=== PATIENT | male | born 1945 | race Caucasian/White ===

== ENCOUNTER 2021-07-05 09:01 | Inpatient (IN) ==
--- NOTE | 2021-07-05 09:17 | Emergency Department Note ---
Impression & Plan Small bowel obstruction, partial, Hypokalemia, Dehydration, Nausea, vomiting and diarrhea ED Provider Note NAME: BRENT SANCHEZ AGE: 76 SEX: M : 1945 ARRIVES VIA: Ambulance INFORMANT: Patient, ED PROVIDER(S): Alvaro Escobedo MD Chief Complaint: Weakness, fatigue HPI: Patient presents with the above complaints and states that they have been ongoing since Monday. Patient is complain of a mild productive cough but is unsure as whether or not he has discolored sputum. Patient is a former smoker last smoking 13 years prior. Patient has had dry heaves and associated nausea but no active vomiting. The patient does have mild diffuse abdominal discomfort and complains of some restless legs and associated achiness. Patient denies any falls or trauma. The patient did try to take some [id number] generic cough medication. This did not seem to improve his symptoms. Patient states he has had decreased appetite but is it been trying to hydrate and thinks that he has been sweating most of his water out to where he feels dehydrated. Patient did not take his morning medications today. The patient's symptoms of gotten progressively worse with no exacerbating remitting factors. Patient denies any rashes and has no pain to the spine, penis or testicles. Patient has not noticed any scrotal swelling or pain. Patient denies any hematuria dysuria hematochezia or difficulty with bowel movement. ROS: See HPI for pertinent positives and negatives. A total of 10 systems were reviewed and otherwise negative. Past medical history: See below Surgical history: See below Social history: See below Physical Exam: GENERAL: Fatigued in appearance, NAD, wearing glasses, wearing a mask, non-toxic. EYE EXAM: Normal conjunctiva. PERRL, no anisocoria and EOM's grossly intact w/o pain. NECK: Supple, no nuchal rigidity, no adenopathy, non-tender. No signs of meningismus. LUNGS: Clear to auscultation. Normal chest wall mechanics. HEART: NSR, no MRG. ABDOMEN: Abdomen soft, non-tender, normo-active bowel sounds, no masses, no rebound or guarding. BACK: No CVA TTP. SKIN: No rashes and no bruising. UPPER EXTREMITIES: Upper extremities are grossly normal. LOWER EXTREMITIES: Grossly normal, no edema. No notable findings, no asymmetry, no calf pain, negative Homans' sign, compartments are soft bilaterally. NEURO EXAM: A&O x3, cranial nerves II-XII grossly intact, normal speech, moves all 4 extremities on command w/o issue. Differential diagnoses: Infection, dehydration, metabolic abnormality, hypo/hyperglycemia, electrolyte disturbance, anemia, hypoxia, cardiac sources, intracerebral event, toxicologic, neurologic, as well as other pathologies. Course: Patient was seen and evaluated the bedside. Full history physical exam was performed. EKG interpreted by me Normal sinus rhythm, rate of 72, normal intervals, normal axis, no obvious ST elevations or TWI. Imaging Studies: See Below Cardiac monitoring: An order was placed for continuous cardiac monitoring. The monitor shows a rate of 78 with sinus rhythm. MDM: Patient was seen due to concern for weakness abdominal discomfort dry heaves. The patient was ordered IV fluids antiemetics chest x-ray and CT abdomen pelvis blood work. Patient blood with a normal white counts and grossly normal hemoglobin at 13.9. Patient's kidney function is unremarkable with very mild hypokalemia. Urinalysis does not show evidence of obvious infection. CT does show enlarged appendix but may be secondary to mass. I did speak with the on-call radiologist Dr. Mcdaniel about this. Patient also has findings that may be consistent with a partial small bowel obstruction. The patient has had some dry heaves and did have diffuse abdominal discomfort but no focal right lower quadrant tenderness to palpation. I did speak the on-call hospitalist negrita Guido PA-C and the patient was admitted by Dr. Lucia. I did also message the general surgery team Abhinav Schwarz PA-C about the patient's SBO as well as the enlarged appendix. Past Med/Surg History Medical History Acute renal failure Coronary atherosclerosis of [place] coronary vessel Social History Smoking Status: Former smoker Preferred Language: Nauruan Feels Safe at Home: Yes Allergies Allergies Allergy/AdvReac Type Severity Reaction Status Date / Time gabapentin Allergy Unknown Unknown Unverified 07/05/21 09:50 duloxetine AdvReac Intermediate Insomnia Unverified 07/05/21 09:50 oxycodone AdvReac Intermediate Abdominal Unverified 07/05/21 09:50 Discomfort, Vomiting, Headache Home Meds Home Medications Medication Instructions Recorded Confirmed Flomax 5 mg PO DAILY 07/05/21 07/05/21 acetaminophen 325 mg tablet 650 mg PO TID PRN 07/05/21 07/05/21 albuterol sulfate 90 mcg/actuation 1 inh INHALATION QID PRN 07/05/21 07/05/21 aerosol inhaler amlodipine 2.5 mg tablet 2.5 mg PO DAILY 07/05/21 07/05/21 aspirin 81 mg tablet,delayed 81 mg PO DAILY 07/05/21 07/05/21 release budesonide-formoterol HFA 160 2 puff INHALATION BID 07/05/21 07/05/21 mcg-4.5 mcg/actuation aerosol inhaler buspirone 5 mg tablet 5 mg PO BID 07/05/21 07/05/21 cilostazol 100 mg tablet 100 mg PO BID 07/05/21 07/05/21 diclofenac sodium 1 % topical gel 2 g TOPICAL BID PRN 07/05/21 07/05/21 hydrocodone 10 mg-acetaminophen 1 tab PO Q6H PRN 07/05/21 07/05/21 325 mg tablet magnesium oxide 420 mg tablet 420 mg PO DAILY 07/05/21 07/05/21 metoprolol succinate 25 mg 12.5 mg PO DAILY 07/05/21 07/05/21 tablet,extended release 24 hr mirtazapine 30 mg tablet 15 mg PO HS 07/05/21 07/05/21 multivitamin 1 tab PO QAM 07/05/21 07/05/21 pantoprazole 20 mg tablet,delayed 20 mg PO DAILY 07/05/21 07/05/21 release pregabalin 150 mg capsule 150 mg PO BID 07/05/21 07/05/21 pregabalin 75 mg capsule 75 mg PO BID 07/05/21 07/05/21 rosuvastatin 40 mg tablet 40 mg PO DAILY 07/05/21 07/05/21 tamsulosin 0.4 mg capsule 0.4 mg PO HS 07/05/21 07/05/21 theophylline 400 mg 400 mg PO DAILY 07/05/21 07/05/21 tablet,extended release 24 hr tiotropium bromide 2.5 2 inh INHALATION QAM 07/05/21 07/05/21 mcg/actuation mist for inhalation Results & Data (ED) Vital Signs Vital Signs - 24 hr 07/05/21 09:08 07/05/21 09:12 07/05/21 10:00 Temperature 36.6 C Temperature Source Oral Pulse Rate 75 73 Pulse Rate [Finger] 74 Pulse Rhythm Regular Regular Pulse Rhythm [Finger] Regular Pulse Strength Normal Pulse Strength [Finger] Normal Respiratory Rate 20 20 19 Respiratory Effort / Characteristics Non-Labored Spontaneous Non-Labored Respiratory Depth Normal Normal Respiratory Pattern Regular Blood Pressure 195/71 H Blood Pressure [Left Arm] 146/60 H Blood Pressure Mean 112 Blood Pressure Mean [Left Arm] 88 Blood Pressure Position Sitting Blood Pressure Position [Left Arm] Sitting Pulse Oximetry 98 98 96 Oxygen Delivery Method Room Air Room Air Room Air Sepsis Recent Fever Within 48 Hours Yes Sepsis New/Unexplained Change in Mental Status No Sepsis Action Taken by Nursing No Action Required 07/05/21 10:47 07/05/21 10:48 07/05/21 12:00 Temperature Temperature Source Pulse Rate Pulse Rate [Finger] 70 69 Pulse Rhythm Pulse Rhythm [Finger] Regular Pulse Strength Pulse Strength [Finger] Normal Respiratory Rate 20 20 Respiratory Effort / Characteristics Non-Labored Spontaneous Non-Labored Spontaneous Respiratory Depth Normal Normal Respiratory Pattern Regular Regular Blood Pressure Blood Pressure [Left Arm] 174/63 H 174/70 H Blood Pressure Mean Blood Pressure Mean [Left Arm] 100 104 Blood Pressure Position Blood Pressure Position [Left Arm] Sitting Pulse Oximetry 98 98 97 Oxygen Delivery Method Room Air Room Air Room Air Sepsis Recent Fever Within 48 Hours Sepsis New/Unexplained Change in Mental Status Sepsis Action Taken by [facility] Medications Current Medication List: was personally reviewed by me Laboratory Data Attestation: I reviewed the patient's lab results. Result diagrams: 07/05/21 09:30 07/05/21 09:12 Lab Results 07/05/21 07/05/21 07/05/21 Range/Units 09:12 09:12 09:12 WBC (4.8-10.8) K/uL RBC (4.7-6.1) M/uL Hgb (14.0-18.0) g/dL Hct (42-52) % MCV (80-100) fL MCH (25-34) pg MCHC (32-36) g/dL RDW Std Deviation (36.4-46.3) fL RDW Coeff of Chauncey (11.5-14.5) % Plt Count (130-400) K/uL MPV (7.4-10.4) fL Immature Gran % (Auto) % Neut % (Auto) % Lymph % (Auto) % [place] % (Auto) % Eos % (Auto) % Baso % (Auto) % Neut # (Auto) (1.4-6.5) K/uL Lymph # (Auto) (1.2-3.4) K/uL [place] # (Auto) (0.11-0.59) K/uL Eos # (Auto) (0-0.5) K/uL Baso # (Auto) (0-0.2) K/uL Immature Gran # (Auto) (0.00-0.02) K/uL Sodium 137 (136-145) mmol/L Potassium 3.3 L (3.5-5.1) mmol/L Chloride 100 (98-107) mmol/L Carbon Dioxide 26 (21-32) mmol/L Anion Gap 11 (3-11) BUN 12 (6-23) mg/dl Creatinine 1.11 (0.6-1.4) mg/dl Est Cr Clr Drug Dosing 62.9 ml/min Est GFR ( Amer) 74.9 ml/min Est GFR (Non-Af Amer) 64.6 ml/min BUN/Creatinine Ratio 10.8 (10-20) Glucose 106 H (70-99(Fasting)) mg/dl Calcium 9.4 (8.5-10.1) mg/dl Phosphorus 2.9 (2.5-4.9) mg/dl Magnesium 1.7 (1.7-2.4) mg/dl Total Bilirubin 0.8 (0.2-1.0) mg/dl AST 11 L (13-39) U/L ALT 6 L (7-52) U/L Alkaline Phosphatase 110 H (34-104) U/L Total Protein 7.6 (6.0-8.3) gm/dl Albumin 4.6 (3.4-5.0) gm/dl Globulin 3.0 (2.5-4.0) gm/dl Albumin/Globulin Ratio 1.5 (0.9-2) TSH 2.629 (0.300-4.500) uIu/ml Urine Color Urine Appearance (Clear) Urine pH (4.5-7.5) Ur Specific [place] (1.000-1.030) Urine Protein (Negative) Urine Glucose (UA) (Negative) Urine Ketones (Negative) Urine Blood (Negative) Urine Nitrite (Negative) Urine Bilirubin (Negative) Urine Urobilinogen (Negative) Ur Leukocyte Esterase (Negative) SARS-CoV-2 (PCR) (Negative) Influenza Type A (PCR) (Neg) Influenza Type B (PCR) (Neg) RSV (RT-PCR) (Neg) 07/05/21 07/05/21 07/05/21 Range/Units 09:30 10:00 11:12 WBC 8.54 (4.8-10.8) K/uL RBC 4.74 (4.7-6.1) M/uL Hgb 13.9 L (14.0-18.0) g/dL Hct 40.5 L (42-52) % MCV 85.4 (80-100) fL MCH 29.3 (25-34) pg MCHC 34.3 (32-36) g/dL RDW Std Deviation 42.3 (36.4-46.3) fL RDW Coeff of Chauncey 13.4 (11.5-14.5) % Plt Count 151 (130-400) K/uL MPV 9.3 (7.4-10.4) fL Immature Gran % (Auto) 0.4 % Neut % (Auto) 69.8 % Lymph % (Auto) 16.2 % [place] % (Auto) 11.6 % Eos % (Auto) 1.9 % Baso % (Auto) 0.1 % Neut # (Auto) 5.97 (1.4-6.5) K/uL Lymph # (Auto) 1.38 (1.2-3.4) K/uL [place] # (Auto) 0.99 H (0.11-0.59) K/uL Eos # (Auto) 0.16 (0-0.5) K/uL Baso # (Auto) 0.01 (0-0.2) K/uL Immature Gran # (Auto) 0.03 H (0.00-0.02) K/uL Sodium (136-145) mmol/L Potassium (3.5-5.1) mmol/L Chloride (98-107) mmol/L Carbon Dioxide (21-32) mmol/L Anion Gap (3-11) BUN (6-23) mg/dl Creatinine (0.6-1.4) mg/dl Est Cr Clr Drug Dosing ml/min Est GFR ( Amer) ml/min Est GFR (Non-Af Amer) ml/min BUN/Creatinine Ratio (10-20) Glucose (70-99(Fasting)) mg/dl Calcium (8.5-10.1) mg/dl Phosphorus (2.5-4.9) mg/dl Magnesium (1.7-2.4) mg/dl Total Bilirubin (0.2-1.0) mg/dl AST (13-39) U/L ALT (7-52) U/L Alkaline Phosphatase (34-104) U/L Total Protein (6.0-8.3) gm/dl Albumin (3.4-5.0) gm/dl Globulin (2.5-4.0) gm/dl Albumin/Globulin Ratio (0.9-2) TSH (0.300-4.500) uIu/ml Urine Color Yellow Urine Appearance Clear (Clear) Urine pH 6.0 (4.5-7.5) Ur Specific [place] 1.040 H (1.000-1.030) Urine Protein Negative (Negative) Urine Glucose (UA) Negative (Negative) Urine Ketones Negative (Negative) Urine Blood Negative (Negative) Urine Nitrite Negative (Negative) Urine Bilirubin Negative (Negative) Urine Urobilinogen Negative (Negative) Ur Leukocyte Esterase Negative (Negative) SARS-CoV-2 (PCR) NEGATIVE (Negative) Influenza Type A (PCR) Negative (Neg) Influenza Type B (PCR) Negative (Neg) RSV (RT-PCR) Negative (Neg) Administered Medications Bisacodyl (Bisacodyl 5 Mg Tabec) 5 mg PO DAILY [facility] Stop: 08/04/21 15:14 Last Admin: 07/05/21 15:35 Dose: 5 mg Documented by: [id number] Lactated Ringer's (Lr) 1,000 mls @ 125 mls/hr IV .Q8H [facility] Stop: 07/06/21 05:55 Last Admin: 07/05/21 15:29 Dose: 125 mls/hr Documented by: [id number] Polyethylene Glycol (Polyethylene (Miralax) 17 Gm Pack) 17 gm PO DAILY JULES Stop: 08/04/21 15:14 Last Admin: 07/05/21 15:35 Dose: 17 gm Documented by: [id number] Discontinued Medications Sodium Chloride (Nss 1000ml) 1,000 mls @ 999 mls/hr IV .Q1H1M JULES Stop: 07/05/21 10:45 Last Infusion: 07/05/21 11:22 Dose: 0 mls/hr Documented by: [id number] Admin: 07/05/21 09:49 Dose: 999 mls/hr Documented by: [id number] Sodium Chloride (Nss 1000ml) 500 mls @ 999 mls/hr IV .Q31M ONE Stop: 07/05/21 11:49 Last Infusion: 07/05/21 12:14 Dose: 0 mls/hr Documented by: [id number] Admin: 07/05/21 11:22 Dose: 999 mls/hr Documented by: [id number] Acetaminophen (Ofirmev) 1,000 mg in 100 mls @ 400 mls/hr IV NOW STA Stop: 07/05/21 11:33 Last Infusion: 07/05/21 12:14 Dose: 0 mls/hr Documented by: [id number] Admin: 07/05/21 11:29 Dose: 400 mls/hr Documented by: [id number] Potassium Chloride (K Jesus / Wtr) 10 meq in 100 mls @ 100 mls/hr IV Q1H STA; Protocol Stop: 07/05/21 14:07 Last Admin: 07/05/21 13:47 Dose: 100 mls/hr Documented by: [id number] Ioversol (Optiray 320 100ml) 95 ml IV ONCE ONE Stop: 07/05/21 10:44 Last Admin: 07/05/21 10:36 Dose: 95 ml Documented by: [id number] Morphine Sulfate (Morphine Sulfate 4 Mg/Ml 1 Ml Carp\Vial) 4 mg IV NOW STA Stop: 07/05/21 09:42 Last Admin: 07/05/21 09:53 Dose: 4 mg Documented by: [id number] Ondansetron HCl (Ondansetron Inj 2 Mg/Ml 2 Ml Vial) 4 mg IV NOW STA Stop: 07/05/21 09:42 Last Admin: 07/05/21 09:53 Dose: 4 mg Documented by: [id number] Imaging Data Radiologist's Impression: Abdomen/Pelvis CT 04/18/22 09:41 CT OF THE ABDOMEN AND PELVIS WITH CONTRAST CLINICAL HISTORY: dry heaves, mild diffuse abdominal pain. COMPARISON STUDY: CT of the abdomen and pelvis June 01, 2014. TECHNIQUE: Following IV administration of 95 mL of Optiray, axial images of the abdomen and pelvis were obtained from the lung bases to the proximal femurs. Images were reviewed in the axial, sagittal, and coronal planes. IV contrast was administered without complication. Automated exposure control was utilized for the study. A dose lowering technique was utilized adhering to the principles of ALARA. CT DOSE: 713.16 mGy.cm FINDINGS: Emphysema is noted within the lower lungs. No pneumatosis, free air or portal venous gas is present. Probable hepatic steatosis. No hepatic lesions are present. There is no biliary or pancreatic ductal dilatation. The spleen and adrenal glands are normal. Multiple water attenuation bilateral renal lesions measure up to 6.3 cm. These reflect cysts. There are numerous subcentimeter renal lesions which are too small to characterize. There is no hydronephrosis. There are no urinary calculi. Colonic diverticulosis is noted without evidence for acute diverticulitis. The proximal jejunum is mildly dilated. There is gradual transition in caliber within the mid jejunum shown on axial image 186 of 461. The more distal small bowel is decompressed. Of note, there is nodular thickening of the mid to distal appendix. Appendiceal tip measures 1.6 cm in caliber. This represents a new finding since CT of June 01, 2014. There is no free air. At most, there is minimal periappendiceal stranding. 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 There is extensive plaque within the distal descending thoracic aorta as well as the abdominal aorta. No suspicious lesions or acute fractures within visualized skeletal structures. IMPRESSION: 1. Nodular thickening of the mid to distal appendix, measuring 1.6 cm in caliber. Equivocal periappendiceal stranding. The findings raise the possibility of an underlying appendiceal mass. Acute appendicitis is considered less likely but is within the differential and surgical consultation is recommended. Findings discussed with Dr. Escobedo at time of dictation. 2. Mild dilatation of the proximal jejunum with decompressed distal small bowel. A low-grade partial small bowel obstruction cannot be excluded. ACT 112: Positive. There are findings on this exam that require communication between the performing entity and the patient following Patient Test Result Information Act ([place] Act 112) guidelines. Electronically signed by: Jaylen Mcdaniel M.D. 07/05/2021 11:02 AM Chest X-Ray 07/05/21 09:41 XR chest 1V portable CLINICAL HISTORY: weakness COMPARISON STUDY: Chest radiograph June 01, 2014. FINDINGS: There is no pneumothorax or pleural effusion. Lung volumes are normal. No evidence for pulmonary edema. No consolidation to suggest pneumonia. Note is again made of upper lobe predominant reticulonodular interstitial thickening with suggestion of innumerable pulmonary nodules which were shown on chest radiograph of June 01, 2014. There is underlying emphysema. IMPRESSION: 1. No acute cardiopulmonary findings. 2. No change in upper lobe predominant reticulonodular interstitial thickening with suggestion of innumerable nodules since chest radiograph of June 01, 2014. Findings remain nonspecific although differential considerations include silicosis, sarcoidosis and coworkers pneumoconiosis. Although difficult to completely exclude by radiography, a neoplastic etiology is considered unlikely given stability. ACT 112: Negative or not required by law. Electronically signed by: Jaylen Mcdaniel M.D. 07/05/2021 10:12 AM Discharge Plan Visit Data Chief Complaint: Illness ED Provider: Alvaro Escobedo Discharge Problem: Small bowel obstruction, partial, Hypokalemia, Dehydration, Nausea, vomiting and diarrhea Patient Disposition: Admitted As Inpatient Discharge Instructions Interventions: ED Discharge Assessment Last Done: 07/05/21 14:05
[2021-07-05] MEDS ORDERED: ONDANSETRON INJ 2 MG/ML 2 ML VIAL IV STA (09:41)
[2021-07-05] MEDS ORDERED: MoRPHine SULFATE 4 MG/ML 1 ML CARP\\VIAL IV STA (09:41)
[2021-07-05] MEDS ORDERED: SODIUM CHLORIDE 0.9% 1000ML 1,000 ML IV SCH (09:45)
[2021-07-05 10:12] LABS: Basophils # (auto) 0.01 K/uL (0-0.2); Basophils % (auto) 0.1 %; Eosinophils # (auto) 0.16 K/uL (0-0.5); Eosinophils % (auto) 1.9 %; Hematocrit (blood only) 40.5 % (42-52); Hemoglobin 13.9 g/dL (14.0-18.0); Immature Granulocytes # (auto) 0.03 K/uL (0.00-0.02); Immature Granulocytes % (auto) 0.4 %; Lymphocytes # (auto) 1.38 K/uL (1.2-3.4); Lymphocytes % (auto) 16.2 %; Mean Corpuscular Hemoglobin 29.3 pg (25-34); Mean Corpuscular Hgb Conc 34.3 g/dL (32-36); Mean Corpuscular Volume 85.4 fL (80-100); Mean Platelet Volume 9.3 fL (7.4-10.4); Monocytes # (auto) 0.99 K/uL (0.11-0.59); Monocytes % (auto) 11.6 %; Neutrophils # (auto) 5.97 K/uL (1.4-6.5); Neutrophils % (auto) 69.8 %; Platelet Count 151 K/uL (130-400); RDW Coefficient of Variation 13.4 % (11.5-14.5); RDW Standard Deviation 42.3 fL (36.4-46.3); Red Blood Count 4.74 M/uL (4.7-6.1); White Blood Count 8.54 K/uL (4.8-10.8)
--- NOTE | 2021-07-05 10:13 | XRay Report ---
XR chest 1V portable CLINICAL HISTORY: weakness COMPARISON STUDY: Chest radiograph June 01, 2014. FINDINGS: There is no pneumothorax or pleural effusion. Lung volumes are normal. No evidence for pulm onary edema. No consolidation to suggest pneumonia. Note is again made of upper lobe predominant reti culonodular interstitial thickening with suggestion of innumerable pulmonary nodules which were shown on chest radiograph of June 01, 2014. There is underlying emphysema. IMPRESSION: 1. No acute cardiopulmonary findings. 2. No change in upper lobe predominant reticulonodular interstitial thickening with suggestion of inn umerable nodules since chest radiograph of June 01, 2014. Findings remain nonspecific although diffe rential considerations include silicosis, sarcoidosis and coworkers pneumoconiosis. Although difficul t to completely exclude by radiography, a neoplastic etiology is considered unlikely given stability. ACT 112: Negative or not required by law. Electronically signed by: Jaylen Mcdaniel M.D. 07/05/2021 10:12 AM
[2021-07-05 10:15] LABS: Albumin Globulin Ratio 1.5 (0.9-2); Albumin Level 4.6 gm/dl (3.4-5.0); BUN Creatinine Ratio 10.8 (10-20); Bilirubin,Total 0.8 mg/dl (0.2-1.0); Calcium 9.4 mg/dl (8.5-10.1); Creatinine Clr Calc Pharmacy 62.9 ml/min; Est GFR (African American) 74.9 ml/min; Est GFR (Non-African American) 64.6 ml/min; Magnesium 1.7 mg/dl (1.7-2.4); Potassium 3.3 mmol/L (3.5-5.1); Total Protein 7.6 gm/dl (6.0-8.3)
[2021-07-05] MEDS ORDERED: OPTIRAY 320 100ml IV ONE (10:43)
--- NOTE | 2021-07-05 11:04 | CT Scan Report ---
CT OF THE ABDOMEN AND PELVIS WITH CONTRAST CLINICAL HISTORY: dry heaves, mild diffuse abdominal pain. COMPARISON STUDY: CT of the abdomen and pelvis June 01, 2014. TECHNIQUE: Following IV administration of 95 mL of Optiray, axial images of the abdomen and pelvis we re obtained from the lung bases to the proximal femurs. Images were reviewed in the axial, sagittal, and coronal planes. IV contrast was administered without complication. Automated exposure control wa s utilized for the study. A dose lowering technique was utilized adhering to the principles of ALARA . CT DOSE: 713.16 mGy.cm FINDINGS: Emphysema is noted within the lower lungs. No pneumatosis, free air or portal venous gas is present. Probable hepatic steatosis. No hepatic lesions are present. There is no biliary or pancreat ic ductal dilatation. The spleen and adrenal glands are normal. Multiple water attenuation bilateral renal lesions measure up to 6.3 cm. These reflect cysts. There are numerous subcentimeter renal lesio ns which are too small to characterize. There is no hydronephrosis. There are no urinary calculi. Col onic diverticulosis is noted without evidence for acute diverticulitis. The proximal jejunum is mildl y dilated. There is gradual transition in caliber within the mid jejunum shown on axial image 186 of 461. The more distal small bowel is decompressed. Of note, there is nodular thickening of the mid to distal appendix. Appendiceal tip measures 1.6 cm in caliber. This represents a new finding since CT o f June 01, 2014. There is no free air. At most, there is minimal periappendiceal stranding. Patent f emoral to femoral bypass graft is noted. There is chronic occlusion of the right common iliac and ext ernal iliac arteries. There is extensive plaque within the distal descending thoracic aorta as well a s the abdominal aorta. No suspicious lesions or acute fractures within visualized skeletal structures . IMPRESSION: 1. Nodular thickening of the mid to distal appendix, measuring 1.6 cm in caliber. Equivocal periappen diceal stranding. The findings raise the possibility of an underlying appendiceal mass. Acute appendi citis is considered less likely but is within the differential and surgical consultation is recommend ed. Findings discussed with Dr. Escobedo at time of dictation. 2. Mild dilatation of the proximal jejunum with decompressed distal small bowel. A low-grade partial small bowel obstruction cannot be excluded. ACT 112: Positive. There are findings on this exam that require communication between the performing entity and the patient following Patient Test Result Information Act ([place] Act 112) guidelines. Electronically signed by: Jaylen Mcdaniel M.D. 07/05/2021 11:02 AM
[2021-07-05 11:10] LABS: Influenza A virus by PCR Negative (Neg); Influenza B virus by PCR Negative (Neg); RSV by PCR Negative (Neg); SARS CoV2 RNA(COVID-19) InHosp NEGATIVE (Negative)
[2021-07-05] MEDS ORDERED: ACETAMINOPHEN 1,000 MG/100 ML VIAL IV STA (11:19)
[2021-07-05] MEDS ORDERED: SODIUM CHLORIDE 0.9% 1000ML 500 ML IV ONE (11:19)
[2021-07-05 11:38] LABS: Appearance Urine Clear (Clear); Bilirubin Urine Negative (Negative); Blood Urine Negative (Negative); Color Urine Yellow; Glucose Urine UA Negative (Negative); Ketones Urine Negative (Negative); Leukocyte Esterase Urine Negative (Negative); Nitrite Urine Negative (Negative); Protein Urine Negative (Negative); Urobilinogen Urine Negative (Negative)
--- NOTE | 2021-07-05 12:58 | History & Physical Report ---
Date of Service July 05, 2021 Assessment & Plan (1) Small bowel obstruction, partial: (2) Dehydration: (3) Nausea, vomiting and diarrhea: Plan: - Admit to med surg - Allow clear diet for now - Given NSS in the ER, will continue with LR x 2 more liters - Continue supportive care, encourage ambulation - General surgery consulted for enlarged appendix - pt is not demonstrating significant abdominal complaints so very low likelihood that this is acute appendicitis that would require immediate surgical intervention. 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 He denies any chest pain. He admits to having fever, chills and sweats the past 3 days, along with weakness, fatigue, body aches and pains. His appetite is poor, and diet consists of chicken noodle and toast recently, he denies any issues with bowel habits. His last BM was 3 days ago, and feels his abdomen is slightly more distended today. He denies abdominal pain, nausea or vomiting. He only noticed abdominal pain once team here in the ER and the hospital started pressing on his abdomen, but it is mild. No known sick contacts, no consumption of raw or undercooked foods. He has chronic back pain and leg pain and uses hydrocodone/acetaminophen for this 4 times daily, but missed all his other medications. He denies any other complaints. Allergies Allergy/AdvReac Type Severity Reaction Status Date / Time gabapentin Allergy Unknown Unknown Unverified 07/05/21 09:50 duloxetine AdvReac Intermediate Insomnia Unverified 07/05/21 09:50 oxycodone AdvReac Intermediate Abdominal Unverified 07/05/21 09:50 Discomfort, Vomiting, Headache Home Medications Medication Instructions Recorded Confirmed Type Flomax 5 mg PO DAILY 07/05/21 07/05/21 History acetaminophen 325 mg tablet 650 mg PO TID PRN 07/05/21 07/05/21 History albuterol sulfate 90 mcg/actuation 1 inh INHALATION QID PRN 07/05/21 07/05/21 History aerosol inhaler amlodipine 2.5 mg tablet 2.5 mg PO DAILY 07/05/21 07/05/21 History aspirin 81 mg tablet,delayed 81 mg PO DAILY 07/05/21 07/05/21 History release budesonide-formoterol HFA 160 2 puff INHALATION BID 07/05/21 07/05/21 History mcg-4.5 mcg/actuation aerosol inhaler buspirone 5 mg tablet 5 mg PO BID 07/05/21 07/05/21 History cilostazol 100 mg tablet 100 mg PO BID 07/05/21 07/05/21 History diclofenac sodium 1 % topical gel 2 g TOPICAL BID PRN 07/05/21 07/05/21 History hydrocodone 10 mg-acetaminophen 1 tab PO Q6H PRN 07/05/21 07/05/21 History 325 mg tablet magnesium oxide 420 mg tablet 420 mg PO DAILY 07/05/21 07/05/21 History metoprolol succinate 25 mg 12.5 mg PO DAILY 07/05/21 07/05/21 History tablet,extended release 24 hr mirtazapine 30 mg tablet 15 mg PO HS 07/05/21 07/05/21 History multivitamin 1 tab PO QAM 07/05/21 07/05/21 History pantoprazole 20 mg tablet,delayed 20 mg PO DAILY 07/05/21 07/05/21 History release pregabalin 150 mg capsule 150 mg PO BID 07/05/21 07/05/21 History pregabalin 75 mg capsule 75 mg PO BID 07/05/21 07/05/21 History rosuvastatin 40 mg tablet 40 mg PO DAILY 07/05/21 07/05/21 History tamsulosin 0.4 mg capsule 0.4 mg PO HS 07/05/21 07/05/21 History theophylline 400 mg 400 mg PO DAILY 07/05/21 07/05/21 History tablet,extended release 24 hr tiotropium bromide 2.5 2 inh INHALATION QAM 07/05/21 07/05/21 History mcg/actuation mist for inhalation Past Med/Surg History Medical History Acute renal failure Coronary atherosclerosis of [place] coronary vessel Social History Smoking Status: Former smoker Preferred Language: Kittitian Feels Safe at Home: Yes Review of Systems Review of Systems: Constitutional: + fever, sweats and chills at home Eyes: No diplopia, no worsening or blurred vision ENT: normal hearing, no trouble swallowing Respiratory: + cough, + yellow sputum, dyspnea at rest or + dyspnea on exertion Cardiovascular: No chest pain, tightness or palpitations Abdomen: No pain, nausea, vomiting, diarrhea or constipation, +last BM was 3 days ago, admits to worsening abdominal distension Musculoskeletal: No joint pain, calf pain, swelling Neurologic: + generalized weakness, numbness/tingling, or balance problems Psychiatric: No anxiety or depression Skin: No rash or itch Physical Exam Physical Exam: General: awake, alert, no apparent distress Head: Normocephalic, atraumatic ENT: PERRL, EOMI, no pharyngeal exudate, mucous membranes moist Chest: Clear to auscultation, on room air, no adventitious breath sounds Cardiac: Regular rate and rhythm, no murmur, no JVD, normal peripheral pulses, good capillary refill Abdominal: NABS x 4 quadrants, soft, + slightly distended, + large mid abdominal hernia, minimally tender to deep palpation in the RLQ, no rebound or guarding Extremities: Normal inspection, no peripheral edema or erythema, calfs nontender to palpation Psych: Normal mood and affect Neuro: AAO x 3, strength intact bilaterally and rated 5/5, no motor deficits, speech is clear, no peripheral sensory deficits Results & Data Results & Data ([facility]) Vital Signs (Past 12 Hours) Vital Signs Temp Pulse Pulse Resp BP BP Pulse Ox 07/05/21 12:00 69 20 174/70 H 97 07/05/21 10:48 98 07/05/21 10:47 70 20 174/63 H 98 07/05/21 10:00 74 19 146/60 H 96 07/05/21 09:12 73 20 98 07/05/21 09:08 36.6 C 75 20 195/71 H 98 Laboratory Results 07/05/21 07/05/21 07/05/21 11:12 10:00 09:30 WBC 8.54 RBC 4.74 Hgb 13.9 L Hct 40.5 L MCV 85.4 MCH 29.3 MCHC 34.3 RDW Std Deviation 42.3 RDW Coeff of Chauncey 13.4 Plt Count 151 MPV 9.3 Immature Gran % (Auto) 0.4 Neut % (Auto) 69.8 Lymph % (Auto) 16.2 Gillespie % (Auto) 11.6 Eos % (Auto) 1.9 Baso % (Auto) 0.1 Neut # (Auto) 5.97 Lymph # (Auto) 1.38 Gillespie # (Auto) 0.99 H Eos # (Auto) 0.16 Baso # (Auto) 0.01 Immature Gran # (Auto) 0.03 H Sodium Potassium Chloride Carbon Dioxide Anion Gap BUN Creatinine Est Cr Clr Drug Dosing Est GFR ( Amer) Est GFR (Non-Af Amer) BUN/Creatinine Ratio Glucose Calcium Magnesium Total Bilirubin AST ALT Alkaline Phosphatase Total Protein Albumin Globulin Albumin/Globulin Ratio TSH Urine Color Yellow Urine Appearance Clear Urine pH 6.0 Ur Specific [place] 1.040 H Urine Protein Negative Urine Glucose (UA) Negative Urine Ketones Negative Urine Blood Negative Urine Nitrite Negative Urine Bilirubin Negative Urine Urobilinogen Negative Ur Leukocyte Esterase Negative SARS-CoV-2 (PCR) NEGATIVE Influenza Type A (PCR) Negative Influenza Type B (PCR) Negative RSV (RT-PCR) Negative 07/05/21 07/05/21 09:12 09:12 WBC RBC Hgb Hct MCV MCH MCHC RDW Std Deviation RDW Coeff of Chauncey Plt Count MPV Immature Gran % (Auto) Neut % (Auto) Lymph % (Auto) Gillespie % (Auto) Eos % (Auto) Baso % (Auto) Neut # (Auto) Lymph # (Auto) Gillespie # (Auto) Eos # (Auto) Baso # (Auto) Immature Gran # (Auto) Sodium 137 Potassium 3.3 L Chloride 100 Carbon Dioxide 26 Anion Gap 11 BUN 12 Creatinine 1.11 Est Cr Clr Drug Dosing 62.9 Est GFR ( Amer) 74.9 Est GFR (Non-Af Amer) 64.6 BUN/Creatinine Ratio 10.8 Glucose 106 H Calcium 9.4 Magnesium 1.7 Total Bilirubin 0.8 AST 11 L ALT 6 L Alkaline Phosphatase 110 H Total Protein 7.6 Albumin 4.6 Globulin 3.0 Albumin/Globulin Ratio 1.5 TSH 2.629 Urine Color Urine Appearance Urine pH Ur Specific [place] Urine Protein Urine Glucose (UA) Urine Ketones Urine Blood Urine Nitrite Urine Bilirubin Urine Urobilinogen Ur Leukocyte Esterase SARS-CoV-2 (PCR) Influenza Type A (PCR) Influenza Type B (PCR) RSV (RT-PCR) Diagnostic Findings Abdomen/Pelvis CT 07/05/21 09:41 CT OF THE ABDOMEN AND PELVIS WITH CONTRAST CLINICAL HISTORY: dry heaves, mild diffuse abdominal pain. COMPARISON STUDY: CT of the abdomen and pelvis June 01, 2014. TECHNIQUE: Following IV administration of 95 mL of Optiray, axial images of the abdomen and pelvis were obtained from the lung bases to the proximal femurs. Images were reviewed in the axial, sagittal, and coronal planes. IV contrast was administered without complication. Automated exposure control was utilized for the study. A dose lowering technique was utilized adhering to the principles of ALARA. CT DOSE: 713.16 mGy.cm FINDINGS: Emphysema is noted within the lower lungs. No pneumatosis, free air or portal venous gas is present. Probable hepatic steatosis. No hepatic lesions are present. There is no biliary or pancreatic ductal dilatation. The spleen and adrenal glands are normal. Multiple water attenuation bilateral renal lesions measure up to 6.3 cm. These reflect cysts. There are numerous subcentimeter renal lesions which are too small to characterize. There is no hydronephrosis. There are no urinary calculi. Colonic diverticulosis is noted without evidence for acute diverticulitis. The proximal jejunum is mildly dilated. There is gradual transition in caliber within the mid jejunum shown on axial image 186 of 461. The more distal small bowel is decompressed. Of note, there is nodular thickening of the mid to distal appendix. Appendiceal tip measures 1.6 cm in caliber. This represents a new finding since CT of June 01, 2014. There is no free air. At most, there is minimal periappendiceal stranding. 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 There is extensive plaque within the distal descending thoracic aorta as well as the abdominal aorta. No suspicious lesions or acute fractures within visualized skeletal structures. IMPRESSION: 1. Nodular thickening of the mid to distal appendix, measuring 1.6 cm in caliber. Equivocal periappendiceal stranding. The findings raise the possibility of an underlying appendiceal mass. Acute appendicitis is considered less likely but is within the differential and surgical consultation is recommended. Findings discussed with Dr. Escobedo at time of dictation. 2. Mild dilatation of the proximal jejunum with decompressed distal small bowel. A low-grade partial small bowel obstruction cannot be excluded. ACT 112: Positive. There are findings on this exam that require communication between the performing entity and the patient following Patient Test Result Information Act ([place] Act 112) guidelines. Electronically signed by: Jaylen Mcdaniel M.D. 07/05/2021 11:02 AM Chest X-Ray 07/05/21 09:41 XR chest 1V portable CLINICAL HISTORY: weakness COMPARISON STUDY: Chest radiograph June 01, 2014. FINDINGS: There is no pneumothorax or pleural effusion. Lung volumes are normal. No evidence for pulmonary edema. No consolidation to suggest pneumonia. Note is again made of upper lobe predominant reticulonodular interstitial thickening with suggestion of innumerable pulmonary nodules which were shown on chest radiograph of June 01, 2014. There is underlying emphysema. IMPRESSION: 1. No acute cardiopulmonary findings. 2. No change in upper lobe predominant reticulonodular interstitial thickening with suggestion of innumerable nodules since chest radiograph of June 01, 2014. Findings remain nonspecific although differential considerations include silicosis, sarcoidosis and coworkers pneumoconiosis. Although difficult to completely exclude by radiography, a neoplastic etiology is considered unlikely given stability. ACT 112: Negative or not required by law. Electronically signed by: Jaylen Mcdaniel M.D. 07/05/2021 10:12 AM Code Status & VTE Plan Code Status Full code Supervising Physician Co-Signing Physician Notes History and physical exam performed by me as detailed by 76-year-old man with hyperlipidemia peripheral vascular disease, BPH who presented with respiratory symptoms for the past few days including cough, shortness of breath and weakness Physical exam is only notable for mid abdominal hernia. I did not appreciate any tenderness on palpation. Chest was clear to auscultation. Lab work was grossly unremarkable except for potassium of 3.3. Chest x-ray did not show any acute findings and reported some nodules Abdominal CT noted nodular thickening of the mid to distal appendix with Equi- Spiro periappendiceal stranding, mild dilatation of proximal jejunum with decompressed distal small bowel. Cough Likely upper respiratory infection Based on my examination and no GI symptoms on review of system, normal for the patient Hunts acute appendicitis. Will follow up surgery evaluation. COVID, flu, RSV negative. Will monitor overnight Supportive treatment BP poorly controlled likely due to patient not taking his meds in the past few days Replete hypokalemia Agree with other treatment as detailed by Ailyn Guido PA-C
[2021-07-05] MEDS ORDERED: POTASSIUM CHLORIDE / WTR 10 MEQ/100 ML PLCT IV STA (13:08)
--- NOTE | 2021-07-05 14:00 | Surgery Consultation ---
Date of Consultation July 05, 2021 Assessment & Plan Likely viral syndrome and mild ileus, doubt SBO and appendicitis. Will monitor labs and serial exams. Abnormal appearing distal appendix, consider elective appendectomy vs repeat CT as an outpatient. Supervising Physician Co-Signing Physician Notes Dr. Hutchisonpatient with worsening cough and sputum production, also some nausea but no specific emesis Findings on CT scan of mildly dilated jejunum and also abnormality involving the tip of the appendix at 1.5 cm Patient does not require urgent surgical intervention. Could probably have clear liquids from a surgical standpoint Appendix can be taken care of as an elective procedure later on Check electrolytes including mag and Phos History of Present Illness History of Present Illness 76 y/o male with flu like symptoms for the past 3 days including cough, dry heaves, congestion. Has not had BM for two days but has been having more flatus than normal. Has been taking some liquids, not much of an appetite. No previous abdominal surgery. Had fem-fem bypass 20-25 years ago. Had normal colonoscopy within the past year. Allergies Allergy/AdvReac Type Severity Reaction Status Date / Time gabapentin Allergy Unknown Unknown Unverified 07/05/21 09:50 duloxetine AdvReac Intermediate Insomnia Unverified 07/05/21 09:50 oxycodone AdvReac Intermediate Abdominal Unverified 07/05/21 09:50 Discomfort, Vomiting, Headache Home Medications Medication Instructions Recorded Confirmed Type Flomax 5 mg PO DAILY 07/05/21 07/05/21 History acetaminophen 325 mg tablet 650 mg PO TID PRN 07/05/21 07/05/21 History albuterol sulfate 90 mcg/actuation 1 inh INHALATION QID PRN 07/05/21 07/05/21 History aerosol inhaler amlodipine 2.5 mg tablet 2.5 mg PO DAILY 07/05/21 07/05/21 History aspirin 81 mg tablet,delayed 81 mg PO DAILY 07/05/21 07/05/21 History release budesonide-formoterol HFA 160 2 puff INHALATION BID 07/05/21 07/05/21 History mcg-4.5 mcg/actuation aerosol inhaler buspirone 5 mg tablet 5 mg PO BID 07/05/21 07/05/21 History cilostazol 100 mg tablet 100 mg PO BID 07/05/21 07/05/21 History diclofenac sodium 1 % topical gel 2 g TOPICAL BID PRN 07/05/21 07/05/21 History hydrocodone 10 mg-acetaminophen 1 tab PO Q6H PRN 07/05/21 07/05/21 History 325 mg tablet magnesium oxide 420 mg tablet 420 mg PO DAILY 07/05/21 07/05/21 History metoprolol succinate 25 mg 12.5 mg PO DAILY 07/05/21 07/05/21 History tablet,extended release 24 hr mirtazapine 30 mg tablet 15 mg PO HS 07/05/21 07/05/21 History multivitamin 1 tab PO QAM 07/05/21 07/05/21 History pantoprazole 20 mg tablet,delayed 20 mg PO DAILY 07/05/21 07/05/21 History release pregabalin 150 mg capsule 150 mg PO BID 07/05/21 07/05/21 History pregabalin 75 mg capsule 75 mg PO BID 07/05/21 07/05/21 History rosuvastatin 40 mg tablet 40 mg PO DAILY 07/05/21 07/05/21 History tamsulosin 0.4 mg capsule 0.4 mg PO HS 07/05/21 07/05/21 History theophylline 400 mg 400 mg PO DAILY 07/05/21 07/05/21 History tablet,extended release 24 hr tiotropium bromide 2.5 2 inh INHALATION QAM 07/05/21 07/05/21 History mcg/actuation mist for inhalation Patient History Medical History Acute renal failure Coronary atherosclerosis of [place] coronary vessel Social History Smoking Status: Former smoker Preferred Language: Frisian Feels Safe at Home: Yes Review of Systems Constitutional: + sweats and + anorexia; no fever and no chills Ear, Nose, Mouth, Throat: + nasal congestion Respiratory: + cough Gastrointestinal: + bloating and + nausea (dry heaves); no abdominal pain and no change in bowel habits Physical Exam Constitutional: WD/WN, vitals as above Gastrointestinal (Abdomen): Inspection/Auscultation: + abdomen distended (minimal) Percussion/Palpation: + abdomen tender (minimal RLQ) and abdomen soft; no guarding Results & Data ([facility]) Vital Signs (Past 12 Hours) Vital Signs Temp Pulse Pulse Resp BP BP Pulse Ox 07/05/21 12:00 69 20 174/70 H 97 07/05/21 10:48 98 07/05/21 10:47 70 20 174/63 H 98 07/05/21 10:00 74 19 146/60 H 96 07/05/21 09:12 73 20 98 07/05/21 09:08 36.6 C 75 20 195/71 H 98 PG Care Time/CCT Total # of Minutes Spent Total Time Spent with Patient: Total time spent is greater than 50% in coordination of care (as documented) at patient's floor/unit and/or counseling patient: Coding Level of Care Code 09273 Office/Outpt Visit, New
--- NOTE | 2021-07-05 14:15 | Electrocardiogram Report ---
Test Reason : Blood Pressure : / mmHG Vent. Rate : 072 BPM Atrial Rate : 072 BPM P-R Int : 154 ms QRS Dur : 092 ms QT Int : 384 ms P-R-T Axes : 065 054 065 degrees QTc Int : 420 ms Normal sinus rhythm Normal ECG When compared with ECG of 01-JUN-2014 11:44, Vent. rate has decreased BY 60 BPM Confirmed by Amish Echeverria ([id number]) on 07/05/2021 2:15:16 PM Referred By: REFERRED SELF Confirmed By:Charlie Echeverria
[2021-07-05] MEDS ORDERED: LEVALBUTEROL 1.25MG/0.5ML NEB NEB SCH (14:16)
[2021-07-05] MEDS ORDERED: POTASSIUM CHLORIDE CRTAB 20 MEQ TABCR PO STA (14:51)
[2021-07-05] MEDS ORDERED: ALBUTEROL HFA 8 GM INHALER INH PRN (15:01)
[2021-07-05] MEDS ORDERED: DICLOFENAC SOD 1% GEL 100 GM TUBE EXT PRN (15:01)
[2021-07-05] MEDS ORDERED: ACETAMINOPHEN 325 MG TAB PO PRN (15:01)
[2021-07-05] MEDS ORDERED: HYDROcodone/ACETAMINOPHEN 10/325 TAB PO PRN (15:01)
[2021-07-05] MEDS ORDERED: ONDANSETRON INJ 2 MG/ML 2 ML VIAL IV PRN (15:01)
[2021-07-05] MEDS: LACTATED RINGER'S 1,000 ML IV SCH ×2 (15:29→22:43)
[2021-07-05] MEDS: bisacodyL 5 MG TABEC PO SCH (15:35)
[2021-07-05] MEDS: POLYETHYLENE (MIRALAX) 17 GM PACK PO SCH (15:35)
[2021-07-05] MEDS: LEVALBUTEROL 1.25MG/0.5ML NEB NEB SCH (20:13)
[2021-07-05] MEDS: busPIRone 5 MG TAB PO SCH (20:21)
[2021-07-05] MEDS: TAMSULOSIN HCL 0.4 MG CAP PO SCH (20:21)
[2021-07-05] MEDS: PREGABALIN 75 MG CAP PO SCH (20:21)
[2021-07-05] MEDS: MIRTAZAPINE TAB 15 MG TAB PO SCH (20:21)
[2021-07-05] MEDS: cilostazoL 100 MG TAB PO SCH (20:21)
[2021-07-05] MEDS: HEPARIN SOD 5,000 UNIT/0.5 ML VIAL SQ SCH (20:22)
[2021-07-05] MEDS: PREGABALIN 150 MG CAP PO SCH (20:22)
[2021-07-05] MEDS: guaiFENesin 600 MG TABCR PO SCH (20:58)
[2021-07-06] MEDS: LEVALBUTEROL 1.25MG/0.5ML NEB NEB SCH ×4 (00:40→19:24)
[2021-07-06] MEDS: ACETAMINOPHEN 325 MG TAB PO PRN ×3 (06:20→23:14)
[2021-07-06 08:22] LABS: Hematocrit (blood only) 33.7 % (42-52); Hemoglobin 11.4 g/dL (14.0-18.0); Mean Corpuscular Hemoglobin 29.4 pg (25-34); Mean Corpuscular Hgb Conc 33.8 g/dL (32-36); Mean Corpuscular Volume 86.9 fL (80-100); Mean Platelet Volume 9.1 fL (7.4-10.4); Platelet Count 115 K/uL (130-400); RDW Coefficient of Variation 13.9 % (11.5-14.5); RDW Standard Deviation 44.1 fL (36.4-46.3); Red Blood Count 3.88 M/uL (4.7-6.1); White Blood Count 5.86 K/uL (4.8-10.8)
--- NOTE | 2021-07-06 08:34 | Surgery Progress Note ---
Date of Service July 06, 2021 Assessment & Plan (1) Small bowel obstruction, partial: Plan: Patient feeling okay this AM WBC 5, temp: 37.7C this AM He is tolerating clear liquids and reporting + bowel function; consider advancing diet as tolerates No plans for surgical intervention for lap appendectomy while in house, can f/u with us as outpt Hospitalists working up low O2 sats Admission and Anticipated Discharge Date Admission Date: July 05, 2021 Subjective Patient said he did not sleep well due to coughing. He otherwise says he is feeling okay. Tolerating liquids. Reports passing flatus/BMs. Physical Exam Physical Exam: sleeping, but arousable and communicative Gastrointestinal (Abdomen): Percussion/Palpation: abdomen soft Results & Data ([facility]) Vital Signs (Past 12 Hours) Vital Signs Temp Pulse Resp BP Pulse Ox 07/06/21 07:49 37.7 C H 104 H 22 145/71 H 89 L 07/06/21 07:24 100 H 17 86 L 07/06/21 02:00 37.5 C 07/06/21 00:43 111 H 22 90 07/05/21 22:06 37.3 C 94 H 18 148/66 H 95 PG Care Time/CCT Total # of Minutes Spent Total Time Spent with Patient: Total time spent is greater than 50% in coordination of care (as documented) at patient's floor/unit and/or counseling patient: Coding Level of Care Code 60689 Subseq Hosp Care Lvl 1 Diagnoses Small bowel obstruction, partial K56.600
--- NOTE | 2021-07-06 08:40 | XRay Report ---
XR chest 1V portable CLINICAL HISTORY: Reeval, hypoxia TECHNIQUE: Single frontal radiograph of the chest was obtained. Comparison: Comparison is made to chest radiograph 07/05/2021 FINDINGS: No lines and tubes are seen. The cardiomediastinal silhouette is normal. There is an airspace opacity in the left lateral lung base, new from prior exam. Reticulonodular opacities favoring the upper klaudia g are again seen. No evidence of pleural effusion or pneumothorax. IMPRESSION: 1. Small airspace opacity in the left lung base may represent aspiration, atelectasis, and/or pneumo [place]. 2. Reticulonodular opacities are again seen favoring the upper lobes which may represent pneumoconio ses. ACT 112: Negative or not required by law. Electronically signed by: Martin Burdick M.D. 07/06/2021 8:39 AM
[2021-07-06 08:49] LABS: Albumin Globulin Ratio 1.5 (0.9-2); Albumin Level 3.7 gm/dl (3.4-5.0); BUN Creatinine Ratio 8.8 (10-20); Bilirubin,Total 0.7 mg/dl (0.2-1.0); Calcium 8.2 mg/dl (8.5-10.1); Creatinine Clr Calc Pharmacy 61.3 ml/min; Est GFR (African American) 72.5 ml/min; Est GFR (Non-African American) 62.6 ml/min; Globulin 2.4 gm/dl (2.5-4.0); Potassium 3.2 mmol/L (3.5-5.1); Total Protein 6.1 gm/dl (6.0-8.3)
[2021-07-06] MEDS: ROSUVASTATIN CALCIUM 20 MG TAB PO SCH (08:51)
[2021-07-06] MEDS: ASPIRIN 81 MG ECTAB PO SCH (08:51)
[2021-07-06] MEDS: THEOPHYLLINE 400 MG EXTENDED REL TAB PO SCH (08:51)
[2021-07-06] MEDS: METOPROLOL SUCC 25MG EXT REL TAB PO SCH (08:52)
[2021-07-06] MEDS: amLODIPine BESYLATE 5 MG TAB PO SCH (08:52)
[2021-07-06] MEDS: cilostazoL 100 MG TAB PO SCH ×2 (08:53→21:14)
[2021-07-06] MEDS: MAGNESIUM OXIDE 400 MG TAB PO SCH (08:53)
[2021-07-06] MEDS: PANTOprazole 40 MG TAB PO SCH (08:53)
[2021-07-06] MEDS: MULTIVITAMIN TAB PO SCH (08:53)
[2021-07-06] MEDS: busPIRone 5 MG TAB PO SCH ×2 (08:53→21:15)
[2021-07-06] MEDS: UMECLIDINIUM BROMIDE 62.5MCG/BLISTER 7 PUFFS/INHALER INH SCH (08:54)
[2021-07-06] MEDS: FLUTICASONE/VILANTEROL 100/25MCG 14 PUFFS/INHALER INH SCH (08:54)
[2021-07-06] MEDS ORDERED: FLOMAX PO SCH (09:00)
[2021-07-06] MEDS: POLYETHYLENE (MIRALAX) 17 GM PACK PO SCH (09:04)
[2021-07-06] MEDS: bisacodyL 5 MG TABEC PO SCH (09:04)
[2021-07-06] MEDS: HEPARIN SOD 5,000 UNIT/0.5 ML VIAL SQ SCH ×2 (09:06→21:16)
[2021-07-06] MEDS: PREGABALIN 75 MG CAP PO SCH ×2 (09:12→22:56)
[2021-07-06] MEDS: PREGABALIN 150 MG CAP PO SCH ×2 (09:12→22:56)
[2021-07-06] MEDS ORDERED: cefTRIAXone SODIUM 1,000 MG in DEXTROSE 5% 50 ML IV SCH (09:45)
[2021-07-06] MEDS ORDERED: POTASSIUM CHLORIDE CRTAB 20 MEQ TABCR PO STA (09:53)
[2021-07-06] MEDS ORDERED: ALBUTEROL HFA 8 GM INHALER INH PRN (10:00)
[2021-07-06] MEDS ORDERED: DOXYCYCLINE HYCLATE 100 MG CAP PO SCH (10:00)
--- NOTE | 2021-07-06 10:03 | Hospitalist Progress Note ---
Date of Service July 06, 2021 Assessment & Plan (1) SOB (shortness of breath): Plan: Presented with cough, shortness of breath, weakness and nausea But had nodules. Patient has mild temperature of 37.7 this morning and was hypoxic requiring oxygen. Repeated chest x-ray this morning which showed small airspace opacity in the left lung base. Likely evolving pneumonia Start ceftriaxone and doxycycline. Wean oxygen as tolerated Considering patient's drowsiness, will hold. For now and reassess later. Continue supportive care with Mucinex (2) Hypokalemia: (3) Small bowel obstruction, partial: Plan: CT abdomen pelvis on admission reported nodular thickening of mid to distal appendix, equivocal periappendiceal stranding. However, patient does not have any abdominal tenderness. Appendicitis is unlikely. CT also reported mild dilatation of proximal jejunum with decompressed distal small bowel and low-grade partial SBO cannot be excluded. Patient tolerating diet. Had requested to be on clears and to advance. Advance diet as tolerated Monitor bowel movement Monitor electrolyte and replete as appropriate. Hypokalemic this morning, replete. 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 Reported poor sleep last night Reports cough. Denied shortness of breath Denied any chest pain, palpitation Denied abd pain, nausea, vomiting. Limited ROS due to drowsiness as patient kept falling asleep Physical Exam Constitutional: + well hydrated; no acute distress Eyes: PERRL, conjunctivae normal, anicteric sclerae ENMT: external ear and nose normal, oropharynx normal Respiratory: normal respiratory effort; no respiratory distress Diminished breath sounds, no crackles Cardiovascular: RRR S1 S2 Gastrointestinal (Abdomen): normal bowel sounds, soft, nontender, no hepatosplenomegaly Musculoskeletal: No pedal edema Neurologic: PERRL, EOMI, accommodation nl, no face palsy, no dysarthria Drowsy but arousable Results & Data Results & Data ([facility]) Vital Signs (Past 12 Hours) Vital Signs Temp Pulse Resp BP Pulse Ox 07/06/21 07:49 37.7 C H 104 H 22 145/71 H 89 L 07/06/21 07:24 100 H 17 86 L 07/06/21 02:00 37.5 C 07/06/21 00:43 111 H 22 90 07/05/21 22:06 37.3 C 94 H 18 148/66 H 95 Laboratory Results Abnormal lab results 07/06/21 07/06/21 Range/Units 07:16 07:16 RBC 3.88 L (4.7-6.1) M/uL Hgb 11.4 L (14.0-18.0) g/dL Hct 33.7 L (42-52) % Plt Count 115 L (130-400) K/uL Potassium 3.2 L (3.5-5.1) mmol/L BUN/Creatinine Ratio 8.8 L (10-20) Calcium 8.2 L (8.5-10.1) mg/dl AST 9 L (13-39) U/L ALT 5 L (7-52) U/L Globulin 2.4 L (2.5-4.0) gm/dl
[2021-07-06] MEDS: guaiFENesin 600 MG TABCR PO SCH ×2 (10:19→21:13)
[2021-07-06] MEDS: POTASSIUM CHLORIDE / WTR 10 MEQ/100 ML PLCT IV SCH ×4 (10:24→14:17)
[2021-07-06] MEDS: cefTRIAXone SODIUM 2,000 MG in DEXTROSE 5% 50 ML IV SCH (10:50)
[2021-07-06] MEDS: DOXYCYCLINE HYCLATE 100 MG in DEXTROSE 5% 100 ML IV SCH ×2 (11:29→22:56)
[2021-07-06 11:33] LABS: Magnesium 1.7 mg/dl (1.7-2.4); Phosphorus 3.6 mg/dl (2.5-4.9)
[2021-07-06] MEDS: TAMSULOSIN HCL 0.4 MG CAP PO SCH (21:14)
[2021-07-06] MEDS: MIRTAZAPINE TAB 15 MG TAB PO SCH (21:14)
[2021-07-06] MEDS ORDERED: SODIUM CHLORIDE 0.9% 1000ML 1,000 ML IV ONE (23:15)
[2021-07-07] MEDS: LEVALBUTEROL 1.25MG/0.5ML NEB NEB SCH ×2 (00:55→07:24)
--- NOTE | 2021-07-07 07:24 | Surgery Progress Note ---
Date of Service July 07, 2021 Assessment & Plan (1) Small bowel obstruction, partial: Plan: Patient with loose bowel movements Does not appear to be obstructed C. difficile pending We will advance his diet and see how he does Currently on antibiotics for suspected progressing pneumonia Admission and Anticipated Discharge Date Admission Date: July 05, 2021 Subjective Patient did have a fever No complaints of pain including no abdominal pain Having loose bowel movements He is very hungry Physical Exam Physical Exam: Patient is awake and alert He does have a cough which is somewhat productive His abdomen is mildly distended but he does have bowel sounds and no tenderness Including no tenderness deep in the right lower quadrant Results & Data ([facility]) Vital Signs (Past 12 Hours) Vital Signs Temp Pulse Resp BP Pulse Ox 07/06/21 22:48 38.6 C H 88 18 153/67 H 93 07/06/21 19:25 101 H 18 94 PG Care Time/CCT Total # of Minutes Spent Total Time Spent with Patient: Total time spent is greater than 50% in coordination of care (as documented) at patient's floor/unit and/or counseling patient: Coding Level of Care Code 07115 Subseq Hosp Care Lvl 2 Diagnoses Small bowel obstruction, partial K56.600
[2021-07-07] MEDS: LEVALBUTEROL HCL 1.25 MG/3 ML NEB NEB SCH ×2 (07:27→12:38)
[2021-07-07] MEDS: THEOPHYLLINE 400 MG EXTENDED REL TAB PO SCH (08:06)
[2021-07-07] MEDS: ROSUVASTATIN CALCIUM 20 MG TAB PO SCH (08:06)
[2021-07-07] MEDS: PANTOprazole 40 MG TAB PO SCH (08:06)
[2021-07-07] MEDS: MAGNESIUM OXIDE 400 MG TAB PO SCH (08:06)
[2021-07-07] MEDS: METOPROLOL SUCC 25MG EXT REL TAB PO SCH (08:06)
[2021-07-07] MEDS: amLODIPine BESYLATE 5 MG TAB PO SCH (08:06)
[2021-07-07] MEDS: MULTIVITAMIN TAB PO SCH (08:06)
[2021-07-07] MEDS: ASPIRIN 81 MG ECTAB PO SCH ×2 (08:07→08:09)
[2021-07-07] MEDS: bisacodyL 5 MG TABEC PO SCH (08:07)
[2021-07-07] MEDS: UMECLIDINIUM BROMIDE 62.5MCG/BLISTER 7 PUFFS/INHALER INH SCH (08:08)
[2021-07-07] MEDS: FLUTICASONE/VILANTEROL 100/25MCG 14 PUFFS/INHALER INH SCH (08:08)
[2021-07-07] MEDS: guaiFENesin 600 MG TABCR PO SCH ×2 (08:09→21:54)
[2021-07-07] MEDS: busPIRone 5 MG TAB PO SCH ×2 (08:09→21:51)
[2021-07-07] MEDS: cilostazoL 100 MG TAB PO SCH ×2 (08:09→21:51)
[2021-07-07] MEDS: HEPARIN SOD 5,000 UNIT/0.5 ML VIAL SQ SCH ×2 (08:10→21:51)
[2021-07-07] MEDS: POLYETHYLENE (MIRALAX) 17 GM PACK PO SCH (08:10)
[2021-07-07] MEDS: PREGABALIN 150 MG CAP PO SCH ×2 (08:12→21:51)
[2021-07-07] MEDS: PREGABALIN 75 MG CAP PO SCH ×2 (08:12→21:51)
[2021-07-07] MEDS: cefTRIAXone SODIUM 2,000 MG in DEXTROSE 5% 50 ML IV SCH (08:57)
[2021-07-07 09:15] LABS: Hematocrit (blood only) 37.7 % (42-52); Hemoglobin 12.6 g/dL (14.0-18.0); Mean Corpuscular Hemoglobin 29.1 pg (25-34); Mean Corpuscular Hgb Conc 33.4 g/dL (32-36); Mean Corpuscular Volume 87.1 fL (80-100); Mean Platelet Volume 9.1 fL (7.4-10.4); Platelet Count 145 K/uL (130-400); RDW Coefficient of Variation 13.9 % (11.5-14.5); RDW Standard Deviation 44.4 fL (36.4-46.3); Red Blood Count 4.33 M/uL (4.7-6.1); White Blood Count 9.51 K/uL (4.8-10.8)
[2021-07-07 09:44] LABS: BUN Creatinine Ratio 7.1 (10-20); Calcium 8.9 mg/dl (8.5-10.1); Creatinine Clr Calc Pharmacy 55.4 ml/min; Est GFR (African American) 64.2 ml/min; Est GFR (Non-African American) 55.4 ml/min; Magnesium 1.7 mg/dl (1.7-2.4); Phosphorus 1.8 mg/dl (2.5-4.9); Potassium 2.9 mmol/L (3.5-5.1)
[2021-07-07] MEDS: DOXYCYCLINE HYCLATE 100 MG in DEXTROSE 5% 100 ML IV SCH ×2 (09:51→22:49)
[2021-07-07] MEDS ORDERED: POTASSIUM PHOS 3 MMOL/1 ML INFUSION IV ONE (10:25)
[2021-07-07] MEDS ORDERED: POTASSIUM CHLORIDE CRTAB 20 MEQ TABCR PO ONE ×2 (10:45→18:00)
[2021-07-07] MEDS: POTASSIUM CHLORIDE / WTR 10 MEQ/100 ML PLCT IV SCH ×2 (11:08→12:28)
[2021-07-07 11:44] LABS: Cdiff Antigen Positive; Cdiff Toxin A+B Negative Cdiff Toxin (Negative)
[2021-07-07] MEDS: ADVANCED PROBIOTIC 1250 MG CAPSULE PO SCH (11:46)
[2021-07-07] MEDS ORDERED: POTASSIUM PHOSPHATE 24 MMOL in SODIUM CHLORIDE 0.9% 500 ML IV ONE (12:45)
[2021-07-07] MEDS ORDERED: LEVALBUTEROL HCL 1.25 MG/3 ML NEB NEB PRN (13:07)
--- NOTE | 2021-07-07 18:21 | Hospitalist Progress Note ---
Date of Service July 07, 2021 Assessment & Plan (1) SOB (shortness of breath): Plan: Left Lung Pneumonia CXR:Small airspace opacity in the left lung base may represent aspiration, atelectasis, and/or pneumonia. Reticulonodular opacities are again seen favoring the upper lobes which may represent pneumoconioses. Normal Procalcitonin Blood Cx: Negative to date Continue ceftriaxone and doxycycline. Starting low 90s on room Pulmonary Nodules Follow-up as outpatient (2) Hypokalemia: Plan: Hypokalemia Hypophosphatemia Replete electrolytes as needed (3) Small bowel obstruction, partial: Plan: CT abdomen pelvis on admission reported nodular thickening of mid to distal appendix, equivocal periappendiceal stranding. However, patient does not have any abdominal tenderness. Appendicitis is unlikely. CT also reported mild dilatation of proximal jejunum with decompressed distal small bowel and low-grade partial SBO cannot be excluded. Appreciate surgery input Currently having bowel movements Advance diet as tolerated Diarrhea C. difficile toxin negative Monitor (4) Coronary atherosclerosis of [place] coronary vessel: Plan: Stable Continue asa 81 mg daily, metoprolol succinate 12.5 mg (5) HLD (hyperlipidemia): Plan: Continue rosuvastatin (6) Allergic rhinitis: Plan: - Continue home meds Plan: Continue cilostazol for PVD Continue Flomax for BPH DVT Px: Heparin SQ Admission and Anticipated Discharge Date Admission Date: July 05, 2021 Subjective Patient is seen and examined at bedside States feeling very tired today Was poorly slept overnight Less cough today Has intermittent diarrhea Offers no other complaints Review of Systems Review of Systems: All systems reviewed & are unremarkable except as noted in Subjective Physical Exam Physical Exam: Physical Exam: Vitals signs as noted above General Appearance:Moderately built and nourished, no apparent distress Head: normocephalic, Atraumatic Eyes: normal inspection, EOMI, PERRL Neck: supple, Trachea midline Respiratory/Chest: Decreased breath sounds, CTA, No accessory muscle use Cardiovascular: S1, S2, No murmur Abdomen/GI:Soft, Non tender, Bowel sounds present Extremities/Musculoskeletal:normal inspection, no edema Neurologic/Psych:grossly no focal neurological deficits Skin: normal color, warm Results & Data Results & Data ([facility]) Vital Signs (Past 12 Hours) Vital Signs Temp Pulse Resp BP Pulse Ox 07/07/21 16:19 37.1 C 105 H 18 165/70 H 92 07/07/21 14:51 94 07/07/21 12:39 99 H 18 95 07/07/21 07:34 36.9 C 107 H 18 168/65 H 95 07/07/21 07:27 93 H 18 96 Laboratory Results Short CBC 07/07/21 Range/Units 08:38 WBC 9.51 (4.8-10.8) K/uL Hgb 12.6 L (14.0-18.0) g/dL Hct 37.7 L (42-52) % Plt Count 145 (130-400) K/uL BMP 07/07/21 08:38 Sodium 140 Potassium 2.9 L Chloride 104 Carbon Dioxide 25 BUN 9 Creatinine 1.26 Glucose 112 H Calcium 8.9
[2021-07-07] MEDS: MIRTAZAPINE TAB 15 MG TAB PO SCH (21:51)
[2021-07-07] MEDS: TAMSULOSIN HCL 0.4 MG CAP PO SCH (21:54)
[2021-07-07] MEDS: ACETAMINOPHEN 325 MG TAB PO PRN (22:53)
--- NOTE | 2021-07-08 07:25 | Surgery Progress Note ---
Date of Service July 08, 2021 Assessment & Plan (1) Small bowel obstruction, partial: Plan: Does not appear to have a bowel obstruction No plan for surgical intervention Patient discussed possible transfer to [facility] He actually wants to go home but he does live alone Admission and Anticipated Discharge Date Admission Date: July 05, 2021 Subjective Patient has been afebrile Tolerating his diet with loose bowel movements Some occasional abdominal discomfort Less cough Physical Exam Physical Exam: Mild abdominal distention No significant tenderness Some discomfort to very deep palpation Results & Data ([facility]) Vital Signs (Past 12 Hours) Vital Signs Temp Pulse Resp BP Pulse Ox 07/07/21 21:16 36.8 C 100 H 18 165/81 H 93 PG Care Time/CCT Total # of Minutes Spent Total Time Spent with Patient: Total time spent is greater than 50% in coordination of care (as documented) at patient's floor/unit and/or counseling patient: Coding Level of Care Code 19144 Subseq Hosp Care Lvl 2 Diagnoses Small bowel obstruction, partial K56.600
[2021-07-08] MEDS ORDERED: PANTOprazole 40 MG TAB PO SCH (09:00)
[2021-07-08] MEDS: bisacodyL 5 MG TABEC PO SCH (09:28)
[2021-07-08] MEDS: amLODIPine BESYLATE 5 MG TAB PO SCH (09:29)
[2021-07-08] MEDS: busPIRone 5 MG TAB PO SCH (09:30)
[2021-07-08] MEDS: FLUTICASONE/VILANTEROL 100/25MCG 14 PUFFS/INHALER INH SCH (09:30)
[2021-07-08] MEDS: guaiFENesin 600 MG TABCR PO SCH (09:31)
[2021-07-08] MEDS: UMECLIDINIUM BROMIDE 62.5MCG/BLISTER 7 PUFFS/INHALER INH SCH (09:32)
[2021-07-08] MEDS: ADVANCED PROBIOTIC 1250 MG CAPSULE PO SCH (09:32)
[2021-07-08] MEDS: THEOPHYLLINE 400 MG EXTENDED REL TAB PO SCH (09:32)
[2021-07-08] MEDS: cilostazoL 100 MG TAB PO SCH (09:33)
[2021-07-08] MEDS: MAGNESIUM OXIDE 400 MG TAB PO SCH (09:34)
[2021-07-08] MEDS: MULTIVITAMIN TAB PO SCH (09:35)
[2021-07-08] MEDS: METOPROLOL SUCC 25MG EXT REL TAB PO SCH (09:35)
[2021-07-08] MEDS: POLYETHYLENE (MIRALAX) 17 GM PACK PO SCH (09:36)
[2021-07-08] MEDS: ROSUVASTATIN CALCIUM 20 MG TAB PO SCH (09:36)
[2021-07-08 09:43] LABS: BUN Creatinine Ratio 7.6 (10-20); Calcium 9.3 mg/dl (8.5-10.1); Creatinine Clr Calc Pharmacy 48.5 ml/min; Est GFR (African American) 54.7 ml/min; Est GFR (Non-African American) 47.2 ml/min; Potassium 3.8 mmol/L (3.5-5.1)
[2021-07-08] MEDS: PREGABALIN 150 MG CAP PO SCH (09:45)
[2021-07-08] MEDS: PREGABALIN 75 MG CAP PO SCH (09:45)
[2021-07-08] MEDS: HEPARIN SOD 5,000 UNIT/0.5 ML VIAL SQ SCH (09:47)
[2021-07-08] MEDS: cefTRIAXone SODIUM 2,000 MG in DEXTROSE 5% 50 ML IV SCH (09:48)
[2021-07-08] MEDS ORDERED: DOXYCYCLINE HYCLATE 100 MG CAP PO SCH (10:00)
[2021-07-08] MEDS ORDERED: SODIUM CHLORIDE 0.9% 1000ML 1,000 ML IV ONE (10:07)
[2021-07-08] MEDS ORDERED: POTASSIUM PHOS 3 MMOL/1 ML INFUSION IV ONE (10:08)
[2021-07-08] MEDS ORDERED: POTASSIUM PHOSPHATE 21 MMOL in SODIUM CHLORIDE 0.9% 500 ML IV ONE (10:15)
--- NOTE | 2021-07-08 11:28 | Hospitalist Progress Note ---
Date of Service July 08, 2021 Assessment & Plan (1) SOB (shortness of breath): Plan: Left Lung Pneumonia CXR:Small airspace opacity in the left lung base may represent aspiration, atelectasis, and/or pneumonia. Reticulonodular opacities are again seen favoring the upper lobes which may represent pneumoconioses. Normal Procalcitonin Blood Cx: Negative to date Continue ceftriaxone and doxycycline. Starting well on room air Plan to be Transferred to [facility] today Pulmonary Nodules Also noted on prior imaging Follow-up with Pulmonology as outpatient (2) Hypokalemia: Plan: Hypokalemia Hypophosphatemia Replete electrolytes as needed (3) Small bowel obstruction, partial: Plan: CT abdomen pelvis on admission reported nodular thickening of mid to distal appendix, equivocal periappendiceal stranding. However, patient does not have any abdominal tenderness. Appendicitis is unlikely. CT also reported mild dilatation of proximal jejunum with decompressed distal small bowel and low-grade partial SBO cannot be excluded. Appreciate surgery input Currently having bowel movements Advanced to regular diet Had BMs Advised to follow-up with surgery as outpatient for further evaluation of appendix Diarrhea C. difficile toxin negative Monitor (4) Coronary atherosclerosis of [place] coronary vessel: Plan: Stable Continue asa 81 mg daily, metoprolol succinate 12.5 mg (5) HLD (hyperlipidemia): Plan: Continue rosuvastatin (6) Allergic rhinitis: Plan: - Continue home meds Plan: Continue cilostazol for PVD Continue Flomax for BPH DVT Px: Heparin SQ Admission and Anticipated Discharge Date Admission Date: July 05, 2021 Subjective Patient is seen and examined at bedside States having multiple episodes of diarrhea Plan to be transferred to [facility] today States having minimal abdominal discomfort with BMs Cough better Offers no other complaints Denies any chest pain, shortness of breath, dizziness Review of Systems Review of Systems: All systems reviewed & are unremarkable except as noted in Subjective Physical Exam Physical Exam: Physical Exam: Vitals signs as noted above General Appearance:Moderately built and nourished, no apparent distress Head: normocephalic, Atraumatic Eyes: normal inspection, EOMI, PERRL Neck: supple, Trachea midline Respiratory/Chest: Decreased breath sounds, CTA, No accessory muscle use Cardiovascular: S1, S2, No murmur Abdomen/GI:Soft, Non tender, mildly distended, Bowel sounds present Extremities/Musculoskeletal:normal inspection, no edema Neurologic/Psych:grossly no focal neurological deficits Skin: normal color, warm Results & Data Results & Data ([facility]) Vital Signs (Past 12 Hours) Vital Signs Temp Pulse Resp BP BP Pulse Ox 07/08/21 09:26 107 H 144/83 H 07/08/21 07:28 36.7 C 113 H 18 152/86 H 93 Laboratory Results [facility] 07/08/21 08:05 Sodium 138 Potassium 3.8 D Chloride 105 Carbon Dioxide 18 L BUN 11 Creatinine 1.44 H Glucose 150 H Calcium 9.3
--- NOTE | 2021-07-08 14:02 | Discharge Summary ---
Date of Service July 08, 2021 Admission HPI Per Admitting Provider This is a 76 yo M with PMHx of HLD, Peripheral vascular disease, allergic rhinitis, BPH, who presents with flu like symptoms for the past 3 days, including cough, yellow sputum, and worsening shortness of breath. He denies any chest pain. He admits to having fever, chills and sweats the past 3 days, along with weakness, fatigue, body aches and pains. His appetite is poor, and diet consists of chicken noodle and toast recently, he denies any issues with bowel habits. His last BM was 3 days ago, and feels his abdomen is slightly more distended today. He denies abdominal pain, nausea or vomiting. He only noticed abdominal pain once team here in the ER and the hospital started pressing on his abdomen, but it is mild. No known sick contacts, no consumption of raw or undercooked foods. He has chronic back pain and leg pain and uses hydrocodone/acetaminophen for this 4 times daily, but missed all his other medications. He denies any other complaints. Admission Exam Per Admitting Provider Physical Exam Physical Exam: General: awake, alert, no apparent distress Head: Normocephalic, atraumatic ENT: PERRL, EOMI, no pharyngeal exudate, mucous membranes moist Chest: Clear to auscultation, on room air, no adventitious breath sounds Cardiac: Regular rate and rhythm, no murmur, no JVD, normal peripheral pulses, good capillary refill Abdominal: NABS x 4 quadrants, soft, + slightly distended, + large mid abdominal hernia, minimally tender to deep palpation in the RLQ, no rebound or guarding Extremities: Normal inspection, no peripheral edema or erythema, calfs nontender to palpation Psych: Normal mood and affect Neuro: AAO x 3, strength intact bilaterally and rated 5/5, no motor deficits, speech is clear, no peripheral sensory deficits Principal Diagnosis Left Lung Pneumonia Hypokalemia Hypophosphatemia Partial Small bowel obstruction--Resolved Nodular thickening of Appendix Pulmonary Nodules Discharge Data Allergies Allergy/AdvReac Type Severity Reaction Status Date / Time gabapentin Allergy Unknown Unknown Unverified 07/05/21 09:50 duloxetine AdvReac Intermediate Insomnia Unverified 07/05/21 09:50 oxycodone AdvReac Intermediate Abdominal Unverified 07/05/21 09:50 Discomfort, Vomiting, Headache Consultations 07/05/21 12:45 ED Decision to Admit Stat 07/05/21 15:01 Consult General Surgery Routine Ordered Studies 07/05/21 09:41 CT abd pelvis IV con only Stat Hospital Course (1) SOB (shortness of breath): Left Lung Pneumonia CXR:Small airspace opacity in the left lung base may represent aspiration, atelectasis, and/or pneumonia. Reticulonodular opacities are again seen favoring the upper lobes which may represent pneumoconioses. Normal Procalcitonin Blood Cx: Negative to date Continue ceftriaxone and doxycycline. Starting well on room air Plan to be Transferred to [facility] today Pulmonary Nodules Also noted on prior imaging Follow-up with Pulmonology as outpatient (2) Hypokalemia: Hypokalemia Hypophosphatemia Replete electrolytes as needed (3) Small bowel obstruction, partial: CT abdomen pelvis on admission reported nodular thickening of mid to distal appendix, equivocal periappendiceal stranding. However, patient does not have any abdominal tenderness. Appendicitis is unlikely. CT also reported mild dilatation of proximal jejunum with decompressed distal small bowel and low-grade partial SBO cannot be excluded. Appreciate surgery input Currently having bowel movements Advanced to regular diet Had BMs Advised to follow-up with surgery as outpatient for further evaluation of appendix Diarrhea C. difficile toxin negative Monitor (4) Coronary atherosclerosis of [place] coronary vessel: Stable Continue asa 81 mg daily, metoprolol succinate 12.5 mg (5) HLD (hyperlipidemia): Continue rosuvastatin (6) Allergic rhinitis: - Continue home meds Continue cilostazol for PVD Continue Flomax for BPH DVT Px: Heparin SQ Total Time Total Time Spent Total Time Spent (In Minutes): 45 minutes Discharge Plan Discharge Items Patient Disposition: Transfer [facility] Reason For Visit: ABDOMINAL PAIN, HYPOKALEMIA Discharge Diagnosis: Left Lung Pneumonia Hypokalemia Hypophosphatemia Partial Small bowel obstruction--Resolved Nodular thickening of Appendix Pulmonary Nodules Activity: Per Instructions section Exercise/Sports: Gradually increase as tolerated Non-emergency contact: Primary Care Provider and Surgeon Call non-emergency contact if: you have any medication questions, your symptoms worsen, your pain is concerning for you and you have a fever Follow-up/Referrals: [facility] [Primary Care Provider] - Diet: Heart Healthy Addtl Attending Provider Instructions: Follow up with your physician at [facility] for further management Follow up with your Surgeon Dr.Robert Hutchison for further evaluation of your Appendix --You are noted to have lung Nodules on Chest X ray. Discuss with your [employer] Filler And [employer]er for further evaluation --Complete the antibiotic course of Pneumonia Seek immediate medical attention if your symptoms reoccur or worsen Please take all medications as instructed on discharge list below. Please call if you have any questions or problems. You can reach a [facility] hospitalist on duty at [facility] 24 hours a day by calling [phone] Pending Studies at Discharge: Yes Studies:: Blood Cultures Stand-Alone Forms: My [facility] Skilled Items Patient informed of condition?: Yes DNR: No Discharge Level of Care: Other Communicable Disease: No Discharge Prognosis: Stable Lines: Peripheral IV Urinary Catheter: No Medications and DC Order Prescriptions: New ceftriaxone 2 gram recon soln 2 g IV DAILY Qty: 1 RF: 0 Advanced Probiotic 625 mg (10 billion cell) Capsule 2 cap PO DAILY Qty: 0 RF: 0 doxycycline hyclate 100 mg Capsule 100 mg PO BID Qty: 0 RF: 0 Continued multivitamin Tablet 1 tab PO QAM RF: 0 buspirone 5 mg Tablet 5 mg PO BID RF: 0 cilostazol 100 mg Tablet 100 mg PO BID RF: 0 acetaminophen 325 mg Tablet 650 mg PO TID PRN (Reason: Pain) RF: 0 magnesium oxide 420 mg Tablet 420 mg PO DAILY RF: 0 theophylline 400 mg Tablet Extended Release 24 Hr 400 mg PO DAILY RF: 0 amlodipine 2.5 mg Tablet 2.5 mg PO DAILY RF: 0 hydrocodone-acetaminophen 10-325 mg Tablet 1 tab PO Q6H PRN (Reason: Pain) RF: 0 aspirin 81 mg Tablet,Delayed Release (Dr/Ec) 81 mg PO DAILY RF: 0 pantoprazole 20 mg Tablet,Delayed Release (Dr/Ec) 20 mg PO DAILY RF: 0 tamsulosin 0.4 mg Capsule 0.4 mg PO HS RF: 0 mirtazapine 30 mg Tablet 15 mg PO HS RF: 0 metoprolol succinate 25 mg Tablet Extended Release 24 Hr 12.5 mg PO DAILY RF: 0 albuterol sulfate 90 mcg/actuation Hfa Aerosol Inhaler 1 inh INHALATION QID PRN (Reason: Shortness Of Breath) RF: 0 rosuvastatin 40 mg Tablet 40 mg PO DAILY RF: 0 pregabalin 75 mg Capsule 75 mg PO BID RF: 0 pregabalin 150 mg Capsule 150 mg PO BID RF: 0 budesonide-formoterol 160-4.5 mcg/actuation Hfa Aerosol Inhaler 2 puff INHALATION BID RF: 0 diclofenac sodium 1 % Gel 2 g TOPICAL BID PRN (Reason: Pain) RF: 0 tiotropium bromide 2.5 mcg/actuation Mist 2 inh INHALATION QAM RF: 0 Flomax 5 mg 5 mg PO DAILY RF: 0 Discharge Orders: Discharge Order (Routine); Ordered 07/08/21 Ordered By: Kuldip Urbano Admission Data Admit Date/Time: 07/05/21 13:05 Attending Provider: Kuldip Urbano Admit Provider: Gwen Lucia I. Primary Care Provider: [facility] Other Providers: Gwen Lucia I. ; Jac Hutchison Other Interventions: Discharge Summary Assessment (RN) Last Done: 07/08/21 11:36
== END 2021-07-08 15:00 | DRG 194 ==
LOC: ED 09:01 → 3W 13:05 → SUATTDRO 13:05 → 3W 14:05

== ENCOUNTER 2023-05-04 12:24 | Inpatient (IN) ==
[2023-05-04] MEDS: SODIUM CHLORIDE 0.9% 500 ML IV ONE (13:33)
--- NOTE | 2023-05-04 13:36 | Emergency Department Note ---
History of Present Illness General Chief complaint: Leg Injury/Pain Time Seen by Provider: 05/04/23 13:01 History of Present Illness 78-year-old male with past medical history significant for lumbar disease status postlaminectomy, CAD, PAD, hypertension, hyperlipidemia, COPD who presents to the emergency department for evaluation of left leg numbness. Patient states he developed numbness in his left lower leg around 10 PM last evening. He states he was sleeping and attempted to get up to go to the bathroom and was unable to secondary to the numbness. He denies any pain in the leg, discoloration, or weakness of the leg. Denies recent falls or injury. He does report a history of back surgery in [address] Armas and has a pain stimulator. He is not currently experiencing any back pain at this time however. He denies associated upper extremity numbness/tingling or weakness, facial droop, slurred speech, amaurosis fugax, changes in his right lower extremity. Reports a history of fem-fem bypass on the right leg by Dr. Parra 25 years ago. Patient is accompanied by his brother who does state he seemed to be acting confused this morning talking about a family member that was . He is on baby aspirin otherwise no blood thinners. He took hydrocodone and gabapentin prior to arrival. Denies fever/chills, nausea/vomiting, chest pain, shortness of breath, abdominal pain. Home Medications Medication Instructions Recorded Confirmed Type albuterol sulfate 90 mcg/actuation 1 inh inhalation QID PRN Shortness 07/05/21 05/04/23 History aerosol inhaler Of Breath aspirin 81 mg tablet,delayed 81 mg PO QAM 07/05/21 05/04/23 History release buspirone 5 mg tablet 5 mg PO BID 07/05/21 05/04/23 History cilostazol 100 mg tablet 100 mg PO BID 07/05/21 05/04/23 History diclofenac sodium 1 % topical gel 2 g topical BID PRN Pain 07/05/21 05/04/23 History hydrocodone 10 mg-acetaminophen 1 tab PO Q6H PRN Pain 07/05/21 05/04/23 History 325 mg tablet metoprolol succinate 25 mg 12.5 mg PO QAM 07/05/21 05/04/23 History tablet,extended release 24 hr mirtazapine 30 mg tablet 30 mg PO HS 07/05/21 05/04/23 History multivitamin 1 tab PO QAM 07/05/21 05/04/23 History pantoprazole 20 mg tablet,delayed 40 mg PO BID 07/05/21 05/04/23 History release pregabalin 150 mg capsule 150 mg PO BID 07/05/21 05/04/23 History rosuvastatin 40 mg tablet 40 mg PO HS 07/05/21 05/04/23 History tamsulosin 0.4 mg capsule 0.4 mg PO HS 07/05/21 05/04/23 History theophylline 400 mg 400 mg PO HS 07/05/21 05/04/23 History tablet,extended release 24 hr tiotropium bromide 2.5 2 inh inhalation QAM 07/05/21 05/04/23 History mcg/actuation mist for inhalation ascorbic acid (vitamin C) 1,000 mg 1 g PO QAM 04/19/22 05/04/23 History tablet (Vitamin C) cyanocobalamin (vitamin B-12) 1,000 mcg PO QAM 04/19/22 05/04/23 History 1,000 mcg tablet (Vitamin B-12) lisinopril 5 mg tablet 5 mg PO HS 04/19/22 05/04/23 History amlodipine 5 mg tablet 5 mg PO DAILY 05/04/23 05/04/23 History ezetimibe 10 mg tablet 10 mg PO DAILY 05/04/23 05/04/23 History fluticasone propionate 50 1 spray intranasal BID PRN Nasal 05/04/23 05/04/23 History mcg/actuation nasal Congestion spray,suspension hydroxyzine HCl 25 mg tablet 25 mg PO HS PRN Insomnia 05/04/23 05/04/23 History metformin 500 mg tablet 500 mg PO BID 05/04/23 05/04/23 History Allergies Allergy/AdvReac Type Severity Reaction Status Date / Time gabapentin Allergy Unknown Unknown Verified 04/25/22 11:43 duloxetine AdvReac Intermediate Insomnia Verified 04/25/22 11:43 oxycodone AdvReac Intermediate Abdominal Verified 04/25/22 11:43 Discomfort, Vomiting, Headache Past Med/Surg History Medical History (Updated 05/04/23 @ 20:28 by Faye Yoder PA-C) Diabetes mellitus, type II Hypertension Chronic back pain BPH (benign prostatic hyperplasia) PVD (peripheral vascular disease) Prediabetes diet controlled Hearing deficit Depression History of COVID-19 diagnosed 02/2021--mild symptoms, no symptoms now Chronic obstructive pulmonary disease inhalers daily/prn Lumbosacral radiculopathy Idiopathic polyneuropathy HLD (hyperlipidemia) Coronary atherosclerosis of [place] coronary vessel Surgical History History of femoropopliteal bypass right total---Dr. Parra @ [facility] 06/1998 History of colonoscopy History of tooth extraction all teeth removed History of sinus surgery Family History Other No family history of adverse response to anesthesia Social History Smoking Status: Former smoker Second Hand Exposure: No; Do You Dip or Chew Tobacco: No; Hx Alcohol Use: No Hx Substance Use: No Preferred Language: Malian Communication Ability: Effective Mds Nurse Required: No Beliefs That Will Affect Care: None marital status: / Current Living Situation: Alone How many Children do You have: 2 Feels Safe at Home: Yes Assistive Devices: Denture - Upper, Denture - Lower, Glasses and Hearing Aid - Bilateral Physical Exam Vital Signs Vital Signs - 24 hr 05/04/23 12:28 05/04/23 13:04 05/04/23 13:30 Pulse Rate 110 H 100 H Pulse Rate [Left Apical] 100 H Pulse Rate from SpO2 Sensor Respiratory Rate 16 22 18 Respiratory Effort / Characteristics Non-Labored Spontaneous Respiratory Depth Normal Normal Blood Pressure 120/59 L 149/82 H Blood Pressure [Right Arm] 148/57 H Blood Pressure Mean 79 104 Blood Pressure Mean [Right Arm] 87 Pulse Oximetry 96 97 94 Oxygen Delivery Method Nasal Cannula Room Air Room Air Oxygen Flow Rate 2 Sepsis Recent Fever Within 48 Hours No Sepsis New/Unexplained Change in Mental Status No Sepsis Action Taken by Nursing No Action Required 05/04/23 14:00 05/04/23 15:29 05/04/23 15:30 Pulse Rate 101 H 99 H 94 H Pulse Rate [Left Apical] Pulse Rate from SpO2 Sensor 94 H Respiratory Rate 18 18 17 Respiratory Effort / Characteristics Respiratory Depth Blood Pressure 163/76 H 149/63 H 142/56 H Blood Pressure [Right Arm] Blood Pressure Mean 105 91 84 Blood Pressure Mean [Right Arm] Pulse Oximetry 95 94 Oxygen Delivery Method Room Air Oxygen Flow Rate Sepsis Recent Fever Within 48 Hours Sepsis New/Unexplained Change in Mental Status Sepsis Action Taken by Nursing 05/04/23 16:00 05/04/23 17:01 05/04/23 17:30 Pulse Rate 96 H 107 H Pulse Rate [Left Apical] 103 H Pulse Rate from SpO2 Sensor 96 H Respiratory Rate 19 24 25 H Respiratory Effort / Characteristics Respiratory Depth Blood Pressure Blood Pressure [Right Arm] 151/72 H Blood Pressure Mean Blood Pressure Mean [Right Arm] 98 Pulse Oximetry 93 96 95 Oxygen Delivery Method Room Air Room Air Oxygen Flow Rate Sepsis Recent Fever Within 48 Hours Sepsis New/Unexplained Change in Mental Status Sepsis Action Taken by Nursing 05/04/23 17:30 Pulse Rate Pulse Rate [Left Apical] Pulse Rate from SpO2 Sensor Respiratory Rate Respiratory Effort / Characteristics Respiratory Depth Blood Pressure 166/71 H Blood Pressure [Right Arm] Blood Pressure Mean 112 Blood Pressure Mean [Right Arm] Pulse Oximetry Oxygen Delivery Method Oxygen Flow Rate Sepsis Recent Fever Within 48 Hours Sepsis New/Unexplained Change in Mental Status Sepsis Action Taken by Nursing Constitutional: alert and oriented x3. no acute distress. nontoxic HEENT: normocephalic, atraumatic. normal conjunctiva.PERRLA. EOM's grossly intact. TMs pearly rivas without effusion. Pharynx pink without exudate. Tonsils nonenlarged. Mucus membranes moist Neck: neck is supple, nontender. Respiratory: lungs are clear to auscultation without wheezes, rhonchi, or rales bilaterally. equal chest rise. normal respiratory effort, no accessory muscle use. Cardiovascular: normal heart sounds without murmur. regular rate and rhythm. GI: abdomen is soft, nontender. No palpable masses. No rebound tenderness or guarding. No CVA tenderness MSK: no tenderness LLE. No discoloration, cyanosis, erythema, warmth, wounds LLE. Able to wiggle toes, dorsiflex/plantar flex without difficulty. No midline lumbar spinal tenderness. Peripheral vascular: lower extremities warm and well perfused. Palpable R pedal pulses. Nonpalpable L pedal pulses but multiphasic doppler signals. Brisk capillary refill bilaterally. Sensation intact BLE, mildly reduce L compared to R Neuro: without focal neuro deficits. GCS 15. CNII-XII intact. Speech clear, tongue midline, without facial droop. Strength equal throughout all for extremities. Normal cerebellar function tests. Psych:appropriate mood and affect. Course Administered Medications Heparin Sodium/Dextrose (Heparin Sodium/Dextrose) 25,000 units in 500 mls @ 27 mls/hr IV .[id number] [facility]; Protocol Stop: 06/03/23 17:44 Last Admin: 05/04/23 17:56 Dose: 1,350 units/hr, 27 mls/hr Documented By: KARL Co-signed By: SIM Ceftriaxone Sodium 2,000 mg/ (Dextrose) 70 mls @ 100 mls/hr IV Q24H [facility]; Protocol Stop: 05/11/23 18:59 Last Admin: 05/04/23 19:12 Dose: 100 mls/hr Documented By: NIMO Sodium Chloride (Nss) 1,000 mls @ 100 mls/hr IV .Q10H [facility] Stop: 06/03/23 18:44 Last Admin: 05/04/23 19:12 Dose: 100 mls/hr Documented By: NIMO Discontinued Medications Heparin Sodium (Porcine) (Heparin Sod (Porcine) 1000 Unit/Ml) 6,000 units IV NOW ONE Stop: 05/04/23 17:46 Last Admin: 05/04/23 17:56 Dose: 5,000 units Documented By: KARL Co-signed By: SIM Heparin Sodium (Porcine) (Heparin Sod (Porcine) 1000 Unit/Ml) Confirm Administered Dose 1,000 units .ROUTE .STK-MED ONE Stop: 05/04/23 17:31 Last Admin: 05/04/23 17:47 Dose: Not Given Documented By: KARL Heparin Sodium/Dextrose (Heparin 99901 Unit/500 Ml D5w) Confirm Administered Dose 25,000 units IV .STK-MED ONE Stop: 05/04/23 17:31 Last Admin: 05/04/23 17:47 Dose: Not Given Documented By: KARL Sodium Chloride (Nss) 500 mls @ 999 mls/hr IV .Q31M ONE Stop: 05/04/23 13:56 Last Infusion: 05/04/23 14:32 Dose: Infused Documented By: Admin: 05/04/23 13:33 Dose: 999 mls/hr Documented By: LOWELL Ioversol (Optiray 320 125ml) 117 ml IV ONCE ONE Stop: 05/04/23 19:53 Last Admin: 05/04/23 19:52 Dose: 117 ml Documented By: [facility] Medical Decision Making Differential Diagnosis CVA, acute arterial ischemia, DVT, lumbar disc herniation, lumbar radiculopathy, cauda equina syndrome, vitamin deficiency, peripheral neuropathy, as well as other pathologies Laboratory Data Attestation: I reviewed the patient's lab results. 05/04/23 13:00 05/04/23 13:00 Lab Results 05/04/23 05/04/23 Range/Units 13:00 17:00 WBC 9.00 (4.8-10.8) K/ul RBC 4.02 L (4.70-6.10) M/uL Hgb 11.7 L (14.0-18.0) g/dl Hct 34.7 L (42.0-52.0) % MCV 86.3 (80.0-100.0) fL MCH 29.1 (25.0-34.0) pg MCHC 33.7 (32.0-36.0) g/dL RDW Std Deviation 47.8 H (36.4-46.3) fL RDW Coeff of Chauncey 15.2 H (11.5-14.5) % Plt Count 101 L (130-400) K/uL MPV 10.4 (9.4-12.4) fL PT 11.4 (9.0-12.0) Seconds INR 1.0 (0.9-1.1) APTT 33 H (21-31) Seconds PTT Ratio 1.2 Sodium 139 (136-145) mmol/L Potassium 4.0 (3.5-5.1) mmol/L Chloride 109 H (98-107) mmol/L Carbon Dioxide 21 (21-32) mmol/L Anion Gap 9 (3-11) BUN 19 (6-23) mg/dl Creatinine 1.54 H (0.6-1.4) mg/dl Est Cr Clr Drug Dosing Not Reportable Est GFR ( Amer) 49.7 ml/min Est GFR (Non-Af Amer) 42.9 ml/min BUN/Creatinine Ratio 12.3 (10-20) Glucose 115 H (70-99(Fasting)) mg/dl Calcium 9.4 (8.6-10.3) mg/dl Magnesium 1.6 L (1.7-2.4) mg/dl Total Bilirubin 1.1 H (0.2-1.0) mg/dl AST 75 H (13-39) U/L ALT 24 (7-52) U/L Alkaline Phosphatase 72 (34-104) U/L Troponin I High Sens 219.1 H* 254.7 H* (0-20) pg/ml Total Protein 7.4 (6.0-8.3) gm/dl Albumin 4.1 (3.4-5.0) gm/dl Globulin 3.3 (2.5-4.0) gm/dl Albumin/Globulin Ratio 1.2 (0.9-2) Procalcitonin 25.40 H (0-0.5) ng/ml Imaging Data Radiologist's Impression: Chest X-Ray 05/04/23 12:35 XR chest 1V portable CLINICAL HISTORY: stroke alert COMPARISON STUDY: Chest radiograph July 06, 2021. FINDINGS: There are low lung volumes. There is no pneumothorax or pleural effusion. Lower lung predominant reticulonodular interstitial thickening is present. Left hilar prominence is likely due to pulmonary vessels. Cardiomegaly is unchanged. IMPRESSION: Lower lung predominant reticulonodular interstitial thickening. This favors an infectious process. Pulmonary edema could appear similar. Radiographic follow-up to ensure resolution is recommended. ACT 112: Negative or not required by law. Electronically signed by: Jaylen Mcdaniel M.D. 05/04/2023 3:[address] 05/04/23 13:22 CT SCAN OF THE BRAIN WITHOUT IV CONTRAST CLINICAL HISTORY: Left leg numbness. COMPARISON STUDY: No priors. TECHNIQUE: Unenhanced axial CT scan of the brain is performed from the vertex to the skull base. A dose lowering technique was utilized adhering to the principles of ALARA. FINDINGS: Brain parenchyma: There is age-related involutional change noting mild subcortical and periventricular microangiopathic disease. There is no hemorrhage, mass effect, or evidence of acute territorial ischemia by CT criteria. Rivas-white matter differentiation is preserved. No extra-axial fluid collection is seen. Ventricles, sulci, cisterns: Prominent secondary to involutional change. Intracranial vasculature: There is atherosclerotic calcification of the cavernous carotid and vertebral arteries. Calvarium: Unremarkable. Sinuses and mastoids: There is evidence of previous paranasal sinus surgery. There is subtotal opacification of the right maxillary antrum. Mild mucosal thickening is noted in the right frontal sinus, and there is trace mucosal thickening within the ethmoid resection cavity. The mastoid air cells are well pneumatized. Orbits: The bony orbits are grossly intact. IMPRESSION: There is no hemorrhage, mass effect, or evidence of acute territorial ischemia by CT criteria. ACT 112: Negative or not required by law. Electronically signed by: Bashir Peguero M.D. 05/04/2023 3:37 PM Duplex Scan Lower Extremity Artery 05/04/23 13:26 US arterial duplex left lower extremity CLINICAL HISTORY: L leg numbness h/o right lower extremity bypass COMPARISON STUDY: None. FINDINGS: Calcified plaque within the mid left superficial femoral artery with associated elevated peak systolic velocity of 205 cm/s. This is consistent with an area of hemodynamically significant stenosis. There are normal biphasic waveforms and velocities seen throughout the remaining left lower extremity arterial system. No evidence for arterial occlusion. IMPRESSION: 1. Focal area of hemodynamically significant stenosis within the mid left superficial femoral artery. 2. No evidence for arterial occlusion within the left lower extremity. ACT 112: Negative or not required by law. Electronically signed by: Kannan Gutierrez M.D. 05/04/2023 3:21 PM Abdomen/Pelvis CT 05/04/23 14:[address] WITHOUT CONTRAST CT DOSE: 2037.69 mGy.cm HISTORY: elevated LFT/bili, eval lumbar spine LL numbness TECHNIQUE: Multiaxial CT images of the abdomen and pelvis were performed without contrast. A dose lowering technique was utilized adhering to the principles of ALARA. COMPARISON STUDY: Abdomen and pelvis CT 07/05/2021. FINDINGS: Emphysema noted at the lung bases. There are patchy groundglass densities within the lung bases most pronounced on the right. This may represent a pneumonia. No pneumoperitoneum. No pneumatosis. No acute fractures identified. Spinal stimulator leads terminate at the T9 level. The L3-L4 vertebral bodies are fused. There is a femorofemoral bypass graft again noted. 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 Hepatic steatosis. The unenhanced gallbladder, pancreas, spleen, and adrenal glands are unremarkable. Stable bilateral renal hypodense lesions. These are incompletely characterized on this noncontrast study but statistically represent cysts. No renal or ureteral calculi. No hydronephrosis. Calcified plaque within the normal caliber abdominal aorta. No retroperitoneal or pelvic lymphadenopathy. No pelvic free fluid. The bladder is moderately distended. No bladder wall thickening. Suboptimal evaluation for bowel pathology due to the lack of intravenous and oral contrast. However, there is no definite bowel wall thickening or obstruction. Colonic diverticulosis. No evidence for acute diverticulitis. Bulbous appearance to the tip of the appendix best seen on image 231 measuring 9 mm. This previously measured 13 mm. No evidence for acute appendicitis. IMPRESSION: 1. No renal or ureteral stones. No hydronephrosis. 2. No definite bowel wall thickening or obstruction. 3. Colonic diverticulosis. No evidence for acute diverticulitis. 4. Patchy bibasilar densities have progressed and may represent a pneumonia. 5. Bulbous appearance to the tip the appendix which has slightly improved. No evidence for acute appendicitis. An underlying lesion at the appendiceal tip remains the diagnosis of exclusion. Nonemergent surgical consultation recommended. 6. Additional findings as described above. ACT 112: Negative or not required by law. Electronically signed by: Kannan Gutierrez M.D. 05/04/2023 3:47 PM Knee X-Ray 05/04/23 17:19 LEFT KNEE 2 VIEWS CLINICAL HISTORY: Fall. Left knee pain. FINDINGS: AP and crosstable lateral views of the left knee are obtained. No prior studies are available for comparison at the time of dictation. The skeletal structures are osteopenic. No fracture is seen. There is minimal degenerative joint space narrowing. Patellar enthesophytes are observed. No joint effusion is seen. A calcified fabella is incidentally noted. There is mild prepatellar soft tissue swelling. Mild atherosclerotic calcification is noted in the popliteal artery. IMPRESSION: No acute bony abnormality is identified. Electronically signed by: Bashir Peguero M.D. 05/04/2023 7:33 PM Lumbar Spine X-Ray 05/04/23 17:49 LUMBAR SPINE 3 VIEWS CLINICAL HISTORY: Left leg numbness. FINDINGS: 3 views of the lumbar spine are compared to study dated 09/07/2015. The skeletal structures are osteopenic. There is no radiographic evidence of fracture or malalignment. Vertebral body height and alignment are maintained throughout the lumbar spine. Large anterior and lateral marginal osteophytes are seen throughout. The transverse and spinous processes appear intact. Facet arthropathy is seen in the mid to lower lumbar region. There is moderate to severe disc space narrowing at L3-L4. Moderate narrowing is seen at L4-L5 and L5-S1. Posterior disc occupy complexes are seen at these levels. The visualized bony pelvis appears intact. Degenerative sclerosis is noted in the sacroiliac joints. A neurostimulator device projects over the left lower quadrant, with leads entering the central spinal canal in the thoracic region. There is advanced atherosclerotic calcification of the abdominal aorta. No bowel obstruction is seen. IMPRESSION: 1. No acute bony abnormality is seen involving the lumbar spine. 2. Osteopenia and spondylotic change as above. Electronically signed by: Bashir Peguero M.D. 05/04/2023 7:31 PM MDM Narrative 78-year-old male who presents to the emergency department for evaluation of left leg numbness. Reviewed pertinent visits and past medical history performed. Vital signs in ED demonstrate mild tachycardia otherwise within normal limits. Patient was seen and evaluated as above. IV access was established and labs and imaging were obtained. CBC without leukocytosis or acute anemia. CMP without significant electrolyte abnormalities. Renal function appears at baseline, creatinine 1.5. AST elevated at 75. Remaining LFTs and total bilirubin unremarkable. High-sensitivity troponin significantly elevated at 219. EKG per my interpretation demonstrates sinus tachycardia at a rate of 104 bpm with intermittent PVCs. No evidence for ischemic changes. This was compared to EKG at 04/01/2022 and no significant changes noted. Patient is not currently having any chest pain. CXR without acute findings. Evidence of lower lung reticulonodular and interstitial thickening which was previously seen on 06/2021, infectious versus pulmonary edema. Head CT performed given left lower extremity numbness and unremarkable. A CT abdomen/pelvis without contrast was also performed given minor transaminitis to evaluate for intra-abdominal as well as lumbar pathology. No acute pathology noted. Lumbar spine unremarkable. There is redemonstration of an appendix mass which was previously noted on 06/2021. Arterial duplex of the left lower extremity was also performed and demonstrates mid SFA stenosis. Patient was medicated with 500 mL IV fluids. On exam, patient is well-appearing in no acute distress. He is neurologically intact without focal deficits. He does have sensation in the left lower extremity but reports decrease when compared to the right. Strength intact. Palpable right pedal pulses, I am unable to appreciate a palpable pulse on the left however has multiphasic signals with Doppler. Foot is otherwise warm and well-perfused with brisk capillary refill. No other neurological deficits noted. Lungs clear without adventitious sounds. Abdominal exam benign. Patient was reassessed on multiple occasions throughout ED stay and remained stable without new concerns. They were updated on all exam findings and test results. Etiology of left lower extremity numbness not entirely clear but could be secondary to CVA versus lumbar radiculopathy. I do not suspect acute arterial ischemia given exam findings. At this time, I do feel patient would benefit from admission to the hospital for further workup and evaluation to rule out stroke as well as an elevated troponin. They were agreeable to plan. Case was discussed with hospitalist, Faye Martin, who graciously accepted patient to their service for continued workup. He was admitted in stable condition. Case was discussed with ED attending, Dr. Manrique, who agrees with workup and treatment plan Impression & Plan Left leg numbness, Elevated troponin Discharge Plan Visit Data Chief Complaint: Leg Injury/Pain ED Provider: Jarad Manrique ED Midlevel Provider: Faye Yoder Discharge Problem: Left leg numbness, Elevated troponin Patient Disposition: Admitted As Inpatient Discharge Instructions Interventions: ED Discharge Assessment Last Done: 05/04/23 19:25
[2023-05-04 13:56] LABS: Alanine Aminotransferase 24 U/L (7-52); Albumin Globulin Ratio 1.2 (0.9-2); Albumin Level 4.1 gm/dl (3.4-5.0); Alkaline Phosphatase 72 U/L (34-104); Anion Gap 9 (3-11); Aspartate Aminotransferase 75 U/L (13-39); BUN Creatinine Ratio 12.3 (10-20); Bilirubin,Total 1.1 mg/dl (0.2-1.0); Blood Urea Nitrogen 19 mg/dl (6-23); Calcium 9.4 mg/dl (8.6-10.3); Carbon Dioxide 21 mmol/L (21-32); Chloride 109 mmol/L (98-107); Est GFR (African American) 49.7 ml/min; Est GFR (Non-African American) 42.9 ml/min; Globulin 3.3 gm/dl (2.5-4.0); Glucose 115 mg/dl (70-99(Fasting)); Magnesium 1.6 mg/dl (1.7-2.4); Sodium 139 mmol/L (136-145); Total Protein 7.4 gm/dl (6.0-8.3)
[2023-05-04 13:58] LABS: Hematocrit (blood only) 34.7 % (42.0-52.0); Hemoglobin 11.7 g/dl (14.0-18.0); Mean Corpuscular Hemoglobin 29.1 pg (25.0-34.0); Mean Corpuscular Hgb Conc 33.7 g/dL (32.0-36.0); Mean Corpuscular Volume 86.3 fL (80.0-100.0); Mean Platelet Volume 10.4 fL (9.4-12.4); Platelet Count 101 K/uL (130-400); RDW Coefficient of Variation 15.2 % (11.5-14.5); RDW Standard Deviation 47.8 fL (36.4-46.3); Red Blood Count 4.02 M/uL (4.70-6.10)
[2023-05-04 14:08] LABS: Partial Thromboplastin Ratio 1.2; Partial Thromboplastin Time 33 Seconds (21-31); Prothrombin Time 11.4 Seconds (9.0-12.0)
--- NOTE | 2023-05-04 15:22 | Ultrasound Report ---
US arterial duplex left lower extremity CLINICAL HISTORY: L leg numbness h/o right lower extremity bypass COMPARISON STUDY: None. FINDINGS: Calcified plaque within the mid left superficial femoral artery with associated elevated pe ak systolic velocity of 205 cm/s. This is consistent with an area of hemodynamically significant sten osis. There are normal biphasic waveforms and velocities seen throughout the remaining left lower ext remity arterial system. No evidence for arterial occlusion. IMPRESSION: 1. Focal area of hemodynamically significant stenosis within the mid left superficial femoral artery. 2. No evidence for arterial occlusion within the left lower extremity. ACT 112: Negative or not required by law. Electronically signed by: Kannan Gutierrez M.D. 05/04/2023 3:21 PM
--- NOTE | 2023-05-04 15:39 | CT Scan Report ---
CT SCAN OF THE BRAIN WITHOUT IV CONTRAST CLINICAL HISTORY: Left leg numbness. COMPARISON STUDY: No priors. TECHNIQUE: Unenhanced axial CT scan of the brain is performed from the vertex to the skull base. A do se lowering technique was utilized adhering to the principles of ALARA. FINDINGS: Brain parenchyma: There is age-related involutional change noting mild subcortical and periventricula r microangiopathic disease. There is no hemorrhage, mass effect, or evidence of acute territorial isc hemia by CT criteria. Rivas-white matter differentiation is preserved. No extra-axial fluid collection is seen. Ventricles, sulci, cisterns: Prominent secondary to involutional change. Intracranial vasculature: There is atherosclerotic calcification of the cavernous carotid and vertebr al arteries. Calvarium: Unremarkable. Sinuses and mastoids: There is evidence of previous paranasal sinus surgery. There is subtotal opacif ication of the right maxillary antrum. Mild mucosal thickening is noted in the right frontal sinus, a nd there is trace mucosal thickening within the ethmoid resection cavity. The mastoid air cells are w ell pneumatized. Orbits: The bony orbits are grossly intact. IMPRESSION: There is no hemorrhage, mass effect, or evidence of acute territorial ischemia by CT sarah marquez. ACT 112: Negative or not required by law. Electronically signed by: Bashir Peguero M.D. 05/04/2023 3:37 PM
--- NOTE | 2023-05-04 15:44 | XRay Report ---
XR chest 1V portable CLINICAL HISTORY: stroke alert COMPARISON STUDY: Chest radiograph July 06, 2021. FINDINGS: There are low lung volumes. There is no pneumothorax or pleural effusion. Lower lung predom inant reticulonodular interstitial thickening is present. Left hilar prominence is likely due to pulm onary vessels. Cardiomegaly is unchanged. IMPRESSION: Lower lung predominant reticulonodular interstitial thickening. This favors an infectious process. Pulmonary edema could appear similar. Radiographic follow-up to ensure resolution is recomm ended. ACT 112: Negative or not required by law. Electronically signed by: Jaylen Mcdaniel M.D. 05/04/2023 3:43 PM
--- NOTE | 2023-05-04 15:48 | CT Scan Report ---
ABDOMEN AND PELVIS CT WITHOUT CONTRAST CT DOSE: 2037.69 mGy.cm HISTORY: elevated LFT/bili, eval lumbar spine LL numbness TECHNIQUE: Multiaxial CT images of the abdomen and pelvis were performed without contrast. A dose lo wering technique was utilized adhering to the principles of ALARA. COMPARISON STUDY: Abdomen and pelvis CT 07/05/2021. FINDINGS: Emphysema noted at the lung bases. There are patchy groundglass densities within the lung b ases most pronounced on the right. This may represent a pneumonia. No pneumoperitoneum. No pneumatosi s. No acute fractures identified. Spinal stimulator leads terminate at the T9 level. The L3-L4 verteb ral bodies are fused. There is a femorofemoral bypass graft again noted. 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 Hepatic steatosis. The unenhanced gallbladder, pancr eas, spleen, and adrenal glands are unremarkable. Stable bilateral renal hypodense lesions. These are incompletely characterized on this noncontrast study but statistically represent cysts. No renal or ureteral calculi. No hydronephrosis. Calcified plaque within the normal caliber abdominal aorta. No r etroperitoneal or pelvic lymphadenopathy. No pelvic free fluid. The bladder is moderately distended. No bladder wall thickening. Suboptimal evaluation for bowel pathology due to the lack of intravenous and oral contrast. However, there is no definite bowel wall thickening or obstruction. Colonic divert iculosis. No evidence for acute diverticulitis. Bulbous appearance to the tip of the appendix best se en on image 231 measuring 9 mm. This previously measured 13 mm. No evidence for acute appendicitis. IMPRESSION: 1. No renal or ureteral stones. No hydronephrosis. 2. No definite bowel wall thickening or obstruction. 3. Colonic diverticulosis. No evidence for acute diverticulitis. 4. Patchy bibasilar densities have progressed and may represent a pneumonia. 5. Bulbous appearance to the tip the appendix which has slightly improved. No evidence for acute appe ndicitis. An underlying lesion at the appendiceal tip remains the diagnosis of exclusion. Nonemergent surgical consultation recommended. 6. Additional findings as described above. ACT 112: Negative or not required by law. Electronically signed by: Kannan Gutierrez M.D. 05/04/2023 3:47 PM
--- NOTE | 2023-05-04 16:59 | History & Physical Report ---
Date of Service May 04, 2023 Assessment & Plan (1) Paresthesia of left lower extremity: (2) PVD (peripheral vascular disease): (3) Elevated troponin: Plan: This is a 78-year-old male with PMH of peripheral vascular disease, dyslipidemia, BPH, lumbar spine stenosis and other medical problems listed below who presents with new numbness in left lower extremity yesterday. LLE with decreased sensation and increased weakness since yesterday, now noting paresthesias in RLE as well Ddx PVD vs CVA vs lumbar radiculopathy H/o PVD with fem-fem bypass [address] Parra, per patient LLE arterial duplex with focal area of hemodynamically significant stenosis within the mid left superficial femoral artery. No evidence for arterial occlusion within the left lower extremity HS troponin 219 -> 254, no EKG changes or chest pain. Monitor on tele, continue trending trop overnight, 2D echo ordered, repeat EKG in AM, consider cards consult if remains elevated Started on IV heparin. Discussed with Dr. Ulloa - recommends obtaining CTA abd/pelvis to eval for dissection, will see tomorrow Brain MRI ordered for stroke eval but notified MRI needs remote for spinal stimulator - patient's family attempting to locate Fall precautions Continue aspirin, statin, cilostazol (4) Lumbosacral radiculopathy: (5) Chronic back pain: Plan: Significant history of lumbar radiculopathy but lumbar spine XR without acute bony abnormality is seen involving the lumbar spine. There is moderate to severe disc space narrowing at L3-L4. Moderate narrowing is seen at L4-L5 and L5-S1 Continue home pain regimen with hydrocodone-acetaminophen, Lyrica No bowel/bladder dysfunction, strength intact Consider further imaging and ortho spine if differential points more towards lumbar etiology (6) Pneumonia: Plan: Recent RSV infection 3 weeks ago CXR with lower lung predominant reticulonodular interstitial thickening. This favors an infectious process. Pulmonary edema could appear similar. Radiographic follow-up to ensure resolution is recommended Procal elevated at 25 Starting on Rocephin/doxy for CAP coverage, continue home inhalers PRN antitussives (7) Hypertension: Plan: Elevated in setting of likely opioid withdrawal after missed doses today. Given home [place] dose, monitor Continue home amlodipine, lisinopril HS, Toprol (8) Diabetes mellitus, type II: Plan: Obtain a1c in AM Hold home agents SSI while in-patient BSG AC HS (9) Chronic obstructive pulmonary disease: Plan: Chronic, stable. Continue home inhalers (10) Depression: Plan: H/o depression and anxiety. Chronic, stable. Continue Buspar, mirtazapine, hydroxyzine HS PRN (11) BPH (benign prostatic hyperplasia): Plan: Continue Flomax Abnormal CT abd/pelvis Bulbous appearance to the tip the appendix which has slightly improved. No evidence for acute appendicitis. An underlying lesion at the appendiceal tip remains the diagnosis of exclusion. Nonemergent surgical consultation recommended DVT Ppx: IV heparin Code status: CONDITIONAL CODE. YES to CPR/cardiac defibrillation, NO to intubation or artificial airway PCP: [place] Dispo: Admitted to PCU Patient seen in collaboration with Dr. Urbano. Please see addendum. I spent a total of 80 minutes coordinating, documenting, and providing care for this patient excluding time spent in the performance of separately billed services. History of Present Illness Chief Complaint: Leg numbness Primary Care Provider: [facility] This is a 78-year-old male with PMH of peripheral vascular disease, dyslipidemia, BPH, lumbar spine stenosis and other medical problems listed below who presents with new numbness in left lower extremity yesterday. Noticed some numbness and tingling of his left lower leg last evening around 1999 while laying on couch. Got up around 2200 to try to see if he could get rid of the tingling feeling and ran into a coffee table, hitting his R knee and falling down. Denies any head trauma or LOC. LLE has some associated weakness as well which makes walking difficult. Now noticing some tingling in his R leg but denies any weakness. Friend at bedside endorses some confusion this morning when he was on the phone with his son. No facial droop, slurring of speech or weakness of upper extremities. Patient with remote history of RLE fem-fem bypass [address] Parra here. Also with history of chronic back pain with multiple surgeries and last had a spinal stimulator placed by Dr. Armas last year. No F/C, lightheadedness, CP, SOB, N/V, abdominal pain, dysuria, diarrhea or constipation. Had RSV 3 weeks ago and has a residual cough with clear sputum. Decreased PO intake today but felt fine yesterday. Allergies Allergy/AdvReac Type Severity Reaction Status Date / Time gabapentin Allergy Unknown Unknown Verified 04/25/22 11:43 duloxetine AdvReac Intermediate Insomnia Verified 04/25/22 11:43 oxycodone AdvReac Intermediate Abdominal Verified 04/25/22 11:43 Discomfort, Vomiting, Headache Home Medications Medication Instructions Recorded Confirmed Type albuterol sulfate 90 mcg/actuation 1 inh inhalation QID PRN Shortness 07/05/21 05/04/23 History aerosol inhaler Of Breath aspirin 81 mg tablet,delayed 81 mg PO QAM 07/05/21 05/04/23 History release buspirone 5 mg tablet 5 mg PO BID 07/05/21 05/04/23 History cilostazol 100 mg tablet 100 mg PO BID 07/05/21 05/04/23 History diclofenac sodium 1 % topical gel 2 g topical BID PRN Pain 07/05/21 05/04/23 History hydrocodone 10 mg-acetaminophen 1 tab PO Q6H PRN Pain 07/05/21 05/04/23 History 325 mg tablet metoprolol succinate 25 mg 12.5 mg PO QAM 07/05/21 05/04/23 History tablet,extended release 24 hr mirtazapine 30 mg tablet 30 mg PO HS 07/05/21 05/04/23 History multivitamin 1 tab PO QAM 07/05/21 05/04/23 History pantoprazole 20 mg tablet,delayed 40 mg PO BID 07/05/21 05/04/23 History release pregabalin 150 mg capsule 150 mg PO BID 07/05/21 05/04/23 History rosuvastatin 40 mg tablet 40 mg PO HS 07/05/21 05/04/23 History tamsulosin 0.4 mg capsule 0.4 mg PO HS 07/05/21 05/04/23 History theophylline 400 mg 400 mg PO HS 07/05/21 05/04/23 History tablet,extended release 24 hr tiotropium bromide 2.5 2 inh inhalation QAM 07/05/21 05/04/23 History mcg/actuation mist for inhalation ascorbic acid (vitamin C) 1,000 mg 1 g PO QAM 04/19/22 05/04/23 History tablet (Vitamin C) cyanocobalamin (vitamin B-12) 1,000 mcg PO QAM 04/19/22 05/04/23 History 1,000 mcg tablet (Vitamin B-12) lisinopril 5 mg tablet 5 mg PO HS 04/19/22 05/04/23 History amlodipine 5 mg tablet 5 mg PO DAILY 05/04/23 05/04/23 History ezetimibe 10 mg tablet 10 mg PO DAILY 05/04/23 05/04/23 History fluticasone propionate 50 1 spray intranasal BID PRN Nasal 05/04/23 05/04/23 History mcg/actuation nasal Congestion spray,suspension hydroxyzine HCl 25 mg tablet 25 mg PO HS PRN Insomnia 05/04/23 05/04/23 History metformin 500 mg tablet 500 mg PO BID 05/04/23 05/04/23 History Past Med/Surg History Medical History (Updated 05/04/23 @ 20:28 by Faye Yoder PA-C) Diabetes mellitus, type II Hypertension Chronic back pain BPH (benign prostatic hyperplasia) PVD (peripheral vascular disease) Prediabetes diet controlled Hearing deficit Depression History of COVID-19 diagnosed 02/2021--mild symptoms, no symptoms now Chronic obstructive pulmonary disease inhalers daily/prn Lumbosacral radiculopathy Idiopathic polyneuropathy HLD (hyperlipidemia) Coronary 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 Parra @ [facility] 06/1998 History of colonoscopy History of tooth extraction all teeth removed History of sinus surgery Family History Other No family history of adverse response to anesthesia Social History Smoking Status: Unknown if ever smoked Second Hand Exposure: No; Do You Dip or Chew Tobacco: No; Hx Alcohol Use: No Hx Substance Use: No Preferred Language: Kenyan Communication Ability: Effective [employer]er [employer]or Required: No Beliefs That Will Affect Care: None marital status: / Current Living Situation: Alone How many Children do You have: 2 Other Information That Helps Us Care for You: No Feels Safe at Home: Yes Safety Concerns: Feels Safe At This Time Assistive Devices: Cane Review of Systems Review of Systems: At least ten systems reviewed and negative except as noted in the HPI. Physical Exam Physical Exam: Please see Dr. Urbano's addendum for physical exam. Results & Data Results & Data Vital Signs (Past 12 Hours) Vital Signs Pulse Pulse Resp BP BP Pulse Ox O2 Del Method 05/04/23 16:00 96 H 19 93 05/04/23 15:30 94 H 17 142/56 H 94 05/04/23 15:29 99 H 18 149/63 H 05/04/23 14:00 101 H 18 163/76 H 95 Room Air 05/04/23 13:30 100 H 18 149/82 H 94 Room Air 05/04/23 13:04 100 H 22 148/57 H 97 Room Air 05/04/23 12:28 110 H 16 120/59 L 96 Nasal Cannula O2 Flow Rate 05/04/23 16:00 05/04/23 15:30 05/04/23 15:29 05/04/23 14:00 05/04/23 13:30 05/04/23 13:04 05/04/23 12:28 2 Laboratory Results Short CBC 05/04/23 Range/Units 13:00 WBC 9.00 (4.8-10.8) K/ul Hgb 11.7 L (14.0-18.0) g/dl Hct 34.7 L (42.0-52.0) % Plt Count 101 L (130-400) K/uL BMP 05/04/23 13:00 Sodium 139 Potassium 4.0 Chloride 109 H Carbon Dioxide 21 BUN 19 Creatinine 1.54 H Glucose 115 H Calcium 9.4 Liver Function 05/04/23 Range/Units 13:00 Total Bilirubin 1.1 H (0.2-1.0) mg/dl AST 75 H (13-39) U/L ALT 24 (7-52) U/L Alkaline Phosphatase 72 (34-104) U/L Albumin 4.1 (3.4-5.0) gm/dl Diagnostic Findings Chest X-Ray 05/04/23 12:35 XR chest 1V portable CLINICAL HISTORY: stroke alert COMPARISON STUDY: Chest radiograph July 06, 2021. FINDINGS: There are low lung volumes. There is no pneumothorax or pleural effusion. Lower lung predominant reticulonodular interstitial thickening is present. Left hilar prominence is likely due to pulmonary vessels. Cardiomegaly is unchanged. IMPRESSION: Lower lung predominant reticulonodular interstitial thickening. This favors an infectious process. Pulmonary edema could appear similar. Radiographic follow-up to ensure resolution is recommended. ACT 112: Negative or not required by law. Electronically signed by: Jaylen Mcdaniel M.D. 05/04/2023 3:[address] 05/04/23 13:22 CT SCAN OF THE BRAIN WITHOUT IV CONTRAST CLINICAL HISTORY: Left leg numbness. COMPARISON STUDY: No priors. TECHNIQUE: Unenhanced axial CT scan of the brain is performed from the vertex to the skull base. A dose lowering technique was utilized adhering to the principles of ALARA. FINDINGS: Brain parenchyma: There is age-related involutional change noting mild subcortical and periventricular microangiopathic disease. There is no hemorrhage, mass effect, or evidence of acute territorial ischemia by CT criteria. Rivas-white matter differentiation is preserved. No extra-axial fluid collection is seen. Ventricles, sulci, cisterns: Prominent secondary to involutional change. Intracranial vasculature: There is atherosclerotic calcification of the cavernous carotid and vertebral arteries. Calvarium: Unremarkable. Sinuses and mastoids: There is evidence of previous paranasal sinus surgery. There is subtotal opacification of the right maxillary antrum. Mild mucosal thickening is noted in the right frontal sinus, and there is trace mucosal thickening within the ethmoid resection cavity. The mastoid air cells are well pneumatized. Orbits: The bony orbits are grossly intact. IMPRESSION: There is no hemorrhage, mass effect, or evidence of acute territorial ischemia by CT criteria. ACT 112: Negative or not required by law. Electronically signed by: Bashir Peguero M.D. 05/04/2023 3:37 PM Duplex Scan Lower Extremity Artery 05/04/23 13:26 US arterial duplex left lower extremity CLINICAL HISTORY: L leg numbness h/o right lower extremity bypass COMPARISON STUDY: None. FINDINGS: Calcified plaque within the mid left superficial femoral artery with associated elevated peak systolic velocity of 205 cm/s. This is consistent with an area of hemodynamically significant stenosis. There are normal biphasic waveforms and velocities seen throughout the remaining left lower extremity arterial system. No evidence for arterial occlusion. IMPRESSION: 1. Focal area of hemodynamically significant stenosis within the mid left superficial femoral artery. 2. No evidence for arterial occlusion within the left lower extremity. ACT 112: Negative or not required by law. Electronically signed by: Kannan Gutierrez M.D. 05/04/2023 3:21 PM Abdomen/Pelvis CT 05/04/23 14:[address] WITHOUT CONTRAST CT DOSE: 2037.69 mGy.cm HISTORY: elevated LFT/bili, eval lumbar spine LL numbness TECHNIQUE: Multiaxial CT images of the abdomen and pelvis were performed without contrast. A dose lowering technique was utilized adhering to the principles of ALARA. COMPARISON STUDY: Abdomen and pelvis CT 07/05/2021. FINDINGS: Emphysema noted at the lung bases. There are patchy groundglass densities within the lung bases most pronounced on the right. This may represent a pneumonia. No pneumoperitoneum. No pneumatosis. No acute fractures identified. Spinal stimulator leads terminate at the T9 level. The L3-L4 vertebral bodies are fused. There is a femorofemoral bypass graft again noted. 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 Hepatic steatosis. The unenhanced gallbladder, pancreas, spleen, and adrenal glands are unremarkable. Stable bilateral renal hypodense lesions. These are incompletely characterized on this noncontrast study but statistically represent cysts. No renal or ureteral calculi. No hydronephrosis. Calcified plaque within the normal caliber abdominal aorta. No retroperitoneal or pelvic lymphadenopathy. No pelvic free fluid. The bladder is moderately distended. No bladder wall thickening. Suboptimal evaluation for bowel pathology due to the lack of intravenous and oral contrast. However, there is no definite bowel wall thickening or obstruction. Colonic diverticulosis. No evidence for acute diverticulitis. B ulbous appearance to the tip of the appendix best seen on image 231 measuring 9 mm. This previously measured 13 mm. No evidence for acute appendicitis. IMPRESSION: 1. No renal or ureteral stones. No hydronephrosis. 2. No definite bowel wall thickening or obstruction. 3. Colonic diverticulosis. No evidence for acute diverticulitis. 4. Patchy bibasilar densities have progressed and may represent a pneumonia. 5. Bulbous appearance to the tip the appendix which has slightly improved. No evidence for acute appendicitis. An underlying lesion at the appendiceal tip remains the diagnosis of exclusion. Nonemergent surgical consultation recommended. 6. Additional findings as described above. ACT 112: Negative or not required by law. Electronically signed by: Kannan Gutierrez M.D. 05/04/2023 3:47 PM Supervising Physician Co-Signing Physician Notes Patient is a 78-year-old male with history of peripheral vascular disease, BPH, lumbar spinal stenosis and other medical problems presents with history of left lower extremity numbness associated with some weakness since yesterday. Patient admits to have inability to weight-bear on the left leg resulting in hitting his right knee and sustaining a fall yesterday. He denies any head trauma, loss of consciousness. He also states having some right foot numbness but denies any weakness. He also states that he was recovering from RSV since 3 weeks duration and still has some cough with clear expectoration but denies any chest pain, dyspnea. Patient's friend noticed patient to have some confusion this morning transiently. Please review HPI for complete details of presentation. I personally reviewed blood work and imaging studies. Blood work suggestive of chronic anemia, thrombocytopenia 101K, creatinine 1.54, chloride 109, glucose 115, magnesium 1.6, total bilirubin 1.1, AST 75, troponin 219, procalcitonin 25.4. Arterial Doppler showed focal area of hemodynamically significant stenosis of the mid left superior femoral artery. Chest x-ray showed reticulonodular interstitial thickening of lower lung suggestive of possible infectious source. CT abdomen showed bullous appearance of the tip of the appendix. EKG showed sinus tachycardia with PVCs, QTc 426. Physical Exam: Vitals signs as noted above General Appearance:Obese, no apparent distress Head: normocephalic, Atraumatic Eyes: normal inspection, EOMI Neck: supple, Trachea midline Respiratory/Chest: Decreased breath sounds, CTA, No accessory muscle use Cardiovascular: S1, S2, No murmur,+Tachycardia Abdomen/GI:Soft, Non tender, Bowel sounds present Extremities/Musculoskeletal:normal inspection, no edema, R knee erythematous, abrasion Neurologic/Psych:AAOX3, +Left LE mild decreased sensation but otherwise grossly no focal deficits, normal strength bilateral extremities Skin: normal color, warm Paresthesia of left lower extremity Likely due to peripheral vascular disease Rule out CVA Started on IV heparin Discussed with vascular surgery CT abdomen pending Continue aspirin, statin, cilostazol PT OT as able Fall precautions MRI brain pending Pneumonia Recent RSV Agree with empiric antibiotics Saturating well on room air Troponin elevation Less likely ACS Patient denies any chest pain, dyspnea EKG showed no signs of ischemia Trend troponins Obtain resting echo Consider cardiology evaluation if troponin trends upwards On IV heparin as above. Also on aspirin, statin, metoprolol Hypomagnesemia Replete electrolytes as needed CKD II Cr slightly elevated Continue IV fluids Avoid nephrotoxic agents as able I personally interviewed and examined at bedside. Patient's care is coordinated with Faye Martin PA-C. I have reviewed the advanced practitioner's documentation, and I agree with, and take responsibility for that plan of care. Please refer to the documentation above for details of patient's presentation and for discussion of other issues. I spent a total of-----minutes coordinating, documenting, and providing care for this patient excluding time spent in the performance of separately billed services.
[2023-05-04] MEDS ORDERED: Heparin IV Adult Wt-Based Standard w/ INITIAL Bolus Protocol IV SCH (17:20)
[2023-05-04] MEDS ORDERED: Patient's HEIGHT &/or WEIGHT Needed SCH (17:30)
[2023-05-04] MEDS: HEPARIN SOD (PORCINE) 1000 UNIT/ML ONE (17:47)
[2023-05-04] MEDS: HEPARIN 25000 UNIT/500 ML D5W IV ONE (17:47)
[2023-05-04] MEDS: HEPARIN SOD (PORCINE) 1000 UNIT/ML IV ONE (17:56)
[2023-05-04] MEDS: HEPARIN SODIUM/DEXTROSE 25,000 UNITS/500 ML BAG IV SCH (17:56)
[2023-05-04] MEDS: cefTRIAXone SODIUM 2,000 MG in DEXTROSE 5% 50 ML IV SCH (19:12)
[2023-05-04] MEDS: SODIUM CHLORIDE 0.9% 1,000 ML IV SCH (19:12)
--- NOTE | 2023-05-04 19:32 | XRay Report ---
LUMBAR SPINE 3 VIEWS CLINICAL HISTORY: Left leg numbness. FINDINGS: 3 views of the lumbar spine are compared to study dated 09/07/2015. The skeletal structures are osteopenic. There is no radiographic evidence of fracture or malalignment. Vertebral body height and alignment are maintained throughout the lumbar spine. Large anterior and lateral marginal osteoph ytes are seen throughout. The transverse and spinous processes appear intact. Facet arthropathy is se en in the mid to lower lumbar region. There is moderate to severe disc space narrowing at L3-L4. Mode rate narrowing is seen at L4-L5 and L5-S1. Posterior disc occupy complexes are seen at these levels. The visualized bony pelvis appears intact. Degenerative sclerosis is noted in the sacroiliac joints. A neurostimulator device projects over the left lower quadrant, with leads entering the central spina l canal in the thoracic region. There is advanced atherosclerotic calcification of the abdominal aort a. No bowel obstruction is seen. IMPRESSION: 1. No acute bony abnormality is seen involving the lumbar spine. 2. Osteopenia and spondylotic change as above. Electronically signed by: Bashir Peguero M.D. 05/04/2023 7:31 PM
--- NOTE | 2023-05-04 19:35 | XRay Report ---
LEFT KNEE 2 VIEWS CLINICAL HISTORY: Fall. Left knee pain. FINDINGS: AP and crosstable lateral views of the left knee are obtained. No prior studies are availab le for comparison at the time of dictation. The skeletal structures are osteopenic. No fracture is se en. There is minimal degenerative joint space narrowing. Patellar enthesophytes are observed. No join t effusion is seen. A calcified fabella is incidentally noted. There is mild prepatellar soft tissue swelling. Mild atherosclerotic calcification is noted in the popliteal artery. IMPRESSION: No acute bony abnormality is identified. Electronically signed by: Bashir Peguero M.D. 05/04/2023 7:33 PM
[2023-05-04] MEDS ORDERED: ALBUTEROL HFA 8 GM INHALER INH PRN (19:41)
[2023-05-04] MEDS ORDERED: hydrOXYzine HCl 25 MG TAB PO PRN (19:41)
[2023-05-04] MEDS: OPTIRAY 320 125ml IV ONE (19:52)
--- NOTE | 2023-05-04 20:00 | Emergency Department Note ---
ED Visit Note I have personally evaluated this patient examined him and reviewed the pertinent labs and data. I have discussed the case with Faye, the physician leasing assistant and agree with the plan. Please refer to the PA note. This patient comes in after having numbness and weakness in his left leg below the knee. It has been there since yesterday .he has no other neurologic deficits on exam he does seem to have strength in that leg. We did extensive workup as etiology for this could be central neurologic versus lumbar/peripheral versus arterial. We did arterial ultrasound and there is no significant acute tear or compromise. My exam he seems comfortable he denies any chest pain to me his troponin was significant elevated I did look at his EKG is no ischemic changes. I also looked at his CAT scan of his head is unremarkable. I do think he needs to be admitted/observed and given his weakness and elevated troponin it is still possible as could be a neurologic event but he is well outside of thrombolytic window and his symptoms make unlikely large vessel disease. We have consulted the [facility] hospitalist and they will see her in the ER for these measures. [employer] per my independent interpretationsinus tachycardia 104. PVCs. No acute ischemic changes. Head CT as per my independent interpretationno hemorrhage or mass effect seen .
[2023-05-04] MEDS ORDERED: POLYETHYLENE (MIRALAX) 17 GM PACK PO PRN (20:11)
[2023-05-04] MEDS: DOXYCYCLINE HYCLATE 100 MG in DEXTROSE 5% MINI-B 100 ML IV SCH (20:40)
[2023-05-04] MEDS: HYDROcodone/ACETAMINOPHEN 10/325 TAB PO ONE (20:41)
--- NOTE | 2023-05-04 20:45 | CT Scan Report ---
Exam(s): CTA ABDOMEN + PELVIS With Contrast IV Amt: 117 cc opti 320 EXAM: CT Angiography Abdomen and Pelvis With Intravenous Contrast CLINICAL HISTORY: Reason for exam: h/o PAD, r/o dissection. TECHNIQUE: Axial computed tomographic angiography images of the abdomen and pelvis with intravenous contrast. CTDI is 40.54 mGy and DLP is 1394.95 mGy-cm. Automated exposure control was utilized for the study. A dose lowering technique was utilized adhering to the principles of ALARA. MIP reconstructed images were created and reviewed. CONTRAST: Patient received 117 cc opti 320 of IV contrast COMPARISON: No relevant prior studies available. FINDINGS: VASCULATURE: Aorta: Moderate atherosclerotic changes of the abdominal aorta without aneurysm or dissection. The abdominal aorta is mildly calcified and irregular but nondilated. There is no aneurysm or dissection. Celiac trunk and mesenteric arteries: The celiac and superior mesenteric arteries are widely patent. The inferior mesenteric artery is small but patent. No occlusion or significant stenosis. Renal arteries: 2 right and one left renal arteries are widely patent. No occlusion or significant stenosis. 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 Atherosclerotic calcification and irregular narrowing of the proximal left common iliac artery with the lumen measuring 4.3 mm, 65%. Lung bases: Unremarkable. No mass. No consolidation. ABDOMEN: Liver: Unremarkable. No mass. Gallbladder and bile ducts: Unremarkable. No calcified stones. No ductal dilation. Pancreas: Unremarkable. No ductal dilation. No mass. Spleen: Unremarkable. No splenomegaly. Adrenals: Unremarkable. No mass. Kidneys and ureters: There are several renal simple cysts measuring up to 6.3 cm per no follow-up is required. No hydronephrosis. Stomach and bowel: See below. PELVIS: Appendix: Bowel loops are nondilated. The appendix is normal. There is diverticulosis of the lower left and sigmoid colon without evidence of acute diverticulitis per no acute inflammatory changes are seen involving the bowel. Bladder: Unremarkable. No mass. Reproductive: Unremarkable as visualized. ABDOMEN and PELVIS: Intraperitoneal space: Unremarkable. No significant fluid collection. No free air. Bones/joints: Moderate multilevel degenerative changes throughout the spine. No acute fracture or subluxation is seen. Soft tissues: Unremarkable. Lymph nodes: Unremarkable. No enlarged lymph nodes. Other findings: There is a left to right femorofemoral bypass graft which is widely patent. IMPRESSION: 1. 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 2. There is a left to right femorofemoral bypass graft which is widely patent. 3. Atherosclerotic calcification and irregular narrowing of the proximal left common iliac artery with the lumen measuring 4.3 mm, 65%. 4. Bowel loops are nondilated. The appendix is normal. There is diverticulosis of the lower left and sigmoid colon without evidence of acute diverticulitis per no acute inflammatory changes are seen involving the bowel. Electronically signed by: Israel Martin MD 05/04/23 20:44 PM
[2023-05-04] MEDS ORDERED: DEXTROSE 50% 50 ML SYRINGE IV PRN (20:48)
[2023-05-04] MEDS ORDERED: GLUCAGON FOR INJ 1 MG VIAL SQ PRN (20:48)
[2023-05-04] MEDS ORDERED: CARBOHYDRATES FOR HYPOGLYCEMIA PO PRN (20:48)
[2023-05-04] MEDS ORDERED: GLUCOSE 10 TAB/TUBE PO PRN (20:48)
[2023-05-04] MEDS ORDERED: GLUCOSE 40% GEL 15 GM TUBE PO PRN (20:48)
[2023-05-04] MEDS: THEOPHYLLINE 400 MG EXTENDED REL TAB PO SCH (20:51)
[2023-05-04] MEDS: lisinopril 5 MG TAB PO SCH (20:53)
[2023-05-04] MEDS: ROSUVASTATIN CALCIUM 20 MG TAB PO SCH (20:53)
[2023-05-04] MEDS: PANTOprazole 40 MG TAB PO SCH (20:53)
[2023-05-04] MEDS: MIRTAZAPINE TAB 15 MG TAB PO SCH (20:53)
[2023-05-04] MEDS: busPIRone 5 MG TAB PO SCH (20:54)
[2023-05-04] MEDS: TAMSULOSIN HCL 0.4 MG CAP PO SCH (20:54)
[2023-05-04] MEDS: cilostazoL 100 MG TAB PO SCH (20:54)
[2023-05-04] MEDS: PREGABALIN 150 MG CAP PO SCH (20:57)
[2023-05-04] MEDS: INSULIN ASPART PER UNIT CHARGE SC SCH (21:44)
[2023-05-04] MEDS: MAGNESIUM SULFATE / D5W 1 GM/100 ML BAG IV ONE (22:18)
--- OUTSIDE RECORDS SUMMARY | 2023-05-04 23:07 | External Medical Summary | Summary of Care ---
Author Name Unknown Organization [facility] Address [address] [place] [address] Phone [phone] Care Team Providers Care Control Clerk Food And Beverage Name Role Phone Martin Juarez MD Primary Care Pr ovider Reason for Visit * Auth/Cert Specialty Diagnoses / Procedures Referred By [facility] Referred To Contact Diagnoses Gastro-esophageal reflux disease without esophagitis Gastro-esophageal reflux disease without esophagitis [K21.9] Procedures EGD, FLEXIBLE, DIAGNOSTIC ESOPHAGOGASTRODUODENOSCOPY (EGD), FLEXIBLE, TRANSORAL, DIAGNOSTIC Referral ID Status Reason Start Date Expiration Date Visits Re quested Visits Authorized [id number] Encounter Details Date Type Department Care Team Description 01/03/2023 Hospital Encounter ENDO [facility], Endoscopy Room [facility] [address] [id number] Bob Black, [address] [address] Upper GI Endoscopy Allergies Active Allergy Reactions Severity Noted Date Comments Duloxetine Unknown 07/15/2020 Gabapentin Unknown 09/10/2019 Possible body shaking Oxycodone Nausea/vomiting 07/15/2020 documented as of this encounter (statuses as of 01/04/2023) Medications Medication Sig Dispensed Refills Start Date End Date Status ZAMZAM 180 MG PO TABSIndications:All ergic rhinitis one tab by mouth 1 time a day 30 6 05/27/2008 Active CILOSTAZOL 100 MG PO TABSIndications: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 0 Active Diclofenac Sodium 1 % gelIndications:appl y small amount to skin twice daily Apply topically to affected area. Indications: apply small amount to skin twice daily 0 Active mirtazapine (REMERON) 15 MG Tablet Take 1 Tablet by mouth at bedtime as needed for Anxiety. 0 Active pantoprazole (PROTONIX) 40 MG TBEC Take 1 Tablet by mouth at bedtime. 0 Active rosuvastatin (CRESTOR) 40 MG Tablet Take 1 Tablet by mouth at bedtime. 0 Active tamsulosin (FLOMAX) 0.4 MG Capsule Take 1 Capsule by mouth at bedtime. 0 Active Aspirin 81 MG Tablet Take 1 Tablet by mouth in the morning. 0 Active busPIRone (BUSPAR) 5 MG Tablet Take 1 Tablet by mouth in the morning and 1 Tablet before bedtime. 0 Active Albuterol Sulfate 108 (90 Base) MCG/ACT AEPB Inhale 2 Puffs by mouth every 4 hours as needed. 0 Active Tiotropium [place]-Olodaterol 2.5-2.5 MCG/ACT Inhalation Aerosol Solution Inhale 2 Puffs by mouth in the morning. 0 Active Metoprolol Succinate 25 MG CS24 Take 0.5 Tabs by mouth daily. Take 1/2 tab daily (12.5 mg) 0 Active Acetaminophen 325 MG Oral Capsule Take 650 mg by mouth as needed for Pain. 0 Active metFORMIN HCl ER (MOD) 500 MG Oral Tablet Extended Release 24 Hour Take 1 Tablet by mouth daily with dinner. 0 Active Sucralfate 1 GM Oral Tablet (Carafate) Take 1 Tablet by mouth in the morning and 1 Tablet before bedtime. 120 Tablet 0 01/03/2023 Active documented as of this encounter (statuses as of 01/04/2023) Active Problems Problem Noted Date DYSLIPIDEMIA, GOAL LDL BELOW 100 009 Overview: Per Lipid Taxonomy. 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 Peptic ulcer 02/18/2008 documented as of this encounter (statuses as of 01/04/2023) Immunizations Name Administration Dates Next Due Seasonal Influenza, Split, IIV3, With Preserve, Inj 12/19/2007,04/17/2006 TDAP (age 11 and older)(Adacel) 10/15/2007 documented as of this encounter Social History Tobacco Use Types Packs/Day Years Used Date Smoking Tobacco: Former Cigarettes 0.5 40 Q uit: 06/20/2008 Comments:06/20/2008 Alcohol Use Standard Drinks/Week Comments No 0 (1 standard drink = 0.6 oz pur e alcohol) Sex Assigned at Date Recorded Not on file Job Start Date Occupation Industry Not on file Not on file Not on file documented as of this encounter Last Filed Vital Signs Vital Sign Reading Time Taken Comments Blood Pressure 133/56 01/03/2023 2:59 PM EDT Pulse 60 01/03/2023 2:59 PM EDT Temperature 36.2 C (97.2 F) 01/03/2023 2:59 PM ED T Respiratory Rate 20 01/03/2023 2:59 PM EDT Oxygen Saturation 98% 01/03/2023 2:59 PM EDT Inhaled Oxygen Concentration - - Weight 87.1 kg (192 lb) 01/03/2023 1:59 PM EDT Height 170.2 cm (5' 7") 01/03/2023 1:59 PM EDT Body Mass Index 30.07 01/03/2023 1:59 PM EDT documented in this encounter H&P Notes * Bob Black DO - 01/03/2023 1:58 PM EDT Endoscopy Pre-Procedure Assessment Name: Solomon Ruiz Date: 01/03/2023 Time: 1:58 PM Procedure(s): Upper GI Endoscopy; with Indication(s) of upper abdominal symptoms that persist despite an appropriate trial of therapy Endoscopy Pre-Procedure Assessment: Prior to the procedure, the patient is identified. The patient's history, medications and allergieshave been reviewed. The patient is competent. The risks and benefits of the proposed procedure and the planned sedation have been discussed with the patient. All questions have been answered and informed consent for the procedure has been obtained. Prior to Admission medications Medication Sig Last Dose Discont. metFORMIN HCl ER (MOD) 500 MG Oral Tablet Extended Release 24 Hour Take 1 Tablet by mouth daily with dinner. 01/02/2023 Metoprolol Succinate 25 MG CS24 Take 0.5 Tabs by mouth daily. Take 1/2 tab daily (12.5 mg) 01/03/2023 Albuterol Sulfate 108 (90 Base) MCG/ACT AEPB Inhale 2 Puffs by mouth every 4 hours as needed. 01/03/2023 amLODIPine (NORVASC) 2.5 MG Tablet Take 1 Tablet by mouth in the morning. 01/03/2023 Aspirin 81 MG Tablet Take 1 Tablet by mouth in the morning. Past Week busPIRone (BUSPAR) 5 MG Tablet Take 1 Tablet by mouth in the morning and 1 Tablet before bedtime. 01/02/2023 Diclofenac Sodium 1 % gel Apply topically to affected area. Indications: apply small amount to skintwice daily Past Week mirtazapine (REMERON) 15 MG Tablet Take 1 Tablet by mouth at bedtime as needed for Anxiety. 01/02/2023 pantoprazole (PROTONIX) 40 MG TBEC Take 1 Tablet by mouth at bedtime. 01/02/2023 rosuvastatin (CRESTOR) 40 MG Tablet Take 1 Tablet by mouth at bedtime. Past Week tamsulosin (FLOMAX) 0.4 MG Capsule Take 1 Capsule by mouth at bedtime. 01/02/2023 Tiotropium [place]-Olodaterol 2.5-2.5 MCG/ACT Inhalation Aerosol Solution Inhale 2 Puffs by mouth in the morning. 01/03/2023 HYDROCODONE-ACETAMINOPHEN 5-500 MG PO TABS 1 pill by mouth every 6 hours as needed for pain 01/03/2023 CILOSTAZOL 100 MG PO TABS 1 po daily Patient taking differently: No sig reported Past Week ZAMZAM 180 MG PO TABS one tab by mouth 1 time a day Unknown Acetaminophen 325 MG Oral Capsule Take 650 mg by mouth as needed for Pain. Patient not taking: Reported on 08/10/2021 Over 30 Days Review of patient's allergies indicates: Allergen Reactions Duloxetine Unknown Gabapentin Unknown Possible body shaking Oxycodone Nausea/vomiting Ht 1.702 m (5' 7") | Wt 87.1 kg (192 lb) | BMI 30.07 kg/m | BSA 2.03 m Physical Exam: Mental Status Examination: alert and oriented. Airway Examination: normal oropharyngeal airway and neck mobility. Respiratory Examination: clear to auscultation. CV Examination: systolic murmur. ASA Grade: III - A patient with severe systemic disease. Abdomen: soft This patient has undergone a preprocedural evaluation. A determination has been made to proceed with the planned procedure under [facility] procedural guidelines and the [facility] Non-Emergent, Elective Medical Services and Treatment Recommendations (published on 06-25-19). The community and hospital prevalence of COVID-19 has been discussed as well as this patient's specific risks associated with SARS-CoV-19 infection. Based upon the clinical acuity and patient-specific care considerations, this procedure is deemed a Tier II - Intermediate acuity treatment or service with either progression or the threat of progressive disease related to the delay in treatment. Not providing the service has the potential for increasing morbidity or mortality. After reviewing the risks and benefits, the patient is deemed in satisfactory condition to undergo the procedure. The anesthesia plan is to use general anesthesia. We have discussed the risks and benefits of upper endoscopy to include bleeding, infection, perforation, discomfort, aspiration and need for follow-up studies. Bob Black DO 01/03/2023 documented in this encounter Procedure Notes * Martin Mccarthy MD - 01/03/2023 2:20 PM EDTAssociated Order(s): UPPER GI ENDOSCOPY [facility] Patient Name: Solomon Ruiz Procedure Date: 01/03/2023 2:20 PM Date of : 1945 Admit Type: Outpatient Note Status: Finalized Date of : 1945 Admit Type: Outpatient Age: 77 Room: [facility] Gender: Male Note Status: Finalized Procedure: Upper GI endoscopy Indications: Suspected esophageal reflux Providers: Bob Black DO (Doctor) Referring MD: Martin Mccarthy MD (Referring MD) Medicines: General Anesthesia Complications: No immediate complications. Estimated blood loss: Minimal. Procedure: Pre-Anesthesia Assessment: - Prior to the procedure, a History and Physical was performed, and patient medications, allergies and sensitivities were reviewed. The patient's tolerance of previous anesthesia was reviewed. - The risks and benefits of the procedure and the sedation options and risks were discussed with the patient. All questions were answered and informed consent was obtained. - Patient identification and proposed procedure were verified prior to the procedure by the physician, the nurse and the sprinkler fitter. The procedure was verified in the procedure room. - Pre-procedure physical examination revealed no contraindications to sedation. - ASA Grade Assessment: III - A patient with severe systemic disease. - After reviewing the risks and benefits, the patient was deemed in satisfactory condition to undergo the procedure. - The anesthesia plan was to use general anesthesia. - Immediately prior to administration of medications, the patient was re- assessed for adequacy to receive sedatives. - The heart rate, respiratory rate, oxygen saturations, blood pressure, adequacy of pulmonary ventilation, and response to care were monitored throughout the procedure. - The physical status of the patient was re-assessed after the procedure. After obtaining informed consent, the endoscope was passed under direct vision. All instruments were visually inspected immediately before and after removal from the patient to ensure they are fully intact. Throughout the procedure, the patient's blood pressure, pulse, and oxygen saturations were monitored continuously. The GIF-H180 Endoscope ([id number]) was introduced through the mouth, and advanced to the third part of duodenum. The upper GI endoscopy was accomplished without difficulty. The patient tolerated the procedure well. Findings & Specimens: The examined esophagus was normal. Biopsies were taken with a cold forceps for histology. The pathology specimen was placed into Bottle Number 2. Estimated blood loss was minimal. The Z-line was regular and was found 38 cm from the incisors. Diffuse mild inflammation characterized by congestion (edema), erythema and granularity was found in the entire examined stomach. Biopsies were taken with a cold forceps for histology. The pathology specimen was placed into Bottle Number 1. Estimated blood loss was minimal. The examined duodenum was normal. Impression: - Normal esophagus. Biopsied. - Z-line regular, 38 cm from the incisors. - Gastritis, likely medication related (Buspar or Norvasc could be potential causes). Biopsied. - Normal examined duodenum. Recommendation: - The patient will be observed post-procedure, until all discharge criteria are met. - Advance diet as tolerated today. - Use sucralfate tablets 1 gram PO BID for 6 weeks. - Return to referring physician as previously scheduled. Bob Black DO 01/03/2023 2:43:11 PM This report has been signed electronically. documented in this encounter Nursing Notes * Vera Ren RN - 01/03/2023 2:58 PM EDT Patient is alert, pain free, and tolerating po fluids prior to discharge. Patient has been visited by Dr. Bob Black. Patient has received and demonstrates understanding of discharge instructions. Patient ambulates to private auto accompanied by endo staff. * Vera Ren RN - 01/03/2023 2:44 PM EDT Patient transferred to post endo s/p endoscopy. Patient awake and responding appropriately Respirations are even and unlabored on room air. NSR in the 50s on the monitor. Abdomen soft and non distended. Vital signs stable. * David Ruth RN - 01/03/2023 2:41 PM EDT Specimen(s) and location(s) verified with physician post procedure 2:41 PM David Ruth RN See anesthesia record for medication administered during procedure. David Ruth RN Pre cleaning of scope at the bedside started by food technologist. * Sally Cooper RN - 01/03/2023 2:04 PM EDT Patient prepped and ready for procedure. Call gray in reach. * Sally Cooper RN - 01/03/2023 1:36 PM EDT The following pt discharge instructions reviewed with pt prior to prodedure: No driving today. No alcohol today. No signing of legal documents. Rest as much as possible today and can return to normal activities tomorrow. No operating any heavy equipment today. Diet as tolerated. Pt verbalized understanding. documented in this encounter Plan of Treatment Pending Results Name Type Priority Associated Diagnoses Date /Time SURGICAL PATHOLOGY Pathology Routine Gastro-esophageal reflux disease without esophagitis 01/03/2023 2:41 PM EDT Scheduled Orders Name Type Priority Associated Diagnoses Orde r Schedule SURGICAL PATHOLOGY Pathology Routine Gastro-esophageal reflux disease without esophagitis Release Upon Ordering for 1 Occurrences starting 01/03/2023, 1 completed Health Maintenance Due Date Last Done Comments COVID-19 Vaccine (#1) 1945 Depression Screening 1958 Hepatitis C Screening 01/09/1964 Pneumococcal Vaccine: 65+ Years (1 - PCV) 2011 DTaP,Tdap,and Td Vaccines (2 - Td or Tdap) 10/14/2017 10/15/2007 Influenza Vaccine (FLU shot) (#1) 2022 01/17/2019, 01/23/2018, 01/11/2016, Additional history exists Zoster Vaccines Completed 11/13/2019, 04/21, 07/15/2016 COLONOSCOPY-EVERY 3 YRS AGES 18-100 Discontinued 08/10/2021, 08/10/2021, 07/21/2020, Additional history exists LUNG CANCER SCREENING - USE SMARTSET 52848 Completed 06/15/2022, 06/09/2021 GARDASIL-HPV IMMUNIZATION SERIES Aged Out No longer eligible based on patient's age to complete this topic Hepatitis B Aged Out No longer eligi ble based on patient's age to complete this topic MENINGOCOCCAL (MENACTRA/MENVEO) Aged Out No longer eligible based on patient's age to complete this topic documented as of this encounter Medical Devices Implanted Type Area Street Contractor Device Identifier Shelf Expiration Date Model / Serial / Lot Clip Quick 2.8mm 230cm - [id number] Implanted:Qty: 3 on 12/13/2018 by Fede Heath MD at ENDOSCOPY [facility] Digital [employer] [facility] 06/17/2021 [id number] / / documented as of this encounter Procedures Procedure Name Priority Date/Time Associated Diagnosis Comments UPPER GI ENDOSCOPY 01/03/2023 2: 20 PM EDT GLUCOSE METER, POINT OF CARE SILVER 01/03/2023 2:02 PM EDT documented in this encounter Results * UPPER GI ENDOSCOPY (01/03/2023 2:20 PM EDT) 01/03/2023 2:20 PM EDT Procedure Note Martin Mccarthy MD - 01/03/2023 2:20 PM EDT [facility] Patient Name: Solomon Ruiz Procedure Date: 01/03/2023 2:20 PM Date of : 1945 Admit Type: Outpatient Note Status:Finalized Date of : 1945 Admit Type: Outpatient Age: 77 Room: Advanced Endo Gender: Male Note Status: Finalized Procedure: Upper GI endoscopy Indications: Suspected esophageal reflux Providers: Bob Black DO (Doctor) Referring MD: Martin Mccarthy MD (Referring MD) Medicines: General Anesthesia Complications: No immediate complications. Estimated blood loss:Minimal. Procedure: Pre-Anesthesia Assessment: - Prior to the procedure, a History and Physicalwas performed, and patient medications, allergies and sensitivities werereviewed. The patient's tolerance of previous anesthesia was reviewed. - The risks and benefits of the procedure and thesedation options and risks were discussed with the patient. All questions wereanswered and informed consent was obtained. - Patient identification and proposed procedurewere verified prior to the procedure by the physician, the nurse and the sprinkler fitter.The procedure was verified in the procedure room. - Pre-procedure physical examination revealed nocontraindications to sedation. - ASA Grade Assessment: III - A patient with severesystemic disease. - After reviewing the risks and benefits, thepatient was deemed in satisfactory condition to undergo the procedure. - The anesthesia plan was to use generalanesthesia. - Immediately prior to administration ofmedications, the patient was re-assessed for adequacy to receive sedatives. - The heart rate, respiratory rate, oxygensaturations, blood pressure, adequacy of pulmonary ventilation, and response to care weremonitored throughout the procedure. - The physical status of the patient wasre-assessed after the procedure. After obtaining informed consent, the endoscope waspassed under direct vision. All instruments were visually inspected immediatelybefore and after removal from the patient to ensure they are fully intact. Throughout the procedure, the patient's bloodpressure, pulse, and oxygen saturations were monitored continuously. The GIF-H180 Endoscope([id number]) was introduced through the mouth, and advanced to the third part ofduodenum. The upper GI endoscopy was accomplished without difficulty. The patienttolerated the procedure well. Findings & Specimens: The examined esophagus was normal. Biopsies were taken with a coldforceps for histology. The pathology specimen was placed into Bottle Number 2. Estimated blood loss wasminimal. The Z-line was regular and was found 38 cm from the incisors. Diffuse mild inflammation characterized by congestion (edema),erythema and granularity was found in the entire examined stomach. Biopsies were taken with a cold forcepsfor histology. The pathology specimen was placed into Bottle Number 1. Estimated blood loss wasminimal. The examined duodenum was normal. Impression: - Normal esophagus. Biopsied. - Z-line regular, 38 cm from the incisors. - Gastritis, likely medication related (Buspar orNorvasc could be potential causes). Biopsied. - Normal examined duodenum. Recommendation: - The patient will be observed post-procedure,until all discharge criteria are met. - Advance diet as tolerated today. - Use sucralfate tablets 1 gram PO BID for 6weeks. - Return to referring physician as previouslyscheduled. Bob Black DO 01/03/2023 2:43:11 PM This report has been signed electronically. Martin Mccarthy MD GASTRO U [facility] * GLUCOSE METER, POINT OF CARE (01/03/2023 2:02 PM EDT) Glucose Meter 103 70 - 120 mg/dL 01/03/2023 2:05 PM EDT LABORATORY [facility] 57 Blood Whole blood specimen / Unknown 01/03/2023 2:02 PM EDT 01/03/2023 2:05 PM EDT Bob Toure [facility] POINT OF CARE TE ST DOCKED DEVICE UNSOLICITED RESULTS LAB[facility]AT[facility] [address] [facility] [place] [address] documented in this encounter Visit Diagnoses Diagnosis Gastro-esophageal reflux disease without esophagitis Esophageal reflux documented in this encounter Administered Medications Inactive Administered Medications - up to 3 most recent administrations Medication Order MAR Action Action Date Dose Rate Site isolyte-S pH 7.4 infusion Intravenous, at 100 mL/hr, Plasma-LYTE 148, isolyte-S, and isolyte-S pH 7.4 are considered equivalent - including for MAR barcode scanning., CONTINUOUS, Starting on Mon01/03/23 at 1415, Until Mon01/03/23 at 191, Pre-Op Continue from Pre-Op 01/03/2023 2:33 PM EDT 100 mL/hr New Bag 01/03/2023 2:03 PM EDT 100 mL/hr documented in this encounter Active and Recently Administered Medications Times are shown in EDT. Continuous Medication Order 01/01/2023 01/02/2023 01/03/2023 isolyte-S pH 7.4 infusion Intravenous, at 100 mL/hr, Plasma-LYTE 148, isolyte-S, and isolyte-S pH 7.4 are considered equivalent - including for MAR barcode scanning., CONTINUOUS, Starting on Mon01/03/23 at 1415, Until Mon01/03/23 at 1915, Pre-Op 1403 (New Bag - Prov ider: Sally Cooper RN)1433 (Continue from Pre-Op - Provider: Braulio Burroughs CRNA)1441 (Anes Intra-Op Fluid - Provider: Braulio Burroughs CRNA) documented in this encounter Care Teams Control Clerk Food And Beverage Relationship Specialty Start Date End Date Martin Juarez MD [address] [place] [address] PCP - General Family Medicine 06/20/22 documented as of this encounter
--- OUTSIDE RECORDS SUMMARY | 2023-05-04 23:07 | External Medical Summary ---
Author Name Unknown Address Unknown Organization : Laboratory Report Ordering Provider Test Date Status ROSE JEAN-BAPTISTE 01/03/2023 14:02:47 Final Observation Date Value Abnormality Reference (Units ) Status Glucose Point of Care 01/03/2023 14:02:47 103 70-120 (mg/dL) Final Performing Location
[2023-05-05 01:12] LABS: ANTI-Xa, UFH(UnfractionatedHep 0.81 IU/ml (0.3-0.7)
--- NOTE | 2023-05-05 05:54 | Electrocardiogram Report ---
Test Reason : Blood Pressure : / mmHG Vent. Rate : 104 BPM Atrial Rate : 104 BPM P-R Int : 134 ms QRS Dur : 080 ms QT Int : 324 ms P-R-T Axes : 084 056 074 degrees QTc Int : 426 ms Sinus tachycardia with frequent Premature ventricular complexes Otherwise normal ECG When compared with ECG of 05-JUL-2021 09:07, Premature ventricular complexes are now Present Confirmed by Jonas Galaviz ([id number]) on 05/05/2023 5:53:55 AM Referred By: Confirmed By:Jonas Galaviz
[2023-05-05] MEDS: ALUMINUM/MAGNESIUM/SIMETH (MAALOX MAX) 30 ML UDC PO STA (06:17)
[2023-05-05 06:42] LABS: Hematocrit (blood only) 36.3 % (42.0-52.0); Hemoglobin 12.5 g/dl (14.0-18.0); Mean Corpuscular Hemoglobin 29.4 pg (25.0-34.0); Mean Corpuscular Hgb Conc 34.4 g/dL (32.0-36.0); Mean Corpuscular Volume 85.4 fL (80.0-100.0); Mean Platelet Volume 9.7 fL (9.4-12.4); Platelet Count 109 K/uL (130-400); RDW Coefficient of Variation 15.4 % (11.5-14.5); RDW Standard Deviation 47.7 fL (36.4-46.3); Red Blood Count 4.25 M/uL (4.70-6.10); White Blood Count 11.51 K/ul (4.8-10.8)
[2023-05-05 07:09] LABS: BUN Creatinine Ratio 11.5 (10-20); Calcium 8.8 mg/dl (8.6-10.3); Chol HDL Ratio 2.8 (0-5); Est GFR (African American) 60.4 ml/min; Est GFR (Non-African American) 52.1 ml/min; Magnesium 1.9 mg/dl (1.7-2.4); Potassium 3.5 mmol/L (3.5-5.1)
[2023-05-05 07:25] LABS: ANTI-Xa, UFH(UnfractionatedHep 0.52 IU/ml (0.3-0.7)
[2023-05-05 07:45] LABS: Troponin I High Sensitivity 202.5 pg/ml (0-20)
--- NOTE | 2023-05-05 08:07 | Cardiology Consultation ---
Date of Consultation May 05, 2023 Assessment & Plan (1) Elevated troponin: (2) Left leg numbness: (3) PAD (peripheral artery disease): (4) Hypertension: (5) PVC (premature ventricular contraction): Plan IMPRESSION: 78 year old male with who presented with new onset LLE numbness/loss of sensation and weakness. Known history of PAD with prior fem-fem bypass in ~1998. Elevated troponin ~200s. EKG without ischemic changes. Patient chest pain free. Tele showing ST with frequent PVCs- asymptomatic. Echo with preserved LV systolic function, no wall motion abnormalities or significant valvular disease. Study was technically difficult. PLAN: Elevated troponin: Patient certainly carries risk factors of CAD, however, in absence of symptoms and EKG without ischemic changes low likelihood for ACS to be the cause of his elevated troponin. Other causes could include CVA vs ischemic event to the leg. 1. Appreciate vascular recommendations-- patient currently maintained on IV heparin. 2. Echocardiogram with a preserved LV systolic function and no new wall motion abnormalities. 3. Continue ASA and Statin/Zetia as ordered. Hypertension: Blood pressure initially elevated, but improved this am. Home meds restarted including Norvasc and lisinopril-- continue PVCs: Frequent PVCs on telemetry with ST rates 90-low 100s. Asymptomatic. No VT on telemetry. 1. Increase metoprolol succinate to 25 mg twice daily Case to be discussed with Dr. Warner-- further recommendations pending his assessment. I spent a total of 40 minutes on the date of service in preparation, delivery, and documentation of the care provided to the patient excluding any time spent in the performance of separately billed services. WALTER Zhao Department of Cardiology, [facility] This chart was completed in part utilizing Speech Voice Recognition Software. Grammatical errors, random word insertions, pronoun errors, and incomplete sentences are an occasional consequence of this system due to software limitations, ambient noise, and hardware issues. Any formal questions or concerns about the content, text, or information contained within the body of this dictation should be directly addressed to the provider for clarification. Supervising Physician Co-Signing Physician Notes Patient was seen and personally examined. Chart medications and telemetry reviewed. Full assessment and plan as by advanced provider above. Treatment plan discussed in detail 78-year-old male without known cardiac disease but with underlying cardiovascular risk factors of hypertension hyperlipidemia and peripheral vascular disease. Patient presented yesterday with acute left lower limb weakness and paresthesia. Symptoms have resolved Initial vascular workup without acute occlusion Troponins elevated on presentation and throughout admission though flat without evolution EKGs without acute ischemia, echocardiogram with preserved LV function and wall motion Heart rate elevated with PVCs on telemetry Recommendations as above. Findings do not suggest an acute cardiac complaint accounting for issues Will increase metoprolol succinate to 25 mg twice per day for heart rate and rhythm control Complete 24 hours IV heparin History of Present Illness Reason for Consultation: Elevated troponin Requesting Physician: Phoenix Weemsist Attending Physician: Gwen Lucia MD History of Present Illness 78-year-old male who presented to [facility] emergency department yesterday due to new onset left lower extremity numbness/tingling + weakness. Vascular consulted-- patient placed on IV heparin. 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 2. There is a left to right fem-fem bypass graft which is widely patent. 3. Atherosclerotic calcification and irregular narrowing of the proximal left common iliac artery with the lumen measuring 4.3 mm, 65%. Lower extremity duplex--focal area of hemodynamically significant stenosis of the mid left superficial femoral artery. No evidence of arterial occlusion of the left lower extremity. Brain MRI ordered to rule out CVA however on hold due to spinal stimulator implant. EKG showing ST with frequent PVCs, 103 bpm HS trop elevated (219>>254>>250>>202) Echo with preserved LV systolic function, no wall motion abnormalities or significant valvular disease. Study was technically difficult. Upon entrance into the room patient resting in bed. Endorses generalized weakness. Ongoing left leg numbness, but notes mild improvement. Per the patient- leg was initially cold, but this has resolved. Right leg became mildly numb yesterday afternoon, now feels similar to left leg. Denies any recent chest pain, shortness of breath, or palpitations. No light headedness. Did have a fall yesterday prior to admission due to weakness in his left leg. No nausea or vomiting. [facility] Denies prior hx of CAD or CVA. Past medical History: Peripheral arterial disease history of RLE fem-fem bypass [place] [address] Parra Lumbosacral radiculopathy (L4-L5 and L5-S1) with chronic back pain status post spinal stimulator implanted by Dr. Armas, ~2021 Chronic opioid use. Hypertension Hyperlipidemia COPD BPH Allergies Allergy/AdvReac Type Severity Reaction Status Date / Time gabapentin Allergy Unknown Unknown Verified 04/25/22 11:43 duloxetine AdvReac Intermediate Insomnia Verified 04/25/22 11:43 oxycodone AdvReac Intermediate Abdominal Verified 04/25/22 11:43 Discomfort, Vomiting, Headache Home Medications Medication Instructions Recorded Confirmed Type albuterol sulfate 90 mcg/actuation 1 inh inhalation QID PRN Shortness 07/05/21 05/04/23 History aerosol inhaler Of Breath aspirin 81 mg tablet,delayed 81 mg PO QAM 07/05/21 05/04/23 History release buspirone 5 mg tablet 5 mg PO BID 07/05/21 05/04/23 History cilostazol 100 mg tablet 100 mg PO BID 07/05/21 05/04/23 History diclofenac sodium 1 % topical gel 2 g topical BID PRN Pain 07/05/21 05/04/23 History hydrocodone 10 mg-acetaminophen 1 tab PO Q6H PRN Pain 07/05/21 05/04/23 History 325 mg tablet metoprolol succinate 25 mg 12.5 mg PO QAM 07/05/21 05/04/23 History tablet,extended release 24 hr mirtazapine 30 mg tablet 30 mg PO HS 07/05/21 05/04/23 History multivitamin 1 tab PO QAM 07/05/21 05/04/23 History pantoprazole 20 mg tablet,delayed 40 mg PO BID 07/05/21 05/04/23 History release pregabalin 150 mg capsule 150 mg PO BID 07/05/21 05/04/23 History rosuvastatin 40 mg tablet 40 mg PO HS 07/05/21 05/04/23 History tamsulosin 0.4 mg capsule 0.4 mg PO HS 07/05/21 05/04/23 History theophylline 400 mg 400 mg PO HS 07/05/21 05/04/23 History tablet,extended release 24 hr tiotropium bromide 2.5 2 inh inhalation QAM 07/05/21 05/04/23 History mcg/actuation mist for inhalation ascorbic acid (vitamin C) 1,000 mg 1 g PO QAM 04/19/22 05/04/23 History tablet (Vitamin C) cyanocobalamin (vitamin B-12) 1,000 mcg PO QAM 04/19/22 05/04/23 History 1,000 mcg tablet (Vitamin B-12) lisinopril 5 mg tablet 5 mg PO HS 04/19/22 05/04/23 History amlodipine 5 mg tablet 5 mg PO DAILY 05/04/23 05/04/23 History ezetimibe 10 mg tablet 10 mg PO DAILY 05/04/23 05/04/23 History fluticasone propionate 50 1 spray intranasal BID PRN Nasal 05/04/23 05/04/23 History mcg/actuation nasal Congestion spray,suspension hydroxyzine HCl 25 mg tablet 25 mg PO HS PRN Insomnia 05/04/23 05/04/23 History metformin 500 mg tablet 500 mg PO BID 05/04/23 05/04/23 History Patient History Medical History (Updated 05/05/23 @ 09:[address]) Diabetes mellitus, type II Hypertension Chronic back pain BPH (benign prostatic hyperplasia) PVD (peripheral vascular disease) Hearing deficit Depression History of COVID-19 diagnosed 02/2021--mild symptoms, no symptoms now Chronic obstructive pulmonary disease inhalers daily/prn Lumbosacral radiculopathy Idiopathic polyneuropathy HLD (hyperlipidemia) Coronary atherosclerosis of [place] coronary vessel Surgical History History of femoropopliteal bypass right total---Dr. Parra @ [facility] 06/1998 History of colonoscopy History of tooth extraction all teeth removed History of sinus surgery Family History Other No family history of adverse response to anesthesia Social History Smoking Status: Unknown if ever smoked Second Hand Exposure: No; Do You Dip or Chew Tobacco: No; Hx Alcohol Use: No Hx Substance Use: No Preferred Language: Jamaican Communication Ability: Effective Production Posting Clerk Required: No Beliefs That Will Affect Care: None marital status: / Current Living Situation: Alone How many Children do You have: 2 Other Information That Helps Us Care for You: No Feels Safe at Home: Yes Safety Concerns: Feels Safe At This Time Assistive Devices: Cane Review of Systems Review of Systems: All systems reviewed & are unremarkable except as noted in HPI & below Physical Exam Constitutional: well developed and well nourished; no acute distress Eyes: PERRL, conjunctivae normal, anicteric sclerae ENMT: external ear and nose normal, oropharynx normal Neck: normal visual inspection and trachea midline Respiratory: normal respiratory effort; no respiratory distress and no cough Auscultation: no rales, no rhonchi and no wheezes Cardiovascular: Rate/Rhythm: regular rate and regular rhythm (Frequent ectopic beats auscultated ) Heart Sounds: normal S1, normal S2 and + murmur (soft systolic murmur at apex) Vessels: posterior tibial pulses present and dorsalis pedis pulses present; no JVD Extremities: no edema Gastrointestinal (Abdomen): Inspection/Auscultation: abdomen normal to inspection Percussion/Palpation: abdomen soft; abdomen nontender Musculoskeletal: Extremities: + lower leg abnormality (numbness/tingling.) Bilateral; + abnormal strength (weakness BL) Skin: no rashes, warm and dry BLLE warm, mild bruising on left outer thigh Neurologic: PERRL, EOMI, accommodation nl, no face palsy, no dysarthria moves all extremities (BL weakness) Psychiatric: Orientation: alert and oriented x 3 Results & Data Vital Signs (Past 12 Hours) Vital Signs Temp Pulse Pulse Resp BP Pulse Ox O2 Del Method 05/05/23 07:38 36.9 C 67 17 131/67 93 Room Air 05/05/23 03:04 36.7 C 97 H 16 148/69 H 94 Room Air 05/04/23 23:00 97 H 05/04/23 22:59 37.2 C 98 H 18 156/77 H 98 Room Air 05/04/23 20:11 107 H 05/04/23 20:11 Room Air Laboratory Results Cardiac Enzymes 05/04/23 05/04/23 05/04/23 Range/Units 13:00 17:00 22:33 AST 75 H (13-39) U/L Troponin I High Sens 219.1 H* 254.7 H* 250.8 H* (0-20) pg/ml 05/05/23 Range/Units 06:21 AST (13-39) U/L Troponin I High Sens 202.5 H* (0-20) pg/ml Coagulation 05/04/23 Range/Units 13:00 PT 11.4 (9.0-12.0) Seconds APTT 33 H (21-31) Seconds Lipids 05/05/23 Range/Units 06:21 Triglycerides 150 (0-150) mg/dl Cholesterol 113 (0-200) mg/dl HDL Cholesterol 40 mg/dl Cholesterol/HDL Ratio 2.8 (0-5) CBC 05/04/23 05/05/23 Range/Units 13:00 06:21 WBC 9.00 11.51 H (4.8-10.8) K/ul RBC 4.02 L 4.25 L (4.70-6.10) M/uL Hgb 11.7 L 12.5 L (14.0-18.0) g/dl Hct 34.7 L 36.3 L (42.0-52.0) % Plt Count 101 L 109 L (130-400) K/uL Comprehensive Metabolic Panel 05/04/23 05/05/23 Range/Units 13:00 06:21 Sodium 139 141 (136-145) mmol/L Potassium 4.0 3.5 (3.5-5.1) mmol/L Chloride 109 H 111 H (98-107) mmol/L Carbon Dioxide 21 18 L (21-32) mmol/L BUN 19 15 (6-23) mg/dl Creatinine 1.54 H 1.31 (0.6-1.4) mg/dl Glucose 115 H 111 H (70-99(Fasting)) mg/dl Calcium 9.4 8.8 (8.6-10.3) mg/dl AST 75 H (13-39) U/L ALT 24 (7-52) U/L Alkaline Phosphatase 72 (34-104) U/L Total Protein 7.4 (6.0-8.3) gm/dl Albumin 4.1 (3.4-5.0) gm/dl Intake and Output 05/04/23 05/05/23 05/05/23 22:59 06:59 14:59 Intake Total 420 / 2201.2 1281.2 / 2201.2 126.8 / 126.8 Output Total 150 / 751 601 / 751 Balance 270 / 1450.2 680.2 / 1450.2 126.8 / 126.8 Intake: IV 170 / 1951.2 1281.2 / 1951.2 126.8 / 126.8 Doxycycline Hyclate 100 mg In 100 / 100 Dextrose 5% Mini-B 100 ml @ 50 mls/hr IV Q12H [facility] Rx#:[id number] Heparin Sodium/Dextrose 25,000 196.2 / 196.2 126.8 / 126.8 units In 500 ml @ 1,200 UNITS/ HR 24 mls/hr IV .[id number] [facility] Rx #:[id number] Magnesium Sulfate / D5w 1 gm In 100 / 100 100 ml @ 50 mls/hr IV ONE ONE Rx#:[id number] Sodium Chloride 0.9% 1,000 ml @ 985 / 985 100 mls/hr IV .Q10H [facility] Rx#: [id number] cefTRIAXone SODIUM 2,000 mg In 70 / 70 Dextrose 5% 50 ml @ 100 mls/hr IV Q24H [facility] Rx#:[id number] Oral 250 / 250 Output: Urine 150 / 750 600 / 750 # Bowel Movements / Other: Other Intake Source NPO # Unmeasured Voids 1 Weight 94 kg 91.3 kg Weight Measurement Method [facility] (4) Hypertension Hypertension type: primary hypertension Qualified Code(s): I10 - Essential (primary) hypertension
[2023-05-05 08:17] LABS: Estimated Average Glucose 131 mg/dl; Hemoglobin A1C 6.2 % (4.5-5.6)
--- NOTE | 2023-05-05 09:02 | Consultation ---
Date of Consultation May 05, 2023 Assessment & Plan (1) Aortoiliac occlusive disease: Pt with known hx of AIOD, having undergone L to R fem fem BPG about [address] Parra d/t R iliac art occlusions. BPG is widely patent and pt has mild disease distal to this. No occlusions noted. Exam demonstrates well perfused extremities and palpable pulses. No indications for vascular surgical intervention at this time. Pt was reassured that his arterial disease did not cause his sx. Advised pt to undergo reeval of his BPG with ultrasound annually. This can be done by his PCP if he so chooses. Please call if needed. History of Present Illness Reason for Consultation: aortoiliac occlusive disease, PAD Attending Physician: Gwen Lucia MD History of Present Illness 78 yo m with hx of HTN, DMII, COPD, BPH, hyperlipidemia, CAD, AIOD and PAD s/p L to R fem fem BPG, lumbosacral radiculopathy, neuropathy, chronic low back pain s/p laminectomy, depression, admitted with BLE numbness/tingling which occurred suddenly last evening around 2200, seen in consultation today for PAD. Pt states he was at home in normal state of health and noted a "pins and needles" sensation to his L foot, extending from his toes to his mid clark. States his leg would not hold him and he fell to the ground. Similar sx occurred in RLE shortly after. All sx resolved currently. States he can ambulate this morning without problem, but mild numb feeling to toes, which is not unusual for him. Denies any recent injury. States he has a spinal cord stimulator in place and chronic back pain. No change in color of his feet. No claudication or rest pain sx prior to this. Denies ALEMAN, fever, chest pain, SOB, abd pain, N/V, other complaints. Arterial US demonstrates mild PAD CTA demonstrates no dissection. Demonstrates patent L to R fem fem BPG, with good inflow and outflow. Allergies Allergy/AdvReac Type Severity Reaction Status Date / Time gabapentin Allergy Unknown Unknown Verified 04/25/22 11:43 duloxetine AdvReac Intermediate Insomnia Verified 04/25/22 11:43 oxycodone AdvReac Intermediate Abdominal Verified 04/25/22 11:43 Discomfort, Vomiting, Headache Home Medications Medication Instructions Recorded Confirmed Type albuterol sulfate 90 mcg/actuation 1 inh inhalation QID PRN Shortness 07/05/21 05/04/23 History aerosol inhaler Of Breath aspirin 81 mg tablet,delayed 81 mg PO QAM 07/05/21 05/04/23 History release buspirone 5 mg tablet 5 mg PO BID 07/05/21 05/04/23 History cilostazol 100 mg tablet 100 mg PO BID 07/05/21 05/04/23 History diclofenac sodium 1 % topical gel 2 g topical BID PRN Pain 07/05/21 05/04/23 History hydrocodone 10 mg-acetaminophen 1 tab PO Q6H PRN Pain 07/05/21 05/04/23 History 325 mg tablet metoprolol succinate 25 mg 12.5 mg PO QAM 07/05/21 05/04/23 History tablet,extended release 24 hr mirtazapine 30 mg tablet 30 mg PO HS 07/05/21 05/04/23 History multivitamin 1 tab PO QAM 07/05/21 05/04/23 History pantoprazole 20 mg tablet,delayed 40 mg PO BID 07/05/21 05/04/23 History release pregabalin 150 mg capsule 150 mg PO BID 07/05/21 05/04/23 History rosuvastatin 40 mg tablet 40 mg PO HS 07/05/21 05/04/23 History tamsulosin 0.4 mg capsule 0.4 mg PO HS 07/05/21 05/04/23 History theophylline 400 mg 400 mg PO HS 07/05/21 05/04/23 History tablet,extended release 24 hr tiotropium bromide 2.5 2 inh inhalation QA 07/05/21 05/04/23 History mcg/actuation mist for inhalation ascorbic acid (vitamin C) 1,000 mg 1 g PO QAM 04/19/22 05/04/23 History tablet (Vitamin C) cyanocobalamin (vitamin B-12) 1,000 mcg PO QAM 04/19/22 05/04/23 History 1,000 mcg tablet (Vitamin B-12) lisinopril 5 mg tablet 5 mg PO HS 04/19/22 05/04/23 History amlodipine 5 mg tablet 5 mg PO DAILY 05/04/23 05/04/23 History ezetimibe 10 mg tablet 10 mg PO DAILY 05/04/23 05/04/23 History fluticasone propionate 50 1 spray intranasal BID PRN Nasal 05/04/23 05/04/23 History mcg/actuation nasal Congestion spray,suspension hydroxyzine HCl 25 mg tablet 25 mg PO HS PRN Insomnia 05/04/23 05/04/23 History metformin 500 mg tablet 500 mg PO BID 05/04/23 05/04/23 History Patient History Medical History Diabetes mellitus, type II Hypertension Chronic back pain BPH (benign prostatic hyperplasia) PVD (peripheral vascular disease) Prediabetes diet controlled Hearing deficit Depression History of COVID-19 diagnosed 02/2021--mild symptoms, no symptoms now Chronic obstructive pulmonary disease inhalers daily/prn Lumbosacral radiculopathy Idiopathic polyneuropathy HLD (hyperlipidemia) Coronary atherosclerosis of [place] coronary vessel Surgical History History of femoropopliteal bypass right total---Dr. Parra @ [facility] 06/1998 History of colonoscopy History of tooth extraction all teeth removed History of sinus surgery Family History Other No family history of adverse response to anesthesia Social History Smoking Status: Unknown if ever smoked Second Hand Exposure: No; Do You Dip or Chew Tobacco: No; Hx Alcohol Use: No Hx Substance Use: No Preferred Language: Bermudian Communication Ability: Effective Patient Portal Representative Required: No Beliefs That Will Affect Care: None marital status: / Current Living Situation: Alone How many Children do You have: 2 Other Information That Helps Us Care for You: No Feels Safe at Home: Yes Safety Concerns: Feels Safe At This Time Assistive Devices: Cane Review of Systems Review of Systems: All systems reviewed & are unremarkable except as noted in HPI & below Physical Exam Constitutional: WD/WN, vitals as above cooperative and comfortable; not in distress ENMT: Ears: no hearing impairment Neck: trachea midline Respiratory: normal respiratory effort, lungs clear to auscultation Auscultation: + diminished lung sounds Cardiovascular: Rate/Rhythm: regular rate and regular rhythm (with PAC vs PVC) Vessels: femoral pulses present (+2 BLE), posterior tibial pulses present (+2 BLE), dorsalis pedis pulses present (+2 RLE, +1 LLE) and radial pulses present; + abnormal peripheral pulses Extremities: normal capillary refill; no edema Gastrointestinal (Abdomen): Inspection/Auscultation: abdomen normal to inspection and normal bowel sounds Percussion/Palpation: abdomen soft; abdomen nontender Musculoskeletal: no cyanosis or clubbing, extremities motor strength 5/5 Skin: no rashes, warm and dry Neurologic: moves all extremities and awake; no focal motor deficits and not confused Psychiatric: A+Ox3, euthymic affect Results & Data Vital Signs (Past 12 Hours) Vital Signs Temp Pulse Pulse Resp BP Pulse Ox O2 Del Method 05/05/23 07:38 36.9 C 67 17 131/67 93 Room Air 05/05/23 03:04 36.7 C 97 H 16 148/69 H 94 Room Air 05/04/23 23:00 97 H 05/04/23 22:59 37.2 C 98 H 18 156/77 H 98 Room Air
[2023-05-05] MEDS: ASPIRIN 81 MG ECTAB PO SCH (09:26)
[2023-05-05] MEDS: MULTIVITAMIN TAB PO SCH (09:28)
[2023-05-05] MEDS: UMECLIDINIUM BROMIDE 62.5MCG/BLISTER 7 PUFFS/INHALER INH SCH (09:29)
[2023-05-05] MEDS: EZETIMIBE 10 MG TAB PO SCH (09:29)
[2023-05-05] MEDS: ASCORBIC ACID 500 MG TAB PO SCH (09:30)
[2023-05-05] MEDS: CYANOCOBALAMIN (B-12) 500 MCG TABLET PO SCH (09:30)
[2023-05-05] MEDS: amLODIPine BESYLATE 5 MG TAB PO SCH (09:31)
[2023-05-05] MEDS: FLUTICASONE PROPIONATE NA SPR 16 GM BTL NAE PRN (09:31)
[2023-05-05] MEDS: METOPROLOL SUCC 25MG EXT REL TAB PO SCH ×2 (09:41→20:11)
--- NOTE | 2023-05-05 11:06 | Hospitalist Progress Note ---
Date of Service May 05, 2023 Assessment & Plan (1) Paresthesia of left lower extremity: (2) PVD (peripheral vascular disease): (3) Elevated troponin: Plan: 78-year-old male with PMH of peripheral vascular disease, dyslipidemia, BPH, lumbar spine stenosis and other medical problems listed below who presents with new numbness in left lower extremity yesterday. LLE with decreased sensation and increased weakness from the day prior to presentation H/o PVD with fem-fem bypass [address] Parra, per patient LLE arterial duplex with focal area of hemodynamically significant stenosis within the mid left superficial femoral artery. No evidence for arterial occlusion within the left lower extremity Abdominal pelvic CT angio noted occluded right common iliac artery and right external iliac with reconstitution, left to right femoral femoral bypass graft widely patent. Vascular surgery evaluation and recommendations appreciated. Brain MRI pending. According to RN, patient's brother is getting information about patient's spinal stimulator. MRI also working on figuring that out prior to getting a brain MRI. Will follow this up HS troponin 219 -> 254_>250, No EKG changes or chest pain. Elevated troponin is flat. Unclear if demand ischemia or chronically elevated TTE report noted technically difficult study, EF of 60 to 65%, grade 1 diastolic dysfunction, moderate concentric LVH, LV wall motion is normal, aortic valvular sclerosis is moderate without significant valvular stenosis. Plisse Machine Operator evaluation and recommendations noted Will complete 24h of IV hep gtt and stop per Cards Freq PVCs on tele. Home toprol XL increased to 25mg BID Continue aspirin, statin, cilostazol (4) Lumbosacral radiculopathy: (5) Chronic back pain: Plan: Significant history of lumbar radiculopathy Lumbar spine x-ray noted degenerative disc disease with moderate to severe disc space narrowing at L3-L4, moderate narrowing at L4-L5 and L5-S1. Reviewed old lumbar spine MRI from 2021. Moderate to severe L3-L4 narrowing noted at the time. Will appreciate Ortho spine surgery evaluation and recommendation Continue home pain regimen with hydrocodone-acetaminophen, Lyrica (6) Pneumonia: Plan: Recent RSV infection 3 weeks ago Still coughing CXR with lower lung predominant reticulonodular interstitial thickening. This favors an infectious process. Pulmonary edema could appear similar. Radiographic follow-up to ensure resolution is recommended Procal elevated at 25 Continue ceftriaxone/doxy for CAP coverage Continue home inhalers PRN antitussives Check c diff if diarrhea persists. (7) Hypertension: Plan: Continue home amlodipine, lisinopril HS, Toprol has been increased as above (8) Diabetes mellitus, type II: Plan: Hba1c is 6.2 Hold home agents SSI while in-patient BSG AC HS (9) Chronic obstructive pulmonary disease: Plan: Stable Continue home inhalers (10) Depression: Plan: H/o depression and anxiety. Chronic, stable. Continue Buspar, mirtazapine, hydroxyzine HS PRN (11) BPH (benign prostatic hyperplasia): Plan: Continue Flomax Abnormal CT abd/pelvis Bulbous appearance to the tip the appendix which has slightly improved. No evidence for acute appendicitis. An underlying lesion at the appendiceal tip remains the diagnosis of exclusion. Nonemergent surgical consultation recommended DVT Ppx: IV heparin Code status: CONDITIONAL CODE. YES to CPR/cardiac defibrillation, NO to intubation or artificial airway PCP: JIGNESH Yates spent a total of 50 minutes coordinating, documenting, and providing care for this patient excluding time spent in the performance of separately billed services. Admission and Anticipated Discharge Date Admission Date: May 04, 2023 Subjective Patient seen and examined Reports left leg numbness, described it as 'the leg feels asleep' and weakness Reports cough Reports he started having diarrhea only after admission yesterday Denied any chest pain, shortness of breath, nausea, vomiting Reports only abd pain with coughing episodes Denied dysuria, freq, urgency Physical Exam Constitutional: + well hydrated; no acute distress Eyes: PERRL, conjunctivae normal, anicteric sclerae ENMT: external ear and nose normal, oropharynx normal Respiratory: normal respiratory effort, lungs clear to auscultation Cardiovascular: Rate/Rhythm: regular rate and regular rhythm S1 S2 Gastrointestinal (Abdomen): normal bowel sounds, soft, nontender, no hepatosplenomegaly Musculoskeletal: No pedal edema Right knee erythema Neurologic: PERRL, EOMI, accommodation nl, no face palsy, no dysarthria Left leg sensory deficits Power is normal Psychiatric: A+Ox3, euthymic affect Results & Data Results & Data Vital Signs (Past 12 Hours) Vital Signs Temp Pulse Resp BP Pulse Ox O2 Del Method 05/05/23 07:38 36.9 C 67 17 131/67 93 Room Air 05/05/23 03:04 36.7 C 97 H 16 148/69 H 94 Room Air Laboratory Results Abnormal lab results 05/04/23 05/04/23 05/04/23 Range/Units 13:00 17:00 21:42 WBC (4.8-10.8) K/ul RBC (4.70-6.10) M/uL Hgb (14.0-18.0) g/dl Hct (42.0-52.0) % RDW Std Deviation (36.4-46.3) fL RDW Coeff of Chauncey (11.5-14.5) % Plt Count (130-400) K/uL Heparin Anti-Xa, Unfract (0.3-0.7) IU/ml Chloride (98-107) mmol/L Carbon Dioxide (21-32) mmol/L Anion Gap (3-11) Glucose (70-99(Fasting)) mg/dl POC Glucose 128 H (70-99) mg/dl Hemoglobin A1c (4.5-5.6) % Troponin I High Sens 254.7 H* (0-20) pg/ml Procalcitonin 25.40 H (0-0.5) ng/ml 05/04/23 05/05/23 05/05/23 Range/Units 22:33 00:27 06:21 WBC 11.51 H (4.8-10.8) K/ul RBC 4.25 L (4.70-6.10) M/uL Hgb 12.5 L (14.0-18.0) g/dl Hct 36.3 L (42.0-52.0) % RDW Std Deviation 47.7 H (36.4-46.3) fL RDW Coeff of Chauncey 15.4 H (11.5-14.5) % Plt Count 109 L (130-400) K/uL Heparin Anti-Xa, Unfract 0.81 H* (0.3-0.7) IU/ml Chloride 111 H (98-107) mmol/L Carbon Dioxide 18 L (21-32) mmol/L Anion Gap 12 H (3-11) Glucose 111 H (70-99(Fasting)) mg/dl POC Glucose (70-99) mg/dl Hemoglobin A1c 6.2 H (4.5-5.6) % Troponin I High Sens 250.8 H* 202.5 H* (0-20) pg/ml Procalcitonin (0-0.5) ng/ml 05/05/23 05/05/23 Range/Units 07:10 11:43 WBC (4.8-10.8) K/ul RBC (4.70-6.10) M/uL Hgb (14.0-18.0) g/dl Hct (42.0-52.0) % RDW Std Deviation (36.4-46.3) fL RDW Coeff of Chauncey (11.5-14.5) % Plt Count (130-400) K/uL Heparin Anti-Xa, Unfract (0.3-0.7) IU/ml Chloride (98-107) mmol/L Carbon Dioxide (21-32) mmol/L Anion Gap (3-11) Glucose (70-99(Fasting)) mg/dl POC Glucose 124 H 109 H (70-99) mg/dl Hemoglobin A1c (4.5-5.6) % Troponin I High Sens (0-20) pg/ml Procalcitonin (0-0.5) ng/ml (7) Hypertension Hypertension type: primary hypertension Qualified Code(s): I10 - Essential (primary) hypertension
--- NOTE | 2023-05-05 11:49 | Electrocardiogram Report ---
Test Reason : Blood Pressure : / mmHG Vent. Rate : 103 BPM Atrial Rate : 103 BPM P-R Int : 144 ms QRS Dur : 084 ms QT Int : 338 ms P-R-T Axes : 070 054 070 degrees QTc Int : 442 ms Sinus tachycardia with frequent Premature ventricular complexes Otherwise normal ECG When compared with ECG of 04-MAY-2023 12:45, No significant change was found Confirmed by Amraan Aleman ([id number]) on 05/05/2023 11:49:21 AM Referred By: REFERRED SELF Confirmed By:Armaan Aleman
[2023-05-05] MEDS: METOPROLOL SUCC 25MG EXT REL TAB PO ONE (12:44)
[2023-05-05] MEDS: guaiFENesin SUGAR FREE 100 MG/5 ML UDC PO PRN (14:31)
--- NOTE | 2023-05-05 17:01 | Orthopedic Consultation ---
Date of Service May 05, 2023 History of Present Illness Reason for Consultation: . Left leg numbness. Requesting Physician: . Attending Physician: Gwen Lucia MD 78-year-old male with PMH of peripheral vascular disease, dyslipidemia, BPH and other medical problems listed below who presents with new numbness in left lower extremity on May 03. Patient does not recall any inciting incident, it started about mid lower leg prison between the knee and the ankle. He was evaluated and admitted on the to [facility], has undergone evaluation with vascular. In talking with the patient, he notes he has minimal to no back pain, and no symptoms radiating from the lumbar spine or upper leg to the lower leg. He states that the numbness in the left leg is also present to a much more minimal degree in the right leg, but it appears to be potentially increasing. He also relates that the numbness in his left lower leg appears to be migrating distally to the foot and ankle region over the day today. Patient also has a history of a spinal cord stimulator placed, Unda with paddle placed by Dr. Armas on April 25, 2022. Exam reveals the patient to be indicating the area numbness as noted, sensory to light touch reveals his sensation in the left leg to be intact from the knee down approaching the ankle. It is decreased around the ankle and midfoot region toward the toes, the patient commented to me that he feels it is moving distally. On the right leg similar but minimal changes. He has intact strength for EHL ankle plantar dorsiflexion knee flexion extension. He has an intact straight leg raise exam with no notable symptoms and no back pain. Review of CT scan images of the abdomen and pelvis from May 04, 2023, this my separate interpretation, this reveals the degenerative changes at L3-4 with loss of disc space height some more minimal changes at the adjacent levels, no significant central or foraminal stenosis is noted. The paddle implant appears to be in proper position extending from T9-T10 extending from left to central, unchanged from positioning when the device was placed. This was reviewed also in conjunction with the prior lumbar MRI from June 16, 2021 which shows relatively unremarkable disc levels from the lower thoracic spine through the lumbar spine, only with the disc degeneration at L3-4 and no significant foraminal stenosis. ABDOMEN AND PELVIS CT WITHOUT CONTRAST May 04, 2023: HISTORY: elevated LFT/bili, eval lumbar spine LL numbness TECHNIQUE: Multiaxial CT images of the abdomen and pelvis were performed without contrast. A dose lowering technique was utilized adhering to the principles of ALARA. COMPARISON STUDY: Abdomen and pelvis CT 07/05/2021. FINDINGS: Emphysema noted at the lung bases. There are patchy groundglass densities within the lung bases most pronounced on the right. This may represent a pneumonia. No pneumoperitoneum. No pneumatosis. No acute fractures identified. Spinal stimulator leads terminate at the T9 level. The L3-L4 vertebral bodies are fused. There is a femorofemoral bypass graft again noted. 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 Hepatic steatosis. The unenhanced gallbladder, pancreas, spleen, and adrenal glands are unremarkable. Stable bilateral renal hypodense lesions. These are incompletely characterized on this noncontrast study but statistically represent cysts. No renal or ureteral calculi. No hydronephrosis. Calcified plaque within the normal caliber abdominal aorta. No retroperitoneal or pelvic lymphadenopathy. No pelvic free fluid. The bladder is moderately distended. No bladder wall thickening. Suboptimal evaluation for bowel pathology due to the lack of intravenous and oral contrast. However, there is no definite bowel wall thickening or obstruction. Colonic diverticulosis. No evidence for acute diverticulitis. Bulbo us appearance to the tip of the appendix best seen on image 231 measuring 9 mm. This previously measured 13 mm. No evidence for acute appendicitis. IMPRESSION: 1. No renal or ureteral stones. No hydronephrosis. 2. No definite bowel wall thickening or obstruction. 3. Colonic diverticulosis. No evidence for acute diverticulitis. 4. Patchy bibasilar densities have progressed and may represent a pneumonia. 5. Bulbous appearance to the tip the appendix which has slightly improved. No evidence for acute appendicitis. An underlying lesion at the appendiceal tip remains the diagnosis of exclusion. Nonemergent surgical consultation recommended. 6. Additional findings as described above. Impression: 2 days from development of left leg numbness tingling, more minimal symptoms in the right leg, CT scan images from yesterday relatively unremarkable and prior MRI from 2 years ago relatively unremarkable. Plan: Today at this time as the patient is not having any significant back pain or radicular type symptoms, an MRI could be considered to rule out the spine as a source of the symptoms, but the CT scan is not revealing any findings at this point. The spinal stimulator paddle placed a year ago appears to be unchanged in this position and I do not think this is contributing to the patient's symptoms. My understanding is he is to undergo a brain MRI, and certainly if a lumbar MRI wants to be pursued this would be a reasonable test to evaluate for any there are compressive symptoms from the spine, the spinal cord stimulator device should be compatible with MRI imaging. MR lumbar spine wo con 05/06/23 CLINICAL HISTORY: 78 years-old Male with Assess DDD/ Lumbosacral radiculopathy. Acute on chronic low back pain with left lower extremity radicular symptoms COMPARISON: 06/16/2021 TECHNIQUE: Multiplanar, multi sequence MRI of the lumbar spine was performed without intravenous contrast. FINDINGS: Study is mildly motion degraded. The conus medullaris terminates at T12. Signal within the imaged thoracic spinal cord is unremarkable. 9 mm S2 Tarlov cyst. No acute fracture, subluxation, significant bone marrow edema or endplate erosion. The public relations account executive localizer images demonstrate no gross extraspinal abnormality. T2 hyperintense lesions of the left kidney measuring up to 6.4 cm suggestive of probable cysts. T12-L1: Mild spondylitic spurring and facet arthrosis. No central canal or neural foraminal narrowing. Unchanged. L1-L2: Mild spondylitic spurring and facet arthrosis. Tiny posterior annular disc bulge. Central canal is patent. Mild narrowing of the inferior neural foramina bilaterally. Unchanged. L2-L3: Mild spondylitic spurring with ligamentum flavum thickening and facet arthrosis. The central canal and right neural foramen are patent. Mild left foraminal stenosis is unchanged. L3-L4: Moderate to severe vertebral disc space narrowing with degenerative partial bony fusion. Moderate spondylitic spurring with small posterior disc osteophyte complex and moderate facet arthrosis. The central canal is patent. Mild right with mild to moderate left foraminal narrowing has slightly progressed. L4-L5: Moderate intervertebral disc space narrowing. Moderate spondylitic spurring with circumferential annular disc bulge/disc osteophyte complex. Ligamentum flavum thickening with mo derate to severe facet arthrosis. Flattening of the ventral thecal sac without significant central canal stenosis. Moderate left with mild to moderate right foraminal stenosis is unchanged. rL5-S1: Mild spondylitic spurring with tiny posterior annular disc bulge. Mo derate facet arthrosis. No central canal or neural foraminal narrowing. Unchanged. IMPRESSION: 1. Multilevel discogenic degeneration with spondylitic spurring and facet arthrosis as detailed above results in multilevel foraminal stenosis. There is no significant change compared to the study from 06/16/2021. 2. No significant central canal narrowing. 3. No acute fracture or significant bone marrow edema. MRI reviewed, lumbar spine not the cause of the numbness. Allergies Allergy/AdvReac Type Severity Reaction Status Date / Time gabapentin Allergy Unknown Unknown Verified 04/25/22 11:43 duloxetine AdvReac Intermediate Insomnia Verified 04/25/22 11:43 oxycodone AdvReac Intermediate Abdominal Verified 04/25/22 11:43 Discomfort, Vomiting, Headache Home Medications Medication Instructions Recorded Confirmed Type albuterol sulfate 90 mcg/actuation 1 inh inhalation QID PRN Shortness 07/05/21 05/04/23 History aerosol inhaler Of Breath aspirin 81 mg tablet,delayed 81 mg PO QAM 07/05/21 05/04/23 History release buspirone 5 mg tablet 5 mg PO BID 07/05/21 05/04/23 History cilostazol 100 mg tablet 100 mg PO BID 07/05/21 05/04/23 History diclofenac sodium 1 % topical gel 2 g topical BID PRN Pain 07/05/21 05/04/23 History hydrocodone 10 mg-acetaminophen 1 tab PO Q6H PRN Pain 07/05/21 05/04/23 History 325 mg tablet metoprolol succinate 25 mg 12.5 mg PO QAM 07/05/21 05/04/23 History tablet,extended release 24 hr mirtazapine 30 mg tablet 30 mg PO HS 07/05/21 05/04/23 History multivitamin 1 tab PO QAM 07/05/21 05/04/23 History pantoprazole 20 mg tablet,delayed 40 mg PO BID 07/05/21 05/04/23 History release pregabalin 150 mg capsule 150 mg PO BID 07/05/21 05/04/23 History rosuvastatin 40 mg tablet 40 mg PO HS 07/05/21 05/04/23 History tamsulosin 0.4 mg capsule 0.4 mg PO HS 07/05/21 05/04/23 History theophylline 400 mg 400 mg PO HS 07/05/21 05/04/23 History tablet,extended release 24 hr tiotropium bromide 2.5 2 inh inhalation QAM 07/05/21 05/04/23 History mcg/actuation mist for inhalation ascorbic acid (vitamin C) 1,000 mg 1 g PO QAM 04/19/22 05/04/23 History tablet (Vitamin C) cyanocobalamin (vitamin B-12) 1,000 mcg PO QAM 04/19/22 05/04/23 History 1,000 mcg tablet (Vitamin B-12) lisinopril 5 mg tablet 5 mg PO HS 04/19/22 05/04/23 History amlodipine 5 mg tablet 5 mg PO DAILY 05/04/23 05/04/23 History ezetimibe 10 mg tablet 10 mg PO DAILY 05/04/23 05/04/23 History fluticasone propionate 50 1 spray intranasal BID PRN Nasal 05/04/23 05/04/23 History mcg/actuation nasal Congestion spray,suspension hydroxyzine HCl 25 mg tablet 25 mg PO HS PRN Insomnia 05/04/23 05/04/23 History metformin 500 mg tablet 500 mg PO BID 05/04/23 05/04/23 History Past Med/Surg History Medical History (Updated 05/05/23 @ 09:[address]) Diabetes mellitus, type II Hypertension Chronic back pain BPH (benign prostatic hyperplasia) PVD (peripheral vascular disease) Hearing deficit Depression History of COVID-19 diagnosed 02/2021--mild symptoms, no symptoms now Chronic obstructive pulmonary disease inhalers daily/prn Lumbosacral radiculopathy Idiopathic polyneuropathy HLD (hyperlipidemia) Coronary atherosclerosis of [place] coronary vessel Surgical History History of femoropopliteal bypass right total---Dr. Parra @ [facility] 06/1998 History of colonoscopy History of tooth extraction all teeth removed History of sinus surgery Family History Other No family history of adverse response to anesthesia Social History Smoking Status: Unknown if ever smoked Second Hand Exposure: No; Do You Dip or Chew Tobacco: No; Hx Alcohol Use: No Hx Substance Use: No Preferred Language: Nicaraguan Communication Ability: Effective Bicycle Ii Assembler Required: No Beliefs That Will Affect Care: None marital status: / Current Living Situation: Alone How many Children do You have: 2 Other Information That Helps Us Care for You: No Feels Safe at Home: Yes Safety Concerns: Feels Safe At This Time Assistive Devices: Cane Review of Systems All systems reviewed & are unremarkable except as noted in HPI & below. Physical Exam . Results & Data Results & Data Laboratory Results . Diagnostic Findings . PG Care Time/CCT Total # of Minutes Spent Total Time Spent with Patient: Total time spent is greater than 50% in coordination of care (as documented) at patient's floor/unit and/or counseling patient: Coding Level of Care Code 58032 IN/OBS CONSULT LVL 3,45M
[2023-05-05] MEDS: GADOBUTROL 65ML VIAL IV ONE (17:37)
--- NOTE | 2023-05-05 18:04 | Magnetic Resonance Report ---
Brain MRI WITH AND WITHOUT CONTRAST HISTORY: L>R leg weakness TECHNIQUE: Multiplanar multisequence MRI of the brain was performed both before and after the intrave nous administration of contrast. COMPARISON STUDY: Head CT 05/04/2023. FINDINGS: No areas restricted diffusion to suggest acute infarction. Incidental note is made of a par tially empty sella. Otherwise, the midline structures are intact. The major vascular flow-voids at th e skull base are well-maintained. There is no intracranial mass, hematoma, or midline shift. There ar e few punctate old lacunar infarcts seen within the cerebellar hemispheres. The orbits are unremarkab le. Postoperative changes seen within the paranasal sinuses. Complete opacification of the right maxi llary sinus. This appears to contain enhancing 2.3 x 2.2 cm irregular polyp/lesion. This is best seen on axial image 6. Mild to moderate atrophic changes again noted. There is a metallic artifact within the left frontal scalp. There are few punctate foci of T2 hyperintensity seen within the periventric ular white matter. These are nonspecific but favor mild microvascular ischemic change. Stable ventric ular enlargement. This favors central volume loss. Postcontrast sequences show no areas of abnormal e nhancement within the brain. IMPRESSION: 1. No acute infarct or intracranial hemorrhage. 2. Stable ventricular prominence. This favors central volume loss. Normal pressure hydrocephalus is c onsidered less likely. 3. A 2.3 x 2.2 cm right maxillary sinus polyp/lesion. Follow-up nonemergent ENT consultation recommen ded for further evaluation. 4. Additional findings as described above. ACT 112: Negative or not required by law. Electronically signed by: Kannan Gutierrez M.D. 05/05/2023 6:01 PM
[2023-05-05] MEDS: HYDROcodone/ACETAMINOPHEN 10/325 TAB PO PRN (18:22)
[2023-05-05] MEDS: ONDANSETRON INJ 2 MG/ML 2 ML VIAL IV PRN (18:30)
[2023-05-05] MEDS: DOXYCYCLINE HYCLATE 100 MG CAP PO SCH (20:11)
[2023-05-05] MEDS ORDERED: METOPROLOL SUCC 25MG EXT REL TAB PO SCH (21:00)
[2023-05-05] MEDS: HYDROcodone/HOMATROPINE SYRUP 5MG/1.5MG 5ML UDP PO PRN (23:57)
[2023-05-06 08:05] LABS: Hematocrit (blood only) 29.7 % (42.0-52.0); Hemoglobin 10.1 g/dl (14.0-18.0); Mean Corpuscular Hemoglobin 29.1 pg (25.0-34.0); Mean Corpuscular Volume 85.6 fL (80.0-100.0); Mean Platelet Volume 9.9 fL (9.4-12.4); Nucleated RBC # (auto) 0.02 K/uL (0.00-0.12); Nucleated RBC % (auto) 0.2 %; Platelet Count 122 K/uL (130-400); RDW Coefficient of Variation 15.3 % (11.5-14.5); RDW Standard Deviation 47.9 fL (36.4-46.3); Red Blood Count 3.47 M/uL (4.70-6.10); White Blood Count 9.94 K/ul (4.8-10.8)
[2023-05-06 08:09] LABS: BUN Creatinine Ratio 7.7 (10-20); Calcium 7.7 mg/dl (8.6-10.3); Creatinine Clr Calc Pharmacy 50.3 ml/min; Est GFR (Non-African American) 52.6 ml/min
[2023-05-06 08:18] LABS: Magnesium 1.8 mg/dl (1.7-2.4); Phosphorus 1.3 mg/dl (2.5-4.9)
[2023-05-06] MEDS ORDERED: POTASSIUM PHOS 3 MMOL/1 ML INFUSION IV STA (08:24)
[2023-05-06 08:44] LABS: ANTI-Xa, LMWH(Low Molecular Wt 0.38 IU/ML (< 0.10)
[2023-05-06] MEDS: POT PHOSPHATE MONOBASIC W/ SOD TAB PO STA (09:20)
[2023-05-06] MEDS: POTASSIUM PHOSPHATE 30 MMOL in SODIUM CHLORIDE 0.9% 500 ML IV ONE (10:22)
--- NOTE | 2023-05-06 10:49 | Magnetic Resonance Report ---
MR lumbar spine wo con CLINICAL HISTORY: 78 years-old Male with Assess DDD/ Lumbosacral radiculopathy. Acute on chronic low back pain with left lower extremity radicular symptoms COMPARISON: 06/16/2021 TECHNIQUE: Multiplanar, multi sequence MRI of the lumbar spine was performed without intravenous cont rast. FINDINGS: Study is mildly motion degraded. The conus medullaris terminates at T12. Signal within the imaged tho racic spinal cord is unremarkable. 9 mm S2 Tarlov cyst. No acute fracture, subluxation, significant b one marrow edema or endplate erosion. The assistant center manager localizer images demonstrate no gross extraspinal abn ormality. T2 hyperintense lesions of the left kidney measuring up to 6.4 cm suggestive of probable cy sts. T12-L1: Mild spondylitic spurring and facet arthrosis. No central canal or neural foraminal narrowing . Unchanged. L1-L2: Mild spondylitic spurring and facet arthrosis. Tiny posterior annular disc bulge. Central bryanna l is patent. Mild narrowing of the inferior neural foramina bilaterally. Unchanged. L2-L3: Mild spondylitic spurring with ligamentum flavum thickening and facet arthrosis. The central c anal and right neural foramen are patent. Mild left foraminal stenosis is unchanged. L3-L4: Moderate to severe vertebral disc space narrowing with degenerative partial bony fusion. Moder ate spondylitic spurring with small posterior disc osteophyte complex and moderate facet arthrosis. T he central canal is patent. Mild right with mild to moderate left foraminal narrowing has slightly pr ogressed. L4-L5: Moderate intervertebral disc space narrowing. Moderate spondylitic spurring with circumferenti al annular disc bulge/disc osteophyte complex. Ligamentum flavum thickening with mo derate to severe facet arthrosis. Flattening of the ventral thecal sac without significant central canal stenosis. Mod erate left with mild to moderate right foraminal stenosis is unchanged. rL5-S1: Mild spondylitic spurring with tiny posterior annular disc bulge. Moderate facet arthrosis. N o central canal or neural foraminal narrowing. Unchanged. IMPRESSION: 1. Multilevel discogenic degeneration with spondylitic spurring and facet arthrosis as detailed above results in multilevel foraminal stenosis. There is no significant change compared to the study from 06/16/2021. 2. No significant central canal narrowing. 3. No acute fracture or significant bone marrow edema. ACT 112: Negative or not required by law. The above report was generated using voice recognition software. It may contain grammatical, syntax o r spelling errors. Electronically signed by: Pan Stratton M.D. 05/06/2023 10:47 AM
[2023-05-06] MEDS: HEPARIN SOD 5,000 UNIT/0.5 ML VIAL SQ SCH (12:13)
[2023-05-06] MEDS: guaiFENesin 600 MG TABCR PO SCH (13:40)
[2023-05-06] MEDS: BENZONATATE 100 MG CAPSULE PO PRN (13:41)
--- NOTE | 2023-05-06 13:54 | Hospitalist Progress Note ---
Date of Service May 06, 2023 Assessment & Plan (1) Paresthesia of left lower extremity: (2) PVD (peripheral vascular disease): (3) Elevated troponin: Plan: 78-year-old male with PMH of peripheral vascular disease, dyslipidemia, BPH, lumbar spine stenosis and other medical problems listed below who presents with new numbness in left lower extremity yesterday. LLE with decreased sensation and increased weakness from the day prior to presentation H/o PVD with fem-fem bypass [address] Parra, per patient LLE arterial duplex with focal area of hemodynamically significant stenosis within the mid left superficial femoral artery. No evidence for arterial occlusion within the left lower extremity Abdominal pelvic CT angio noted occluded right common iliac artery and right external iliac with reconstitution, left to right femoral femoral bypass graft widely patent. Vascular surgery evaluation and recommendations appreciated. Brain MRI did not show acute infarct HS troponin 219 -> 254->250, No EKG changes or chest pain. Elevated troponin is flat. Unclear if demand ischemia or chronically elevated TTE report noted technically difficult study, EF of 60 to 65%, grade 1 diastolic dysfunction, moderate concentric LVH, LV wall motion is normal, aortic valvular sclerosis is moderate without significant valvular stenosis. 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 Home toprol XL increased to 25mg BID Continue aspirin, statin, cilostazol LE paresthesia resolving per patient (4) Lumbosacral radiculopathy: (5) Chronic back pain: Plan: Significant history of lumbar radiculopathy Lumbar spine x-ray noted degenerative disc disease with moderate to severe disc space narrowing at L3-L4, moderate narrowing at L4-L5 and L5-S1. Reviewed old lumbar spine MRI from 2021. Moderate to severe L3-L4 narrowing noted at the time. Lumbar MRI today's report did not show any significant change from prior Continue home pain regimen with hydrocodone-acetaminophen, Lyrica (6) Pneumonia: Plan: Recent RSV infection 3 weeks ago CXR with lower lung predominant reticulonodular interstitial thickening. This favors an infectious process. Pulmonary edema could appear similar. Radiographic follow-up to ensure resolution is recommended Procal elevated at 25 on 05/04/23. Will recheck in AM Continue ceftriaxone/doxy for CAP coverage Continue home inhalers PRN antitussives (7) Hypertension: Plan: Continue home amlodipine, lisinopril HS, Toprol has been increased as above (8) Diabetes mellitus, type II: Plan: Hba1c is 6.2 Hold home agents SSI while in-patient BSG AC HS (9) Chronic obstructive pulmonary disease: Plan: Stable Continue home inhalers (10) Depression: Plan: H/o depression and anxiety. Chronic, stable. Continue Buspar, mirtazapine, hydroxyzine HS PRN (11) BPH (benign prostatic hyperplasia): Plan: Continue Flomax Abnormal CT abd/pelvis Bulbous appearance to the tip the appendix which has slightly improved. No evidence for acute appendicitis. An underlying lesion at the appendiceal tip remains the diagnosis of exclusion. Nonemergent surgical consultation recommended PT/OT eval Hypokalemia and hypophosphatemia Replete and monitor DVT Ppx: Hep Sq Code status: CONDITIONAL CODE. YES to CPR/cardiac defibrillation, NO to intubation or artificial airway PCP: JIGNESH Yates spent a total of 50 minutes coordinating, documenting, and providing care for this patient excluding time spent in the performance of separately billed se rvices. Admission and Anticipated Discharge Date Admission Date: May 04, 2023 Subjective Patient seen and examined Reports left leg numbness is almost resolved Still reports persistent cough Reports diarrhea had stopped Reports generalized weakness Denied any chest pain, shortness of breath, nausea, vomiting, abd pain Denied dysuria, freq, urgency Physical Exam Constitutional: + well hydrated; no acute distress Eyes: PERRL, conjunctivae normal, anicteric sclerae ENMT: external ear and nose normal, oropharynx normal Respiratory: normal respiratory effort, lungs clear to auscultation Cardiovascular: Rate/Rhythm: regular rate and regular rhythm S1 S2 Gastrointestinal (Abdomen): normal bowel sounds, soft, nontender, no hepatosplenomegaly Musculoskeletal: Equal power in both limbs No pedal edema Neurologic: PERRL, EOMI, accommodation nl, no face palsy, no dysarthria No sensory deficits Psychiatric: A+Ox3, euthymic affect Results & Data Results & Data Vital Signs (Past 12 Hours) Vital Signs Temp Pulse Pulse Resp BP Pulse Ox O2 Del Method 05/06/23 10:42 37.3 C 94 H 19 129/63 93 Room Air 05/06/23 08:00 98 H 05/06/23 08:00 Room Air 05/06/23 07:25 36.9 C 101 H 22 117/67 90 Room Air 05/06/23 03:14 36.8 C 93 H 20 122/66 92 Room Air Laboratory Results Abnormal lab results 05/05/23 05/06/23 05/06/23 Range/Units 20:40 06:39 07:28 RBC 3.47 L (4.70-6.10) M/uL Hgb 10.1 L (14.0-18.0) g/dl Hct 29.7 L (42.0-52.0) % RDW Std Deviation 47.9 H (36.4-46.3) fL RDW Coeff of Chauncey 15.3 H (11.5-14.5) % Plt Count 122 L (130-400) K/uL Potassium 3.0 L (3.5-5.1) mmol/L Chloride 113 H (98-107) mmol/L Carbon Dioxide 19 L (21-32) mmol/L BUN/Creatinine Ratio 7.7 L (10-20) Glucose 108 H (70-99(Fasting)) mg/dl POC Glucose 150 H 146 H (70-99) mg/dl Calcium 7.7 L (8.6-10.3) mg/dl Phosphorus 1.3 L* (2.5-4.9) mg/dl 05/06/23 05/06/23 Range/Units 11:24 16:28 RBC (4.70-6.10) M/uL Hgb (14.0-18.0) g/dl Hct (42.0-52.0) % RDW Std Deviation (36.4-46.3) fL RDW Coeff of Chauncey (11.5-14.5) % Plt Count (130-400) K/uL Potassium (3.5-5.1) mmol/L Chloride (98-107) mmol/L Carbon Dioxide (21-32) mmol/L BUN/Creatinine Ratio (10-20) Glucose (70-99(Fasting)) mg/dl POC Glucose 136 H 120 H (70-99) mg/dl Calcium (8.6-10.3) mg/dl Phosphorus (2.5-4.9) mg/dl (7) Hypertension Hypertension type: primary hypertension Qualified Code(s): I10 - Essential (primary) hypertension
[2023-05-06] MEDS: ACETAMINOPHEN 325 MG TAB PO PRN (20:34)
[2023-05-07 07:28] LABS: Hematocrit (blood only) 28.9 % (42.0-52.0); Hemoglobin 9.8 g/dl (14.0-18.0); Mean Corpuscular Hemoglobin 29.2 pg (25.0-34.0); Mean Corpuscular Hgb Conc 33.9 g/dL (32.0-36.0); Mean Platelet Volume 9.1 fL (9.4-12.4); Nucleated RBC # (auto) 0.03 K/uL (0.00-0.12); Nucleated RBC % (auto) 0.3 %; Platelet Count 120 K/uL (130-400); RDW Coefficient of Variation 15.4 % (11.5-14.5); RDW Standard Deviation 47.8 fL (36.4-46.3); Red Blood Count 3.36 M/uL (4.70-6.10)
[2023-05-07 07:40] LABS: BUN Creatinine Ratio 4.7 (10-20); Calcium 7.2 mg/dl (8.6-10.3); Creatinine Clr Calc Pharmacy 52.3 ml/min; Est GFR (African American) 62.2 ml/min; Est GFR (Non-African American) 53.6 ml/min; Magnesium 1.5 mg/dl (1.7-2.4); Phosphorus 1.8 mg/dl (2.5-4.9); Potassium 3.2 mmol/L (3.5-5.1)
[2023-05-07] MEDS ORDERED: POTASSIUM PHOS 3 MMOL/1 ML INFUSION IV STA (08:03)
[2023-05-07] MEDS: MAGNESIUM SULFATE / D5W 1 GM/100 ML BAG IV SCH (09:11)
[2023-05-07] MEDS: POT PHOSPHATE MONOBASIC W/ SOD TAB PO ONE (09:11)
[2023-05-07] MEDS: POTASSIUM PHOSPHATE 30 MMOL in SODIUM CHLORIDE 0.9% 500 ML IV ONE (09:11)
--- NOTE | 2023-05-07 14:00 | Hospitalist Progress Note ---
Date of Service May 07, 2023 Assessment & Plan (1) Paresthesia of left lower extremity: (2) PVD (peripheral vascular disease): (3) Elevated troponin: Plan: 78-year-old male with PMH of peripheral vascular disease, dyslipidemia, BPH, lumbar spine stenosis and other medical problems listed below who presents with new numbness in left lower extremity yesterday. LLE with decreased sensation and increased weakness from the day prior to presentation H/o PVD with fem-fem bypass [address] Parra, per patient LLE arterial duplex with focal area of hemodynamically significant stenosis within the mid left superficial femoral artery. No evidence for arterial occlusion within the left lower extremity Abdominal pelvic CT angio noted occluded right common iliac artery and right external iliac with reconstitution, left to right femoral femoral bypass graft widely patent. Vascular surgery evaluation and recommendations appreciated. Brain MRI did not show acute infarct HS troponin 219 -> 254->250, No EKG changes or chest pain. Elevated troponin is flat. Unclear if demand ischemia or chronically elevated TTE report noted technically difficult study, EF of 60 to 65%, grade 1 diastolic dysfunction, moderate concentric LVH, LV wall motion is normal, aortic valvular sclerosis is moderate without significant valvular stenosis. Commission Associate evaluation and recommendations noted Completed 24h of IV hep gtt per Cards Freq PVCs on tele. Home toprol XL increased to 25mg BID Continue aspirin, statin, cilostazol LE paresthesia resolved (4) Lumbosacral radiculopathy: (5) Chronic back pain: Plan: Significant history of lumbar radiculopathy Lumbar spine x-ray noted degenerative disc disease with moderate to severe disc space narrowing at L3-L4, moderate narrowing at L4-L5 and L5-S1. Reviewed old lumbar spine MRI from 2021. Moderate to severe L3-L4 narrowing noted at the time. Lumbar MRI this admission did not show any significant change from prior Continue home pain regimen with hydrocodone-acetaminophen, Lyrica (6) Pneumonia: Plan: Recent RSV infection 3 weeks ago CXR with lower lung predominant reticulonodular interstitial thickening. This favors an infectious process. Pulmonary edema could appear similar. Radiographic follow-up to ensure resolution is recommended Procal elevated at 25 on 05/04/23, down to 5.8 today Continue ceftriaxone/doxy for CAP coverage Continue home inhalers PRN antitussives Wean off oxygen Will get 2 step prior to dc (7) Hypertension: Plan: Continue home amlodipine, lisinopril HS, Toprol has been increased as above (8) Diabetes mellitus, type II: Plan: Hba1c is 6.2 Hold home agents SSI while in-patient BSG AC HS (9) Chronic obstructive pulmonary disease: Plan: Stable Continue home inhalers (10) Depression: Plan: H/o depression and anxiety. Chronic, stable. Continue Buspar, mirtazapine, hydroxyzine HS PRN (11) BPH (benign prostatic hyperplasia): Plan: Continue Flomax Abnormal CT abd/pelvis Bulbous appearance to the tip the appendix which has slightly improved. No evidence for acute appendicitis. An underlying lesion at the appendiceal tip remains the diagnosis of exclusion. Nonemergent surgical consultation recommended PT/OT eval noted Hypokalemia, hypomagnesemia and hypophosphatemia Aggressively replete and monitor DVT Ppx: Hep Sq Code status: CONDITIONAL CODE. YES to CPR/cardiac defibrillation, NO to intubation or artificial airway PCP: JIGNESH I spent a total of 40 minutes coordinating, documenting, and providing care for this patient excluding time spent in the performance of separately billed services. Admission and Anticipated Discharge Date Admission Date: May 04, 2023 Subjective Patient seen and examined Reports left leg numbness has resolved Reports diarrhea had stopped Reports generalized weakness Still having cough Requiring oxygen intermittently Denied any chest pain, shortness of breath, nausea, vomiting, abd pain Denied dysuria, freq, urgency Physical Exam Constitutional: + well hydrated; no acute distress Eyes: PERRL, conjunctivae normal, anicteric sclerae ENMT: external ear and nose normal, oropharynx normal Respiratory: normal respiratory effort, lungs clear to auscultation Cardiovascular: Rate/Rhythm: regular rate and regular rhythm S1 S2 Gastrointestinal (Abdomen): normal bowel sounds, soft, nontender, no hepatosplenomegaly Musculoskeletal: No pedal edema Neurologic: PERRL, EOMI, accommodation nl, no face palsy, no dysarthria Power equal in all extremities Psychiatric: A+Ox3, euthymic affect Results & Data Results & Data Vital Signs (Past 12 Hours) Vital Signs Temp Pulse Pulse Resp BP Pulse Ox O2 Del Method 05/07/23 11:23 36.8 C 87 18 149/58 H 96 Nasal Cannula 05/07/23 08:00 Nasal Cannula 02/18/24 07:25 37.2 C 112 H 20 174/55 H 91 Room Air 05/07/23 07:00 107 H 05/07/23 03:16 36.8 C 99 H 20 137/62 95 Nasal Cannula O2 Flow Rate 05/07/23 11:23 2 05/07/23 08:00 2 05/07/23 07:25 05/07/23 07:00 05/07/23 03:16 2 Laboratory Results Abnormal lab results 05/06/23 05/07/23 05/07/23 Range/Units 20:40 06:33 07:27 RBC 3.36 L (4.70-6.10) M/uL Hgb 9.8 L (14.0-18.0) g/dl Hct 28.9 L (42.0-52.0) % RDW Std Deviation 47.8 H (36.4-46.3) fL RDW Coeff of Chauncey 15.4 H (11.5-14.5) % Plt Count 120 L (130-400) K/uL MPV 9.1 L (9.4-12.4) fL Potassium 3.2 L (3.5-5.1) mmol/L Chloride 114 H (98-107) mmol/L Carbon Dioxide 20 L (21-32) mmol/L BUN/Creatinine Ratio 4.7 L (10-20) Glucose 103 H (70-99(Fasting)) mg/dl POC Glucose 122 H 117 H (70-99) mg/dl Calcium 7.2 L (8.6-10.3) mg/dl Phosphorus 1.8 L (2.5-4.9) mg/dl Magnesium 1.5 L (1.7-2.4) mg/dl Procalcitonin 5.80 H (0-0.5) ng/ml 05/07/23 05/07/23 Range/Units 11:21 16:09 RBC (4.70-6.10) M/uL Hgb (14.0-18.0) g/dl Hct (42.0-52.0) % RDW Std Deviation (36.4-46.3) fL RDW Coeff of Chauncey (11.5-14.5) % Plt Count (130-400) K/uL MPV (9.4-12.4) fL Potassium (3.5-5.1) mmol/L Chloride (98-107) mmol/L Carbon Dioxide (21-32) mmol/L BUN/Creatinine Ratio (10-20) Glucose (70-99(Fasting)) mg/dl POC Glucose 142 H 126 H (70-99) mg/dl Calcium (8.6-10.3) mg/dl Phosphorus (2.5-4.9) mg/dl Magnesium (1.7-2.4) mg/dl Procalcitonin (0-0.5) ng/ml (7) Hypertension Hypertension type: primary hypertension Qualified Code(s): I10 - Essential (primary) hypertension
[2023-05-07 18:57] LABS: Phosphorus 2.4 mg/dl (2.5-4.9); Potassium 2.9 mmol/L (3.5-5.1)
[2023-05-08 07:08] LABS: Hematocrit (blood only) 27.9 % (42.0-52.0); Hemoglobin 9.5 g/dl (14.0-18.0); Mean Corpuscular Hemoglobin 29.3 pg (25.0-34.0); Mean Corpuscular Hgb Conc 34.1 g/dL (32.0-36.0); Mean Corpuscular Volume 86.1 fL (80.0-100.0); Mean Platelet Volume 9.4 fL (9.4-12.4); Platelet Count 155 K/uL (130-400); RDW Coefficient of Variation 15.2 % (11.5-14.5); RDW Standard Deviation 47.1 fL (36.4-46.3); Red Blood Count 3.24 M/uL (4.70-6.10); White Blood Count 9.45 K/ul (4.8-10.8)
[2023-05-08 07:37] LABS: BUN Creatinine Ratio 4.2 (10-20); Calcium 7.2 mg/dl (8.6-10.3); Creatinine Clr Calc Pharmacy 56.4 ml/min; Est GFR (African American) 68.6 ml/min; Est GFR (Non-African American) 59.2 ml/min; Magnesium 1.9 mg/dl (1.7-2.4); Phosphorus 1.4 mg/dl (2.5-4.9)
[2023-05-08] MEDS ORDERED: POTASSIUM PHOS 3 MMOL/1 ML INFUSION IV STA (07:52)
[2023-05-08] MEDS ORDERED: POTASSIUM PHOSPHATE 40 MMOL in SODIUM CHLORIDE 0.9% 1,000 ML IV ONE (08:00)
[2023-05-08] MEDS: POTASSIUM PHOS 3 MMOL/1 ML INFUSION IV STA (10:00)
[2023-05-08] MEDS: POTASSIUM PHOSPHATE 30 MMOL in SODIUM CHLORIDE 0.9% 500 ML IV ONE (10:33)
--- NOTE | 2023-05-08 11:38 | Hospitalist Progress Note ---
Date of Service May 08, 2023 Assessment & Plan (1) Paresthesia of left lower extremity: (2) PVD (peripheral vascular disease): (3) Elevated troponin: Plan: 78-year-old male with PMH of peripheral vascular disease, dyslipidemia, BPH, lumbar spine stenosis and other medical problems listed below who presents with new numbness in left lower extremity yesterday. LLE with decreased sensation and increased weakness from the day prior to presentation H/o PVD with fem-fem bypass [address] Parra, per patient LLE arterial duplex with focal area of hemodynamically significant stenosis within the mid left superficial femoral artery. No evidence for arterial occlusion within the left lower extremity Abdominal pelvic CT angio noted occluded right common iliac artery and right external iliac with reconstitution, left to right femoral femoral bypass graft widely patent. Vascular surgery evaluation and recommendations appreciated. Brain MRI did not show acute infarct HS troponin 219 -> 254->250, No EKG changes or chest pain. Elevated troponin is flat. Unclear if demand ischemia or chronically elevated TTE report noted technically difficult study, EF of 60 to 65%, grade 1 diastolic dysfunction, moderate concentric LVH, LV wall motion is normal, aortic valvular sclerosis is moderate without significant valvular stenosis. 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 Home toprol XL increased to 25mg BID Continue aspirin, statin, cilostazol LE paresthesia resolved (4) Lumbosacral radiculopathy: (5) Chronic back pain: Plan: Significant history of lumbar radiculopathy Lumbar spine x-ray noted degenerative disc disease with moderate to severe disc space narrowing at L3-L4, moderate narrowing at L4-L5 and L5-S1. Reviewed old lumbar spine MRI from 2021. Moderate to severe L3-L4 narrowing noted at the time. Lumbar MRI this admission did not show any significant change from prior Continue home pain regimen with hydrocodone-acetaminophen, Lyrica (6) Pneumonia: Plan: Recent RSV infection 3 weeks ago CXR with lower lung predominant reticulonodular interstitial thickening. This favors an infectious process. Pulmonary edema could appear similar. Radiographic follow-up to ensure resolution is recommended Procal elevated at 25 on 05/04/23, down to 5.8 today Continue ceftriaxone/doxy for CAP coverage Continue home inhalers PRN antitussives Oxygen weaned off 2 step did not show any oxygen requirement (7) Hypertension: Plan: Continue home amlodipine, lisinopril HS, Toprol has been increased as above (8) Diabetes mellitus, type II: Plan: Hba1c is 6.2 Hold home agents SSI while in-patient BSG AC HS (9) Chronic obstructive pulmonary disease: Plan: Stable Continue home inhalers (10) Depression: Plan: H/o depression and anxiety. Chronic, stable. Continue Buspar, mirtazapine, hydroxyzine HS PRN (11) BPH (benign prostatic hyperplasia): Plan: Continue Flomax Abnormal CT abd/pelvis Bulbous appearance to the tip the appendix which has slightly improved. No evidence for acute appendicitis. An underlying lesion at the appendiceal tip remains the diagnosis of exclusion. Nonemergent surgical consultation recommended PT/OT eval noted Hypokalemia and hypophosphatemia Aggressively replete and monitor DVT Ppx: Hep Sq Code status: CONDITIONAL CODE. YES to CPR/cardiac defibrillation, NO to intubation or artificial airway PCP: JIGNESH Yates spent a total of 40 minutes coordinating, documenting, and providing care for this patient excluding time spent in the performance of separately billed services. Admission and Anticipated Discharge Date Admission Date: May 04, 2023 Subjective Patient seen and examined Reports generalized weakness is improved Reports cough is improving Denied any chest pain, shortness of breath, nausea, vomiting, abd pain Reported one loose stool yesterday Denied dysuria, freq, urgency Physical Exam Constitutional: + well hydrated; no acute distress Eyes: PERRL, conjunctivae normal, anicteric sclerae ENMT: external ear and nose normal, oropharynx normal Respiratory: normal respiratory effort, lungs clear to auscultation Cardiovascular: Rate/Rhythm: regular rate and regular rhythm S1 S2 Gastrointestinal (Abdomen): normal bowel sounds, soft, nontender, no hepatosplenomegaly Musculoskeletal: no cyanosis or clubbing, extremities motor strength 5/5 Neurologic: PERRL, EOMI, accommodation nl, no face palsy, no dysarthria Psychiatric: A+Ox3, euthymic affect Results & Data Results & Data Vital Signs (Past 12 Hours) Vital Signs Temp Pulse Pulse Pulse Resp Resp Resp 05/08/23 11:16 36.6 C 93 H 05/08/23 07:53 112 H 78 22 18 05/08/23 07:02 36.8 C 105 H 05/08/23 03:32 37.2 C 94 H 18 BP Pulse Ox Pulse Ox Pulse Ox O2 Del Method O2 Flow Rate 05/08/23 11:16 154/60 H 87 L Room Air 05/08/23 07:53 89 L 91 05/08/23 07:02 169/64 H 90 Room Air 05/08/23 03:32 157/66 H 93 Nasal Cannula 2 Laboratory Results Abnormal lab results 05/07/23 05/07/23 05/07/23 Range/Units 16:09 18:11 20:00 RBC (4.70-6.10) M/uL Hgb (14.0-18.0) g/dl Hct (42.0-52.0) % RDW Std Deviation (36.4-46.3) fL RDW Coeff of Chauncey (11.5-14.5) % Potassium 2.9 L (3.5-5.1) mmol/L Chloride (98-107) mmol/L Carbon Dioxide (21-32) mmol/L Anion Gap (3-11) BUN (6-23) mg/dl BUN/Creatinine Ratio (10-20) POC Glucose 126 H 101 H (70-99) mg/dl Calcium (8.6-10.3) mg/dl Phosphorus 2.4 L (2.5-4.9) mg/dl 05/08/23 05/08/23 Range/Units 06:01 11:17 RBC 3.24 L (4.70-6.10) M/uL Hgb 9.5 L (14.0-18.0) g/dl Hct 27.9 L (42.0-52.0) % RDW Std Deviation 47.1 H (36.4-46.3) fL RDW Coeff of Chauncey 15.2 H (11.5-14.5) % Potassium 3.0 L (3.5-5.1) mmol/L Chloride 111 H (98-107) mmol/L Carbon Dioxide 18 L (21-32) mmol/L Anion Gap 12 H (3-11) BUN 5 L (6-23) mg/dl BUN/Creatinine Ratio 4.2 L (10-20) POC Glucose 126 H (70-99) mg/dl Calcium 7.2 L (8.6-10.3) mg/dl Phosphorus 1.4 L* D (2.5-4.9) mg/dl (7) Hypertension Hypertension type: primary hypertension Qualified Code(s): I10 - Essential (primary) hypertension
[2023-05-08] MEDS: POT PHOSPHATE MONOBASIC W/ SOD TAB PO SCH (12:42)
[2023-05-08 17:57] LABS: Phosphorus 4.1 mg/dl (2.5-4.9); Potassium 3.9 mmol/L (3.5-5.1)
[2023-05-09 06:58] LABS: Hemoglobin 9.4 g/dl (14.0-18.0); Mean Corpuscular Hemoglobin 29.3 pg (25.0-34.0); Mean Corpuscular Hgb Conc 34.8 g/dL (32.0-36.0); Mean Corpuscular Volume 84.1 fL (80.0-100.0); Mean Platelet Volume 9.3 fL (9.4-12.4); Nucleated RBC # (auto) 0.02 K/uL (0.00-0.12); Nucleated RBC % (auto) 0.2 %; Platelet Count 176 K/uL (130-400); RDW Coefficient of Variation 15.4 % (11.5-14.5); RDW Standard Deviation 46.4 fL (36.4-46.3); Red Blood Count 3.21 M/uL (4.70-6.10); White Blood Count 9.16 K/ul (4.8-10.8)
[2023-05-09 07:22] LABS: BUN Creatinine Ratio 5.7 (10-20); Calcium 7.2 mg/dl (8.6-10.3); Creatinine Clr Calc Pharmacy 54.1 ml/min; Est GFR (African American) 65.2 ml/min; Est GFR (Non-African American) 56.3 ml/min; Magnesium 1.7 mg/dl (1.7-2.4); Phosphorus 2.3 mg/dl (2.5-4.9)
[2023-05-09] MEDS: POTASSIUM CHLORIDE CRTAB 20 MEQ TABCR PO SCH (09:32)
--- NOTE | 2023-05-09 12:12 | Discharge Summary ---
Date of Service May 09, 2023 Admission HPI Per Admitting Provider This is a 78-year-old male with PMH of peripheral vascular disease, dyslipidemia, BPH, lumbar spine stenosis and other medical problems listed below who presents with new numbness in left lower extremity yesterday. Noticed some numbness and tingling of his left lower leg last evening around 1999 while laying on couch. Got up around 2200 to try to see if he could get rid of the tingling feeling and ran into a coffee table, hitting his R knee and falling down. Denies any head trauma or LOC. LLE has some associated weakness as well which makes walking difficult. Now noticing some tingling in his R leg but denie s any weakness. Friend at bedside endorses some confusion this morning when he was on the phone with his son. No facial droop, slurring of speech or weakness of upper extremities. Patient with remote history of RLE fem-fem bypass [address] Parra [address]. Also with history of chronic back pain with multiple surgeries and last had a spinal stimulator placed by Dr. Armas last year. No F/ C, lightheadedness, CP, SOB, N/V, abdominal pain, dysuria, diarrhea or constipation. Had RSV 3 weeks ago and has a residual cough with clear sputum. Decreased PO intake today but felt fine yesterday. Admission Exam Per Admitting Provider General Appearance:Obese, no apparent distress Head: normocephalic, Atraumatic Eyes: normal inspection, EOMI Neck: supple, Trachea midline Respiratory/Chest: Decreased breath sounds, CTA, No accessory muscle use Cardiovascular: S1, S2, No murmur,+Tachycardia Abdomen/GI:Soft, Non tender, Bowel sounds present Extremities/Musculoskeletal:normal inspection, no edema, R knee erythematous, abrasion Neurologic/Psych:AAOX3, +Left LE mild decreased sensation but otherwise grossly no focal deficits, normal strength bilateral extremities Skin: normal color, warm Principal Diagnosis Pneumonia Electrolyte abnormalities (Hypokalemia, hypophosphatemia) Elevated troponin Left leg Paresthesia Discharge Exam Constitutional + well hydrated; no acute distress Eyes PERRL, conjunctivae normal, anicteric sclerae ENMT external ear and nose normal, oropharynx normal Respiratory normal respiratory effort, lungs clear to auscultation Cardiovascular Rate/Rhythm: regular rate and regular rhythm S1 S2 Gastrointestinal (Abdomen) normal bowel sounds, soft, nontender, no hepatosplenomegaly Musculoskeletal no cyanosis or clubbing, extremities motor strength 5/5 Neurologic PERRL, EOMI, accommodation nl, no face palsy, no dysarthria No sensory deficits Psychiatric A+Ox3, euthymic affect Discharge Data Allergies Allergy/AdvReac Type Severity Reaction Status Date / Time gabapentin Allergy Unknown Unknown Verified 04/25/22 11:43 duloxetine AdvReac Intermediate Insomnia Verified 04/25/22 11:43 oxycodone AdvReac Intermediate Abdominal Verified 04/25/22 11:43 Discomfort, Vomiting, Headache Consultations 05/04/23 16:49 ED Decision to Admit Stat 05/04/23 17:55 Consult Vascular Surgery Routine 05/05/23 07:49 Consult Cardiology Routine 05/05/23 07:53 Consult Orthopedic Spine Surgery Routine Ordered Studies 05/04/23 13:[address] [CT head/brain wo con] Stat 05/04/23 13:26 US arterial duplex LE LT Stat 05/04/23 14:03 CT abd pelvis wo con Stat 05/04/23 17:16 MRI Brain [MR brain wo/w con] Urgent 05/04/23 18:40 CTA abdomen pelvis w con [CT angio abdomen pelvis w con] Urgent 05/06/23 09:42 MR lumbar spine wo con Stat Hospital Course (1) Paresthesia of left lower extremity: (2) PVD (peripheral vascular disease): (3) Elevated troponin: 78-year-old male with PMH of peripheral vascular disease, dyslipidemia, BPH, lumbar spine stenosis and other medical problems listed below who presents with new numbness in left lower extremity yesterday. LLE with decreased sensation and increased weakness from the day prior to presentation H/o PVD with fem-fem bypass [address] Parra, per patient LLE arterial duplex with focal area of hemodynamically significant stenosis within the mid left superficial femoral artery. No evidence for arterial occlusion within the left lower extremity Abdominal pelvic CT angio noted occluded right common iliac artery and right external iliac with reconstitution, left to right femoral femoral bypass graft widely patent. Vascular surgery evaluation and recommendations appreciated. Brain MRI did not show acute infarct HS troponin 219 -> 254->250, No EKG changes or chest pain. Elevated troponin is flat. Unclear if demand ischemia or chronically elevated TTE report noted technically difficult study, EF of 60 to 65%, grade 1 diastolic dysfunction, moderate concentric LVH, LV wall motion is normal, aortic valvular sclerosis is moderate without significant valvular stenosis. [employer] evaluated Completed 24h of IV hep gtt per [employer] on tele. Home toprol XL increased to 25mg BID Continue aspirin, statin, cilostazol LE paresthesia resolved (4) Lumbosacral radiculopathy: (5) Chronic back pain: Significant history of lumbar radiculopathy Lumbar spine x-ray noted degenerative disc disease with moderate to severe disc space narrowing at L3-L4, moderate narrowing at L4-L5 and L5-S1. Reviewed old lumbar spine MRI from 2021. Moderate to severe L3-L4 narrowing noted at the time. Lumbar MRI this admission did not show any significant change from prior Continue home pain regimen with hydrocodone-acetaminophen, Lyrica Ortho spine surgeon also reviewed while inpatient. PT/OT evaluated Script written for CM for wheeled walker (6) Pneumonia: Recent RSV infection 3 weeks ago CXR with lower lung predominant reticulonodular interstitial thickening. This favors an infectious process. Pulmonary edema could appear similar. Radiographic follow-up to ensure resolution is recommended Procal elevated at 25 on 05/04/23, down to 5.8 today Completed 5 days of antibiotics for CAP coverage Continue home inhalers PRN antitussives Oxygen weaned off 2 step did not show any oxygen requirement (7) Hypertension: Continue home amlodipine, lisinopril HS, Toprol has been increased as above (8) Diabetes mellitus, type II: Hba1c is 6.2 Continue home antidiabetics (9) Chronic obstructive pulmonary disease: Stable Continue home inhalers (10) Depression: H/o depression and anxiety. Chronic, stable. Continue Buspar, mirtazapine, hydroxyzine HS PRN (11) BPH (benign prostatic hyperplasia): Continue Flomax Abnormal CT abd/pelvis Bulbous appearance to the tip the appendix which has slightly improved. No evidence for acute appendicitis. An underlying lesion at the appendiceal tip remains the diagnosis of exclusion. Nonemergent surgical consultation recommended Hypokalemia and hypophosphatemia Repleted aggressively May be related to some diarrhea episodes while inpatient C diff was negative Discharged on po Potassium and neutraphos PCP to follow up within a week and check electrolytes/BMP Total Time Total Time Spent Total Time Spent (In Minutes): 40 Total Time Includes: Examination of the Patient, Discharge Planning and Medication Reconciliation Discharge Plan Discharge Items Patient Disposition: Home - Self-Care Reason For Visit: LLE NUMBNESS Discharge Diagnosis: Pneumonia Electrolyte abnormalities (Hypokalemia, hypophosphatemia) Elevated troponin Left leg Paresthesia Activity: Resume your previous activity Non-emergency contact: Primary Care Provider Call non-emergency contact if: you have any medication questions and your symptoms worsen Follow-up/Referrals: [facility],Hospital [Primary Care Provider] - (If you do not receive a phone call for a hospital discharge appointment, [facility] ) Diet: Carb Consistent or DM2 and Heart Healthy Addtl Attending Provider Instructions: Mr Ruiz You came to the hospital complaining of left leg numbness and persistent cough. You were managed for the above listed diagnoses You completed antibiotics in the hospital Your metoprolol succinate was increased to 25mg twice a day by the [employer] You are being discharged on oral potassium and neutraphos for sometime to replenish electrolytes. Please ensure follow up with your Primary Doctor within a week who will recheck your labs and electrolytes. It was a pleasure taking care of you. Pending Studies at Discharge: No Stand-Alone Forms: My [facility] [employer], Smoking Cessation Medications and DC Order Prescriptions: New potassium chloride 20 mEq Tablet,Er Particles/Crystals 20 meq PO QAM Qty: 14 0RF benzonatate 100 mg Capsule 100 mg PO TID PRN (Reason: cough) Qty: 20 0RF Phospha 250 Neutral 250 mg Tablet 1 tab PO QID Qty: 30 0RF guaifenesin [Mucinex] 600 mg Tablet Extended Release 12hr 1,200 mg PO Q12 Qty: 20 0RF loperamide 2 mg capsule 2 mg PO BID PRN (Reason: loose stool) Qty: 7 0RF Continued multivitamin Tablet 1 tab PO QAM buspirone 5 mg Tablet 5 mg PO BID cilostazol 100 mg Tablet 100 mg PO BID theophylline 400 mg Tablet Extended Release 24 Hr 400 mg PO HS hydrocodone-acetaminophen 10-325 mg Tablet 1 tab PO Q6H PRN (Reason: Pain) aspirin 81 mg Tablet,Delayed Release (Dr/Ec) 81 mg PO QAM pantoprazole 20 mg Tablet,Delayed Release (Dr/Ec) 40 mg PO BID tamsulosin 0.4 mg Capsule 0.4 mg PO HS mirtazapine 30 mg Tablet 30 mg PO HS albuterol sulfate 90 mcg/actuation Hfa Aerosol Inhaler 1 inh INHALATION QID PRN (Reason: Shortness Of Breath) rosuvastatin 40 mg Tablet 40 mg PO HS pregabalin 150 mg Capsule 150 mg PO BID diclofenac sodium 1 % Gel 2 g TOPICAL BID PRN (Reason: Pain) tiotropium bromide 2.5 mcg/actuation Mist 2 inh INHALATION QAM ascorbic acid (vitamin C) [Vitamin C] 1,000 mg Tablet 1 g PO QAM cyanocobalamin (vitamin B-12) [Vitamin B-12] 1,000 mcg Tablet 1,000 mcg PO QAM lisinopril 5 mg Tablet 5 mg PO HS metformin 500 mg Tablet 500 mg PO BID amlodipine 5 mg Tablet 5 mg PO DAILY hydroxyzine HCl 25 mg Tablet 25 mg PO HS PRN (Reason: Insomnia) fluticasone propionate 50 mcg/actuation [place],Suspension 1 spray INTRANASAL BID PRN (Reason: Nasal Congestion) Rx Instructions: administer into each nostril ezetimibe 10 mg Tablet 10 mg PO DAILY Changed metoprolol succinate 25 mg Tablet Extended Release 24 Hr 25 mg PO BID Qty: 60 0RF Discharge Orders: Discharge Order (Routine); Ordered 05/09/23 Ordered By: Gwen Cannon/Other Patient Handouts: Managing Type 2 Diabetes Admission Data Admit Date/Time: 05/04/23 17:58 Attending Provider: Gwen Lucia I. Admit Provider: Kuldip Urbano Primary Care Provider: [facility] Other Providers: Kuldip Urbano; David Ulloa; Jos Warner; Alexander Maria; [facility] Other Interventions: Discharge Summary Assessment (RN) Last Done: 05/09/23 13:54
[2023-05-09] MEDS: LOPERAMIDE HCL 2 MG CAP PO STA (12:28)
== END 2023-05-09 13:55 | disposition home or self-care (01) | DRG 91 ==
LOC: ED 12:24 → 2S 17:58 → SUATTDRO 17:58 → 2S 19:25

== ENCOUNTER 2024-04-23 12:35 | Inpatient (IN) ==
--- NOTE | 2024-04-23 13:17 | Emergency Department Note ---
Impression & Plan Acute dyspnea, Acute kidney injury superimposed on chronic kidney disease, Acute hypokalemia, Hypocalcemia, Influenza A, Hypomagnesemia ED Provider Note HISTORY OF PRESENT ILLNESS: Patient is a 79-year-old male presenting with shortness of breath and cough. Patient reports symptoms of been ongoing for the last 9 days and he has not been getting any better. He states that he feels short of breath both at rest and with exertion. [facility] by nurse to present to [facility] emergency department. EMS reports the patient had some wheezing and diminished lung sounds throughout all lung devi, so they gave him a DuoNeb treatment and 125 mg of IV Solu-Medrol. On arrival to the ER, the patient denies any chest pain. He denies any nausea, vomiting or abdominal pain. Denies any fevers. He denies any hemoptysis. Denies any known recent sick contact exposures. Denies any history of cardiac stents. He is not on any anticoagulation or antiplatelet therapy. Denies any DVT or PE history. ROS: as above PHYSICAL EXAM: Constitutional: Patient appears in no acute distress. HENT: Head: Normocephalic and atraumatic. Eyes: EOMI, PERRL Mouth/Throat: Mucous membranes moist. Neck: Trachea midline. Neck supple. Cardiovascular: Tachycardic with regular rhythm. No murmurs, rubs or gallops. Intact distal pulses. Pulmonary/Chest: No respiratory distress. Breath sounds clear and equal bilaterally. No wheezes or rales. Abdominal: Abdomen soft, no tenderness, rebound or guarding. Musculoskeletal: No edema, tenderness or deformity noted. Skin: Warm and dry. No rash, erythema, pallor or cyanosis Psychiatric: Appropriate mood and affect for situation. Neurological: Alert and keenly responsive. CN II-XII grossly intact, moving all extremities equally and fully. MDM: - Vitals signs showed hypertension and tachycardia. - History obtained via patient. History as above. - Chronic conditions affecting care: HTN; HLD; BPH; depression; COPD; DM-2; PAD; CKD - Differential diagnoses include, but are not limited to: Congestive heart failure; acute coronary syndrome; COPD/asthma exacerbation; pulmonary edema; pulmonary embolism; pneumonia; pneumothorax; viral syndrome - Order placed for continuous cardiac monitoring. At this time, monitor showed rate of 110 bpm with normal sinus rhythm, per my interpretation. - External medical records reviewed. Nephrology office visit note dated 02/27/2024 was reviewed. Patient has CKD stage III with baseline creatinine of 1.4-1.5. - EKG interpreted by myself showed normal sinus rhythm. Rate tachycardic at 113 bpm. QT 392. No acute ischemic changes. - Laboratory workup interpreted by myself showed leukocytosis (WBC 12.55); normal PT/INR; hypokalemia (K 2.9); SINA on CKD (Cr 2.67); elevated anion gap (13); hypocalcemia (Ca 8.1); normal troponin; normal BNP; hypomagnesemia (Mg 1.6) - CXR showed pulmonary vascular congestion, per my interpretation. However, radiology notes progressive diffuse reticular nodular pulmonary opacities concerning for infectious/inflammatory etiology versus metastases. - Viral respiratory panel poistive for influenza A - Patient given 500 cc NS and 30 mEq IV potassium + 1g IV calcium + 1g IV magnesium for electrolyte replacement. - Discussion was had with senior case manager about patient's case and need for admission - Hospitalist, Dr. Knight, consulted for admission. Requested that CT chest without contrast to be ordered for further characterization of potential metastatic disease on the chest x-ray. CT without contrast was ordered. - Patient admitted to [facility] service for further evaluation and management. ASSESSMENT AND PLAN: Diagnosis: acute dyspnea; acute hypokalemia; SINA on CKD; hypocalcemia; influenza A infection; hypomagnesemia Plan: admit Past Med/Surg History Problem List (Updated 04/23/24 @ 15:09 by Niyah Mccabe MD) Hypomagnesemia (Acute) Influenza A (Acute) Hypocalcemia (Acute) Acute hypokalemia (Acute) Acute kidney injury superimposed on chronic kidney disease (Acute) Acute dyspnea (Acute) Acute kidney injury Vitamin D deficiency Chronic anemia Stage 3b chronic kidney disease PVC (premature ventricular contraction) Aortoiliac occlusive disease PAD (peripheral artery disease) Elevated troponin (Acute) Left leg numbness (Acute) Pneumonia Elevated troponin Paresthesia of left lower extremity Postlaminectomy syndrome of lumbar region Allergic rhinitis Diabetes mellitus, type II Chronic obstructive pulmonary disease inhalers daily/prn Depression PVD (peripheral vascular disease) BPH (benign prostatic hyperplasia) Chronic back pain Hypertension Idiopathic polyneuropathy Lumbosacral radiculopathy HLD (hyperlipidemia) Coronary atherosclerosis of [place] coronary vessel Medical History Hearing deficit History of COVID-19 Surgical History History of femoropopliteal bypass History of colonoscopy History of tooth extraction History of sinus surgery Family History Other No family history of adverse response to anesthesia Social History Smoking Status: Former smoker Tobacco Type: Cigarettes Age Started Using Tobacco: 17; Age Quit Using Tobacco: 61; packs per day: 1; Second Hand Exposure: No; Do You Dip or Chew Tobacco: No; Hx Alcohol Use: No Hx Substance Use: No Preferred Language: Maltese Communication Ability: Effective Visual Impairment: No Limitations Hearing Ability: Use of Hearing Aid Commercial Roofer Required: No Beliefs That Will Affect Care: None marital status: / Current Living Situation: Alone current occupational status: retired current occupation: [employer] How many Children do You have: 2 How many Children do You have Comment: 2 biological kids 3 step children Feels Safe at Home: Yes Diet: regular caffeine: Yes (soda a 1-2 daily) Dental Care, Regularly: No Physical Activity Frequency: Does not Exercise Seatbelt Use: always Do you think of yourself as: straight/heterosexual Gender Identity: Male Assistive Devices: Cane, Denture - Upper, Glasses and Hearing Aid - Bilateral Allergies Allergies Allergy/AdvReac Type Severity Reaction Status Date / Time gabapentin Allergy Unknown Unknown Verified 02/27/24 12:01 duloxetine AdvReac Intermediate Insomnia Verified 02/27/24 12:01 oxycodone AdvReac Intermediate Abdominal Verified 02/27/24 12:01 Discomfort, Vomiting, Headache Home Meds Home Medications Medication Instructions Recorded Confirmed albuterol sulfate 90 mcg/actuation 1 inh inhalation QID PRN Shortness 07/05/21 02/27/24 aerosol inhaler Of Breath aspirin 81 mg tablet,delayed 81 mg PO QAM 07/05/21 02/27/24 release buspirone 5 mg tablet 5 mg PO BID 07/05/21 02/27/24 cilostazol 100 mg tablet 100 mg PO BID 07/05/21 02/27/24 diclofenac sodium 1 % topical gel 2 g topical BID PRN Pain 07/05/21 02/27/24 mirtazapine 30 mg tablet 30 mg PO HS 07/05/21 02/27/24 multivitamin 1 tab PO QAM 07/05/21 02/27/24 pantoprazole 20 mg tablet,delayed 40 mg PO BID 07/05/21 02/27/24 release pregabalin 150 mg capsule 150 mg PO BID 07/05/21 02/27/24 rosuvastatin 40 mg tablet 40 mg PO HS 07/05/21 02/27/24 tamsulosin 0.4 mg capsule 0.4 mg PO HS 07/05/21 02/27/24 tiotropium bromide 2.5 2 inh inhalation QAM 07/05/21 02/27/24 mcg/actuation mist for inhalation ascorbic acid (vitamin C) 1,000 mg 1 g PO QAM 04/19/22 02/27/24 tablet (Vitamin C) cyanocobalamin (vitamin B-12) 1,000 mcg PO QAM 04/19/22 02/27/24 1,000 mcg tablet (Vitamin B-12) lisinopril 5 mg tablet 5 mg PO HS 04/19/22 02/27/24 amlodipine 5 mg tablet 5 mg PO DAILY 05/04/23 02/27/24 ezetimibe 10 mg tablet 10 mg PO DAILY 05/04/23 02/27/24 fluticasone propionate 50 1 spray intranasal BID PRN Nasal 05/04/23 02/27/24 mcg/actuation nasal Congestion spray,suspension hydroxyzine HCl 25 mg tablet 25 mg PO HS PRN Insomnia 05/04/23 02/27/24 metformin 500 mg tablet 500 mg PO BID 05/04/23 02/27/24 cholecalciferol (vitamin D3) 25 25 mcg PO DAILY 02/27/24 02/27/24 mcg (1,000 unit) tablet Previous Rx's Medication Instructions Recorded benzonatate 100 mg capsule 100 mg PO TID PRN cough #20 caps 05/09/23 guaifenesin 600 mg tablet, 1,200 mg (2 x 600 mg) PO Q12 #20 05/09/23 extended release 12 hr (Mucinex) tabs loperamide 2 mg capsule 2 mg PO BID PRN loose stool #7 caps 05/09/23 metoprolol succinate 25 mg 25 mg PO BID #60 tabs 05/09/23 tablet,extended release 24 hr potassium chloride 20 mEq 20 meq PO QAM #14 tabs 05/09/23 tablet,extended release(part/cryst) sodium di- and 1 tab PO QID #30 tabs 05/09/23 monophosphate-potassium phos monobasic 250 mg tablet (Phospha Neutral) empagliflozin 10 mg tablet 10 mg PO DAILY #30 tabs 11/29/23 (Jardiance) Results & Data (ED) Vital Signs Vital Signs - 24 hr 04/23/24 12:46 04/23/24 12:49 04/23/24 13:00 Temperature 37.1 C Temperature Source Oral Pulse Rate 117 H 112 H Respiratory Rate 22 Respiratory Effort / Characteristics Spontaneous Short of Breath Respiratory Depth Normal Respiratory Pattern Regular Blood Pressure 149/94 H 140/59 L Blood Pressure Mean 112 80 Pulse Oximetry 99 Oxygen Delivery Method Room Air Sepsis Recent Fever Within 48 Hours No Sepsis New/Unexplained Change in Mental Status N/A Sepsis Action Taken by Nursing No Action Required 04/23/24 13:01 04/23/24 13:12 04/23/24 13:27 Temperature Temperature Source Pulse Rate 112 H 104 H Respiratory Rate 17 19 Respiratory Effort / Characteristics Respiratory Depth Respiratory Pattern Blood Pressure Blood Pressure Mean Pulse Oximetry 95 94 Oxygen Delivery Method Room Air Room Air Room Air Sepsis Recent Fever Within 48 Hours Sepsis New/Unexplained Change in Mental Status Sepsis Action Taken by Nursing 04/23/24 13:36 04/23/24 14:00 Temperature Temperature Source Pulse Rate 110 H Respiratory Rate 20 Respiratory Effort / Characteristics Respiratory Depth Respiratory Pattern Blood Pressure 124/52 L Blood Pressure Mean 96 Pulse Oximetry 94 Oxygen Delivery Method Room Air Sepsis Recent Fever Within 48 Hours Sepsis New/Unexplained Change in Mental Status Sepsis Action Taken by Nursing Laboratory Data 04/23/24 12:45 04/23/24 12:45 Lab Results 04/23/24 04/23/24 Range/Units 12:45 12:58 WBC 12.55 H (4.8-10.8) K/ul RBC 4.38 L (4.70-6.10) M/uL Hgb 12.4 L (14.0-18.0) g/dl Hct 36.4 L (42.0-52.0) % MCV 83.1 (80.0-100.0) fL MCH 28.3 (25.0-34.0) pg MCHC 34.1 (32.0-36.0) g/dL RDW Std Deviation 45.0 (36.4-46.3) fL RDW Coeff of Chauncey 14.8 H (11.5-14.5) % Plt Count 141 (130-400) K/uL MPV 9.8 (9.4-12.4) fL Immature Gran % (Auto) 1.6 % Neut % (Auto) 75.5 % Lymph % (Auto) 13.1 % Moody % (Auto) 9.3 % Eos % (Auto) 0.3 % Baso % (Auto) 0.2 % Neut # (Auto) 9.47 H (1.40-6.50) K/uL Lymph # (Auto) 1.64 (1.20-3.40) K/uL Moody # (Auto) 1.17 H (0.11-0.59) K/uL Eos # (Auto) 0.04 (0.00-0.50) K/uL Baso # (Auto) 0.03 (0.00-0.20) K/uL Immature Gran # (Auto) 0.20 (0.01-0.20) K/uL PT 10.9 (9.0-12.0) Seconds INR 1.0 (0.9-1.1) Sodium 134 L (136-145) mmol/L Potassium 2.9 L (3.5-5.1) mmol/L Chloride 102 (98-107) mmol/L Carbon Dioxide 19 L (21-32) mmol/L Anion Gap 13 H (3-11) BUN 39 H (6-23) mg/dl Creatinine 2.67 H (0.6-1.4) mg/dl Est Cr Clr Drug Dosing 24.2 ml/min eGFR 23.71 BUN/Creatinine Ratio 14.6 (10-20) Glucose 169 H (70-99(Fasting)) mg/dl Calcium 8.1 L (8.6-10.3) mg/dl Magnesium 1.6 L (1.7-2.4) mg/dl Total Bilirubin 0.6 (0.2-1.0) mg/dl AST 17 (13-39) U/L ALT 16 (7-52) U/L Alkaline Phosphatase 85 (34-104) U/L Troponin I High Sens 11.1 (0-20) pg/ml B-Natriuretic Peptide 30 (0-100) pg/ml Total Protein 7.4 (6.0-8.3) gm/dl Albumin 4.2 (3.4-5.0) gm/dl Globulin 3.2 (2.5-4.0) gm/dl Albumin/Globulin Ratio 1.3 (0.9-2) Adenovirus (PCR) Not Detected (NotDetected) B. pertussis DNA (PCR) Not Detected (NotDetected) B.parapertussis DNA PCR Not Detected (NotDetected) C. pneumoniae DNA (PCR) Not Detected (NotDetected) Coronavirus OC43 (PCR) Not Detected (NotDetected) Coronavirus HKU1 (PCR) Not Detected (NotDetected) Coronavirus 229E (PCR) Not Detected (NotDetected) SARS-CoV-2 (PCR) Not Detected (NotDetected) Coronavirus NL63 (PCR) Not Detected (NotDetected) Human Metapneumovir PCR Not Detected (NotDetected) Influenza A (H3) PCR DETECTED A (NotDetected) Influenza Type B (PCR) Not Detected (NotDetected) M. pneumoniae (PCR) Not Detected (NotDetected) Parainfluenza 1 (PCR) Not Detected (NotDetected) Parainfluenza 2 (PCR) Not Detected (NotDetected) Parainfluenza 3 (PCR) Not Detected (NotDetected) Parainfluenza 4 (PCR) Not Detected (NotDetected) RSV (PCR) Not Detected (NotDetected) Entero/Rhino (PCR) Not Detected (NotDetected) Administered Medications Potassium Chloride (K Jesus / Wtr) 10 meq in 100 mls @ 100 mls/hr IV Q1H JULES Stop: 04/23/24 16:59 Last Admin: 04/23/24 14:10 Dose: 100 mls/hr Documented By: [facility] Discontinued Medications Sodium Chloride (Nss) 500 mls @ 999 mls/hr IV .Q31M ONE Stop: 04/23/24 14:37 Last Admin: 04/23/24 14:10 Dose: 999 mls/hr Documented By: LOWELL Calcium Gluconate () 1,000 mg in 60 mls @ 240 mls/hr IV NOW STA Stop: 04/23/24 14:58 Last Admin: 04/23/24 15:05 Dose: 240 mls/hr Documented By: GENE Imaging Data Radiologist's Impression: Chest X-Ray 04/23/24 12:50 XR chest 1V portable CLINICAL HISTORY: Dyspnea COMPARISON STUDY: 05/04/2023 FINDINGS: Stable lower thoracic neurostimulator lead. Heart size and pulmonary vasculature are normal. There are diffuse reticular nodular opacities in the lungs, mildly progressive. No lobar consolidation or pleural effusion. No pneumothorax. IMPRESSION: Mildly progressive diffuse reticular nodular pulmonary opacities. Differential diagnosis includes infectious/inflammatory etiology and pulmonary metastatic disease. ACT 112: Positive. There are findings on this exam that require communication between the performing entity and the patient following Patient Test Result Information Act ([place] Act 112) guidelines. Electronically signed by: Francisco Javier Ryan M.D. 04/23/2024 1:56 PM Discharge Plan Visit Data Chief Complaint: Shortness of Breath/Dyspnea Stated Complaint: SOB ED Provider: Niyah Mccabe Discharge Problem: Acute dyspnea, Acute kidney injury superimposed on chronic kidney disease, Acute hypokalemia, Hypocalcemia, Influenza A, Hypomagnesemia Forms Stand Alone Forms: My [employer] Prescriptions Prescriptions: No Action Jardiance 10 mg tablet 10 mg PO DAILY Qty: 30 2RF cholecalciferol (vitamin D3) 25 mcg (1,000 unit) tablet 25 mcg PO DAILY multivitamin Tablet 1 tab PO QAM buspirone 5 mg Tablet 5 mg PO BID cilostazol 100 mg Tablet 100 mg PO BID aspirin 81 mg Tablet,Delayed Release (Dr/Ec) 81 mg PO QAM pantoprazole 20 mg Tablet,Delayed Release (Dr/Ec) 40 mg PO BID tamsulosin 0.4 mg Capsule 0.4 mg PO HS mirtazapine 30 mg Tablet 30 mg PO HS albuterol sulfate 90 mcg/actuation Hfa Aerosol Inhaler 1 inh INHALATION QID PRN (Reason: Shortness Of Breath) rosuvastatin 40 mg Tablet 40 mg PO HS pregabalin 150 mg Capsule 150 mg PO BID diclofenac sodium 1 % Gel 2 g TOPICAL BID PRN (Reason: Pain) tiotropium bromide 2.5 mcg/actuation Mist 2 inh INHALATION QAM ascorbic acid (vitamin C) [Vitamin C] 1,000 mg Tablet 1 g PO QAM cyanocobalamin (vitamin B-12) [Vitamin B-12] 1,000 mcg Tablet 1,000 mcg PO QAM lisinopril 5 mg Tablet 5 mg PO HS metformin 500 mg Tablet 500 mg PO BID amlodipine 5 mg Tablet 5 mg PO DAILY hydroxyzine HCl 25 mg Tablet 25 mg PO HS PRN (Reason: Insomnia) fluticasone propionate 50 mcg/actuation Sunflower,Suspension 1 spray INTRANASAL BID PRN (Reason: Nasal Congestion) Rx Instructions: administer into each nostril ezetimibe 10 mg Tablet 10 mg PO DAILY potassium chloride 20 mEq Tablet,Er Particles/Crystals 20 meq PO QAM Qty: 14 0RF benzonatate 100 mg Capsule 100 mg PO TID PRN (Reason: cough) Qty: 20 0RF Phospha 250 Neutral 250 mg Tablet 1 tab PO QID Qty: 30 0RF guaifenesin [Mucinex] 600 mg Tablet Extended Release 12hr 1,200 mg PO Q12 Qty: 20 0RF metoprolol succinate 25 mg Tablet Extended Release 24 Hr 25 mg PO BID Qty: 60 0RF loperamide 2 mg capsule 2 mg PO BID PRN (Reason: loose stool) Qty: 7 0RF Referrals Referrals: Martin Juarez MD [Primary Care Provider] -
[2024-04-23 13:19] LABS: Basophils # (auto) 0.03 K/uL (0.00-0.20); Basophils % (auto) 0.2 %; Eosinophils # (auto) 0.04 K/uL (0.00-0.50); Eosinophils % (auto) 0.3 %; Hematocrit (blood only) 36.4 % (42.0-52.0); Hemoglobin 12.4 g/dl (14.0-18.0); Immature Granulocytes % (auto) 1.6 %; Lymphocytes # (auto) 1.64 K/uL (1.20-3.40); Lymphocytes % (auto) 13.1 %; Mean Corpuscular Hemoglobin 28.3 pg (25.0-34.0); Mean Corpuscular Hgb Conc 34.1 g/dL (32.0-36.0); Mean Corpuscular Volume 83.1 fL (80.0-100.0); Mean Platelet Volume 9.8 fL (9.4-12.4); Monocytes # (auto) 1.17 K/uL (0.11-0.59); Monocytes % (auto) 9.3 %; Neutrophils # (auto) 9.47 K/uL (1.40-6.50); Neutrophils % (auto) 75.5 %; Platelet Count 141 K/uL (130-400); RDW Coefficient of Variation 14.8 % (11.5-14.5); Red Blood Count 4.38 M/uL (4.70-6.10); White Blood Count 12.55 K/ul (4.8-10.8)
[2024-04-23 13:29] LABS: Albumin Globulin Ratio 1.3 (0.9-2); Albumin Level 4.2 gm/dl (3.4-5.0); BUN Creatinine Ratio 14.6 (10-20); Bilirubin,Total 0.6 mg/dl (0.2-1.0); Calcium 8.1 mg/dl (8.6-10.3); Creatinine Clr Calc Pharmacy 24.2 ml/min; Globulin 3.2 gm/dl (2.5-4.0); Potassium 2.9 mmol/L (3.5-5.1); Total Protein 7.4 gm/dl (6.0-8.3)
[2024-04-23 13:36] LABS: Troponin I High Sensitivity 11.1 pg/ml (0-20)
[2024-04-23 13:38] LABS: Prothrombin Time 10.9 Seconds (9.0-12.0)
--- NOTE | 2024-04-23 13:57 | XRay Report ---
XR chest 1V portable CLINICAL HISTORY: Dyspnea COMPARISON STUDY: 05/04/2023 FINDINGS: Stable lower thoracic neurostimulator lead. Heart size and pulmonary vasculature are normal . There are diffuse reticular nodular opacities in the lungs, mildly progressive. No lobar consolidat ion or pleural effusion. No pneumothorax. IMPRESSION: Mildly progressive diffuse reticular nodular pulmonary opacities. Differential diagnosis includes infectious/inflammatory etiology and pulmonary metastatic disease. ACT 112: Positive. There are findings on this exam that require communication between the performing entity and the patient following Patient Test Result Information Act ([place] Act 112) guidelines. Electronically signed by: Francisco Javier Ryan M.D. 04/23/2024 1:56 PM
[2024-04-23] MEDS: SODIUM CHLORIDE 0.9% 500 ML IV ONE (14:10)
[2024-04-23] MEDS: POTASSIUM CHLORIDE / WTR 10 MEQ/100 ML PLCT IV SCH (14:10)
[2024-04-23 14:11] LABS: Adenovirus PCR Not Detected (NotDetected); Bordetella parapertussis PCR Not Detected (NotDetected); Bordetella pertussis PCR Not Detected (NotDetected); Chlamydia pneumoniae PCR Not Detected (NotDetected); Coronavirus 229E PCR Not Detected (NotDetected); Coronavirus CoV-2 (COVID19)PCR Not Detected (NotDetected); Coronavirus HKU1 PCR Not Detected (NotDetected); Coronavirus NL63 PCR Not Detected (NotDetected); Coronavirus OC43PCR Not Detected (NotDetected); Human Metapneumovirus PCR Not Detected (NotDetected); Influenza A (H3) PCR DETECTED (NotDetected); Influenza B PCR Not Detected (NotDetected); Mycoplasma pneumoniae PCR Not Detected (NotDetected); Parainfluenza Virus 1 PCR Not Detected (NotDetected); Parainfluenza Virus 2 PCR Not Detected (NotDetected); Parainfluenza Virus 3 PCR Not Detected (NotDetected); Parainfluenza Virus 4 PCR Not Detected (NotDetected); Respiratory Syncytial VirusPCR Not Detected (NotDetected); Rhinovirus/Enterovirus PCR Not Detected (NotDetected)
--- NOTE | 2024-04-23 14:17 | Electrocardiogram Report ---
Test Reason : Blood Pressure : */* mmHG Vent. Rate : 113 BPM Atrial Rate : 113 BPM P-R Int : 126 ms QRS Dur : 78 ms QT Int : 392 ms P-R-T Axes : 39 62 65 degrees QTcB Int : 537 ms Sinus tachycardia Diffuse Minor Nonspecific ST abnormality Abnormal ECG When compared with ECG of 05-May-2023 05:54, Premature ventricular complexes are no longer Present Nonspecific ST abnormality now present Confirmed by Senthil Bales ([id number]) on 04/23/2024 2:17:16 PM Referred By: Confirmed By: Senthil Bales
[2024-04-23 15:02] LABS: Magnesium 1.6 mg/dl (1.7-2.4)
[2024-04-23] MEDS: CALCIUM GLUCONATE 1,000 MG/60 ML BAG IV STA (15:05)
[2024-04-23] MEDS ORDERED: CARBOHYDRATES FOR HYPOGLYCEMIA PO PRN (15:33)
[2024-04-23] MEDS ORDERED: DEXTROSE 50% 50 ML SYRINGE IV PRN (15:33)
[2024-04-23] MEDS ORDERED: GLUCOSE 40% GEL 15 GM TUBE PO PRN (15:33)
[2024-04-23] MEDS ORDERED: GLUCOSE 10 TAB/TUBE PO PRN (15:33)
[2024-04-23] MEDS ORDERED: GLUCAGON FOR INJ 1 MG VIAL SQ PRN (15:33)
[2024-04-23] MEDS: MAGNESIUM SULFATE / D5W 1 GM/100 ML BAG IV STA (15:37)
--- NOTE | 2024-04-23 15:52 | CT Scan Report ---
CT chest diagnostic wo con CT DOSE: 533.27 mGy.cm CLINICAL HISTORY: 79 years-old Male with infection vs mets on CXR. Acute cough which was breath and wheezing TECHNIQUE: Multiaxial CT images of the chest were performed without contrast. A dose lowering techni que was utilized adhering to the principles of ALARA. COMPARISON: Chest radiograph of same day FINDINGS: No thyroid nodule. Loculated pericardial fluid versus lymph node on image 80 series 4 measu res 2.4 x 1.2 cm. 1.5 cm subcarinal lymph node. Borderline-enlarged hilar lymph nodes. Trace pericard ial effusion. Heart is normal in size. Mild coronary artery calcifications. Atherosclerosis of the ao rta without aneurysm. No pneumothorax, pleural effusion or overt pulmonary edema. Biapical pleural-parenchymal scarring. Mo derate pulmonary emphysema. Mild patchy bibasilar groundglass and nodular consolidative foci, right g reater than left. Scattered calcified pulmonary granulomata. Upper lung zone prominent distribution o f noncalcified pulmonary nodules measure up to 12 mm in the right lung apex on image 51 series 4. The remainder of the nodules are mostly subcentimeter. Several are perifissural and partially calcified. Central airways are patent. Partially imaged exophytic cyst of the left kidney. Unremarkable soft tissues. No acute fracture. Par tially imaged spinal stimulator lead within the mid thoracic spine central canal. IMPRESSION: 1. Emphysema with patchy bibasilar right greater than left opacities suggestive of pneumonia versus a spiration pneumonitis. 2. Mild mediastinal and hilar lymphadenopathy, likely reactive. 3. Biapical pleural parenchymal scarring with upper lung zone predominant scattered solid pulmonary n odules measuring up to 1.2 cm. An infectious or inflammatory process is favored. 3 month follow-up est CT recommended. 4. No pleural effusion. ACT 112: Negative or not required by law. Electronically signed by: Pan Stratton M.D. 04/23/2024 3:50 PM
--- NOTE | 2024-04-23 15:56 | History & Physical Report ---
Date of Service April 23, 2024 Assessment & Plan (1) Influenza A: Plan: History of cough and progressive shortness of breath for 5 days. Has influenza A abuse is complicated by COPD and past the window for giving any Tamiflu Will continue with cough suppressant and other supportive measures Isolation precaution (2) Chronic obstructive pulmonary disease: Plan: History of COPD may have mild exacerbation due to recent flu Not having significant wheezing Bibasilar opacities suggestive of pneumonitis and will start antibiotics with ceftriaxone and doxycycline Will give small doses of steroid and continue with his usual inhalers and as needed nebulized bronchodilator CT of the chest without contrast showed emphysema with patchy bibasilar right greater than the left opacities suggestive of pneumonia/aspiration pneumonitis 1.2 cm right apical nodule a 3-month follow-up is recommended (3) Acute kidney injury superimposed on chronic kidney disease: Plan: Has chronic kidney disease now with acute on chronic finding Creatinine went up to 39/2.67 from 14/04.January of last year Associated electrolytes abnormality with hypokalemia and hypomagnesemia Will give cautious amount of intravenous fluid and monitor kidney function electrolytes Advised to drink more fluid Electrolytes Abnormalities Hypokalemia and hypomagnesemia Supplemented (4) PVD (peripheral vascular disease): Plan: Continue cilostazol (5) Chronic back pain: Plan: No acute findings (6) Diabetes mellitus, type II: Plan: Has been on Jardiance and metformin Which will be on hold Will put him on sliding scale insulin coverage and check hemoglobin A1c (7) HLD (hyperlipidemia): Plan: Continue statin DVT prophylaxis Subcu heparin CODE STATUS Full code History of Present Illness Chief Complaint: Cough with shortness of breath for the last 5 days Primary Care Provider: Martin Mccarthy MD He is a 79-year-old male with significant past medical history of peripheral vascular disease, hyperlipidemia, hypertension, BPH, lumbar spine stenosis with chronic back pain, COPD and type 2 diabetes apparently has been complaining of cough with progressive shortness of breath for the last 5 days. His cough is mostly nonproductive and he does not have any fever and/or chills associated with it he denies any chest pain or palpitation. Denies any abdominal pain, nausea and or vomiting and does not have any problem with urine and bowel habit. He does not have any history of leg swelling as well. He has noted to have flu positive in the emergency room and also chest x-ray shows possible reticulonodular findings suggestive of infection and/or metastatic disease and was reported. He will have a CT of the chest to evaluate it further and the patient was admitted to medical telemetry unit for continuation of care. Allergies Allergy/AdvReac Type Severity Reaction Status Date / Time gabapentin Allergy Unknown Unknown Verified 02/27/24 12:01 duloxetine AdvReac Intermediate Insomnia Verified 02/27/24 12:01 oxycodone AdvReac Intermediate Abdominal Verified 02/27/24 12:01 Discomfort, Vomiting, Headache Home Medications Medication Instructions Recorded Confirmed Type albuterol sulfate 90 mcg/actuation 1 inh inhalation QID PRN Shortness 07/05/21 02/27/24 History aerosol inhaler Of Breath aspirin 81 mg tablet,delayed 81 mg PO QAM 07/05/21 02/27/24 History release buspirone 5 mg tablet 5 mg PO BID 07/05/21 02/27/24 History cilostazol 100 mg tablet 100 mg PO BID 07/05/21 02/27/24 History diclofenac sodium 1 % topical gel 2 g topical BID PRN Pain 07/05/21 02/27/24 History mirtazapine 30 mg tablet 30 mg PO HS 07/05/21 02/27/24 History multivitamin 1 tab PO QAM 07/05/21 02/27/24 History pantoprazole 20 mg tablet,delayed 40 mg PO BID 07/05/21 02/27/24 History release pregabalin 150 mg capsule 150 mg PO BID 07/05/21 02/27/24 History rosuvastatin 40 mg tablet 40 mg PO HS 07/05/21 02/27/24 History tamsulosin 0.4 mg capsule 0.4 mg PO HS 07/05/21 02/27/24 History tiotropium bromide 2.5 2 inh inhalation QAM 07/05/21 02/27/24 History mcg/actuation mist for inhalation ascorbic acid (vitamin C) 1,000 mg 1 g PO QAM 04/19/22 02/27/24 History tablet (Vitamin C) cyanocobalamin (vitamin B-12) 1,000 mcg PO QAM 04/19/22 02/27/24 History 1,000 mcg tablet (Vitamin B-12) lisinopril 5 mg tablet 5 mg PO HS 04/19/22 02/27/24 History amlodipine 5 mg tablet 5 mg PO DAILY 05/04/23 02/27/24 History ezetimibe 10 mg tablet 10 mg PO DAILY 05/04/23 02/27/24 History fluticasone propionate 50 1 spray intranasal BID PRN Nasal 05/04/23 02/27/24 History mcg/actuation nasal Congestion spray,suspension hydroxyzine HCl 25 mg tablet 25 mg PO HS PRN Insomnia 05/04/23 02/27/24 History metformin 500 mg tablet 500 mg PO BID 05/04/23 02/27/24 History benzonatate 100 mg capsule 100 mg PO TID PRN cough #20 caps 05/09/23 02/27/24 Rx guaifenesin 600 mg tablet, 1,200 mg (2 x 600 mg) PO Q12 #20 05/09/23 02/27/24 Rx extended release 12 hr (Mucinex) tabs loperamide 2 mg capsule 2 mg PO BID PRN loose stool #7 caps 05/09/23 02/27/24 Rx metoprolol succinate 25 mg 25 mg PO BID #60 tabs 05/09/23 02/27/24 Rx tablet,extended release 24 hr potassium chloride 20 mEq 20 meq PO QAM #14 tabs 05/09/23 02/27/24 Rx tablet,extended release(part/cryst) sodium di- and 1 tab PO QID #30 tabs 05/09/23 02/27/24 Rx monophosphate-potassium phos monobasic 250 mg tablet (Phospha Neutral) empagliflozin 10 mg tablet 10 mg PO DAILY #30 tabs 11/29/23 02/27/24 Rx (Jardiance) cholecalciferol (vitamin D3) 25 25 mcg PO DAILY 02/27/24 02/27/24 History mcg (1,000 unit) tablet Past Med/Surg History Problem List (Updated 04/23/24 @ 15:09 by Niyah Mccabe MD) Hypomagnesemia (Acute) Influenza A (Acute) Hypocalcemia (Acute) Acute hypokalemia (Acute) Acute kidney injury superimposed on chronic kidney disease (Acute) Acute dyspnea (Acute) Acute kidney injury Vitamin D deficiency Chronic anemia Stage 3b chronic kidney disease PVC (premature ventricular contraction) Aortoiliac occlusive disease PAD (peripheral artery disease) Elevated troponin (Acute) Left leg numbness (Acute) Pneumonia Elevated troponin Paresthesia of left lower extremity Postlaminectomy syndrome of lumbar region Allergic rhinitis Diabetes mellitus, type II Chronic obstructive pulmonary disease inhalers daily/prn Depression PVD (peripheral vascular disease) BPH (benign prostatic hyperplasia) Chronic back pain Hypertension Idiopathic polyneuropathy Lumbosacral radiculopathy HLD (hyperlipidemia) Coronary atherosclerosis of [place] coronary vessel Medical History Hearing deficit History of COVID-19 Surgical History History of femoropopliteal bypass History of colonoscopy History of tooth extraction History of sinus surgery Family History Other No family history of adverse response to anesthesia Social History Smoking Status: Former smoker Tobacco Type: Cigarettes Age Started Using Tobacco: 17; Age Quit Using Tobacco: 61; packs per day: 1; Second Hand Exposure: No; Do You Dip or Chew Tobacco: No; Hx Alcohol Use: No Hx Substance Use: No Preferred Language: Slovak Communication Ability: Effective Visual Impairment: No Limitations Hearing Ability: Use of Hearing Aid Slate Worker Required: No Beliefs That Will Affect Care: None marital status: / Current Living Situation: Alone 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, 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 How many Children do You have: 2 How many Children do You have Comment: 2 biological kids 3 step children Feels Safe at Home: Yes Diet: regular caffeine: Yes (soda a 1-2 daily) Dental Care, Regularly: No Physical Activity Frequency: Does not Exercise Seatbelt Use: always Do you think of yourself as: straight/heterosexual Gender Identity: Male Assistive Devices: Cane, Denture - Upper, Glasses and Hearing Aid - Bilateral Review of Systems Review of Systems: All systems reviewed and are unremarkable except as noted below Physical Exam Physical Exam: Lying in bed with minimal distress due to cough and shortness of breath Constitutional: well developed, well nourished, + ill appearing and + obese Eyes: PERRL, conjunctivae normal, anicteric sclerae ENMT: external ear and nose normal, oropharynx normal Neck: trachea midline, no thyromegaly Respiratory: + respiratory distress (Minimal respirat ory distress at rest) Auscultation: + diminished lung sounds and + crackles (Occasional crackles at the bases) Cardiovascular: Rate/Rhythm: regular rate and regular rhythm; not tachycardic Heart Sounds: normal S1 and normal S2; no murmur Extremities: no edema Gastrointestinal (Abdomen): Inspection/Auscultation: normal bowel sounds; abdomen not distended Percussion/Palpation: abdomen soft; abdomen nontender Musculoskeletal: No acute arthritis involving any of the joint Neurologic: normal touch/pain/proprioception and moves all extremities; no focal motor deficits Psychiatric: A+Ox3, euthymic affect Lymphatic: no cervical or axillary lymphadenopathy Results & Data Results & Data Vital Signs (Past 12 Hours) Vital Signs Temp Pulse Resp BP Pulse Ox O2 Del Method 04/23/24 15:05 116/51 L 04/23/24 14:57 81 17 93 Room Air 04/23/24 14:21 97 H 21 94 Room Air 04/23/24 14:00 124/52 L 04/23/24 13:36 110 H 20 94 Room Air 04/23/24 13:27 104 H 19 94 Room Air 04/23/24 13:12 112 H 17 95 Room Air 04/23/24 13:01 Room Air 04/23/24 13:00 140/59 L 04/23/24 12:49 37.1 C 112 H 22 149/94 H 99 Room Air 04/23/24 12:46 117 H Laboratory Results Short CBC 04/23/24 Range/Units 12:45 WBC 12.55 H (4.8-10.8) K/ul Hgb 12.4 L (14.0-18.0) g/dl Hct 36.4 L (42.0-52.0) % Plt Count 141 (130-400) K/uL BMP 04/23/24 12:45 Sodium 134 L Potassium 2.9 L Chloride 102 Carbon Dioxide 19 L BUN 39 H Creatinine 2.67 H Glucose 169 H Calcium 8.1 L Liver Function 04/23/24 Range/Units 12:45 Total Bilirubin 0.6 (0.2-1.0) mg/dl AST 17 (13-39) U/L ALT 16 (7-52) U/L Alkaline Phosphatase 85 (34-104) U/L Albumin 4.2 (3.4-5.0) gm/dl Medications Administered Current Inpatient Medications Dextrose (Dextrose 50% 50 Ml Syringe) 25 - 50 ml IV UD PRN; Protocol PRN Reason: Hypoglycemia Protocol Stop: 05/23/24 15:32 Glucagon (Glucagon For Inj 1 Mg Vial) 1 mg SQ UD PRN; Protocol PRN Reason: Hypoglycemia Protocol Stop: 05/23/24 15:32 Glucose (Glucose 40% Gel 15 Gm Tube) 15 - 30 gm PO UD PRN; Protocol PRN Reason: Hypoglycemia Protocol Stop: 05/23/24 15:32 Glucose (Glucose 10 Tab/Tube) 4 - 8 tab PO UD PRN; Protocol PRN Reason: Hypoglycemia Protocol Stop: 05/23/24 15:32 Heparin Sodium (Porcine) (Heparin Sod 5,000 Unit/0.5 Ml Vial) 5,000 units SQ Q12 JULES Stop: 05/23/24 20:59 Potassium Chloride (K Jesus / Wtr) 10 meq in 100 mls @ 100 mls/hr IV Q1H JULES Stop: 04/23/24 16:59 Last Admin: 04/23/24 15:26 Dose: 100 mls/hr Magnesium Sulfate/Dextrose (Magnesium Sulfate / D5w) 1 gm in 100 mls @ 100 mls/hr IV NOW STA Stop: 04/23/24 16:05 Last Admin: 04/23/24 15:37 Dose: 100 mls/hr Insulin Aspart (Insulin Aspart Per Unit Charge) 0 units SC ACHS JULES Stop: 05/23/24 16:29 Miscellaneous (Carbohydrates For Hypoglycemia ) 15 - 30 gm PO UD PRN PRN Reason: Hypoglycemia Protocol Stop: 05/23/24 15:32
[2024-04-23] MEDS ORDERED: ALBUT/IPRATROP 3MG/0.5MG NEB 3 ML VIAL NEB PRN (16:18)
[2024-04-23 16:35] LABS: Appearance Urine Clear (Clear); Bacteria Urine Automated None Seen (None Seen); Bilirubin Urine Negative (Negative); Blood Urine Negative (Negative); Color Urine Yellow; Epithelial Cell Urine Auto 0-2 /hpf (0-2); Glucose Urine UA 3+ (Negative); Ketones Urine Trace (Negative); Leukocyte Esterase Urine Negative (Negative); Nitrite Urine Negative (Negative); Protein Urine 1+ (Negative); RBC Urine Automated 0-2 /hpf (0-2); Specific Gravity Urine 1.022 (1.000-1.030); Urobilinogen Urine Negative (Negative); WBC Urine Automated 0-5 /hpf (0-5); pH Urine 5.5 (4.5-7.5)
[2024-04-23] MEDS ORDERED: FLUTICASONE PROPIONATE NA SPR 16 GM BTL PRN (17:56)
[2024-04-23] MEDS ORDERED: ALBUTEROL HFA 8 GM INHALER INH PRN (17:56)
[2024-04-23] MEDS: NSS + 20MEQ KCL 20 MEQ/1,000 ML BAG IV SCH (18:32)
[2024-04-23] MEDS: POT PHOSPHATE MONOBASIC W/ SOD TAB PO SCH (18:33)
[2024-04-23] MEDS: cefTRIAXone SODIUM 2,000 MG/50 ML BAG IV SCH (18:33)
[2024-04-23] MEDS ORDERED: methylPREDNISolone 125 MG/2 ML VIAL IV SCH (21:00)
[2024-04-23] MEDS: TAMSULOSIN HCL 0.4 MG CAP PO SCH (22:33)
[2024-04-23] MEDS: guaiFENesin 600 MG TABCR PO SCH (22:33)
[2024-04-23] MEDS: busPIRone 5 MG TAB PO SCH (22:33)
[2024-04-23] MEDS: DOXYCYCLINE HYCLATE 100 MG CAP PO SCH (22:34)
[2024-04-23] MEDS: cilostazoL 100 MG TAB PO SCH (22:34)
[2024-04-23] MEDS: lisinopril 5 MG TAB PO SCH (22:35)
[2024-04-23] MEDS: PANTOprazole 40 MG TAB PO SCH (22:35)
[2024-04-23] MEDS: MIRTAZAPINE TAB 15 MG TAB PO SCH (22:36)
[2024-04-23] MEDS: ROSUVASTATIN CALCIUM 20 MG TAB PO SCH (22:37)
[2024-04-23] MEDS: METOPROLOL SUCC 25MG EXT REL TAB PO SCH (22:37)
[2024-04-23] MEDS: methylPREDNISolone 40 MG in SYRINGE 0 ML IV SCH (22:38)
[2024-04-23] MEDS: PREGABALIN 150 MG CAP PO SCH (22:53)
[2024-04-23] MEDS: BENZONATATE 100 MG CAPSULE PO PRN (22:53)
[2024-04-23] MEDS: INSULIN ASPART PER UNIT CHARGE SC SCH (22:54)
[2024-04-23] MEDS: HEPARIN SOD 5,000 UNIT/0.5 ML VIAL SQ SCH (22:54)
[2024-04-24] MEDS: ACETAMINOPHEN 325 MG TAB PO PRN (02:55)
[2024-04-24 07:51] LABS: Basophils # (auto) 0.02 K/uL (0.00-0.20); Basophils % (auto) 0.2 %; Hematocrit (blood only) 30.2 % (42.0-52.0); Hemoglobin 10.5 g/dl (14.0-18.0); Immature Granulocytes # (auto) 0.23 K/uL (0.01-0.20); Immature Granulocytes % (auto) 1.9 %; Lymphocytes # (auto) 0.73 K/uL (1.20-3.40); Lymphocytes % (auto) 6.1 %; Mean Corpuscular Hemoglobin 28.7 pg (25.0-34.0); Mean Corpuscular Hgb Conc 34.8 g/dL (32.0-36.0); Mean Corpuscular Volume 82.5 fL (80.0-100.0); Mean Platelet Volume 10.2 fL (9.4-12.4); Monocytes # (auto) 0.41 K/uL (0.11-0.59); Monocytes % (auto) 3.4 %; Neutrophils # (auto) 10.57 K/uL (1.40-6.50); Neutrophils % (auto) 88.4 %; Platelet Count 140 K/uL (130-400); RDW Coefficient of Variation 14.9 % (11.5-14.5); RDW Standard Deviation 45.3 fL (36.4-46.3); Red Blood Count 3.66 M/uL (4.70-6.10); White Blood Count 11.96 K/ul (4.8-10.8)
[2024-04-24 08:18] LABS: Anion Gap 7 (3-11); BUN Creatinine Ratio 17.7 (10-20); Blood Urea Nitrogen 32 mg/dl (6-23); Calcium 8.2 mg/dl (8.6-10.3); Carbon Dioxide 20 mmol/L (21-32); Chloride 110 mmol/L (98-107); Creatinine Clr Calc Pharmacy 36.6 ml/min; Glucose 172 mg/dl (70-99(Fasting)); Magnesium 1.8 mg/dl (1.7-2.4); Phosphorus < 1.0 mg/dl (2.5-4.9); Potassium 4.2 mmol/L (3.5-5.1); Sodium 137 mmol/L (136-145)
[2024-04-24] MEDS ORDERED: SODIUM PHOSPHATE 3 MMOL/1 ML INFUSION IV ONE (08:22)
[2024-04-24] MEDS: CYANOCOBALAMIN (B-12) 500 MCG TABLET PO SCH (08:52)
[2024-04-24] MEDS: EZETIMIBE 10 MG TAB PO SCH (08:52)
[2024-04-24] MEDS: CHOLECALCIFEROL 25 MCG (1000 UNITS) TAB PO SCH (08:52)
[2024-04-24] MEDS: amLODIPine BESYLATE 5 MG TAB PO SCH (08:53)
[2024-04-24] MEDS: ASPIRIN 81 MG ECTAB PO SCH (08:53)
[2024-04-24] MEDS: MULTIVITAMIN TAB PO SCH (08:53)
[2024-04-24] MEDS: UMECLIDINIUM BROMIDE 62.5MCG/BLISTER 7 PUFFS/INHALER INH SCH (08:56)
[2024-04-24] MEDS: POTASSIUM CHLORIDE CRTAB 20 MEQ TABCR PO SCH (09:03)
[2024-04-24] MEDS: SODIUM PHOSPHATE 30 MMOL in DEXTROSE 5% 500 ML IV ONE (09:31)
--- NOTE | 2024-04-24 13:03 | Hospitalist Progress Note ---
Date of Service April 24, 2024 Assessment & Plan (1) Influenza A: Plan: Acute on chronic COPD exacerbation Secondary to Influenza A infection B/L Pneumonia--POA --Chest CT:Emphysema with patchy bibasilar right greater than left opacities suggestive of pneumonia versus aspiration pneumonitis. Mild mediastinal and hilar lymphadenopathy, likely reactive. Biapical pleural parenchymal scarring with upper lung zone predominant scattered solid pulmonary nodules measuring up to 1.2 cm. An infectious or inflammatory process is favored. 3 month follow-up chest CT recommended. No pleural effusion. -- BioFire positive for influenza A --Isolation precautions Continue IV Solu-Medrol, nebs, Rocephin/doxycycline Given onset of symptoms, Tamiflu would not be helpful Saturating low 90s on room air Pulmonary hygiene, aspiration precautions Continue home inhalers Abnormal CT chest --CT Chest:Biapical pleural parenchymal scarring with upper lung zone predominant scattered solid pulmonary nodules measuring up to 1.2 cm. An infectious or inflammatory process is favored. 3 month follow-up chest CT recommended. Advised to get repeat CT chest in 3 months and follow-up with pulmonology as patient (2) Chronic obstructive pulmonary disease: Plan: Management as above (3) Acute kidney injury superimposed on chronic kidney disease: Plan: SINA on CKD II-III Cr: 2.6>1.8 Monitor renal function Avoid nephrotoxic agents as able Continue gentle IV fluids Bladder scan as needed Electrolytes Abnormalities Hypokalemia and hypomagnesemia Hypophosphatemia Monitor and replete electrolytes as needed (4) PVD (peripheral vascular disease): Plan: Continue cilostazol (5) Chronic back pain: Plan: Reports chronic back pain radiating to legs Follow-up as outpatient (6) Diabetes mellitus, type II: Plan: Has been on Jardiance and metformin Hold p.o. medications HbA1c pending Continue insulin while hospitalized Monitor blood glucose levels (7) HLD (hyperlipidemia): Plan: Continue statin DVT Px: Heparin SQ CODE STATUS Full code Admission and Anticipated Discharge Date Admission Date: April 23, 2024 Subjective Patient is seen and examined at bedside States feeling "lousy" Reports having significant cough Less dyspnea today Also reports having some chest congestion No other complaints Review of Systems Review of Systems: All systems reviewed & are unremarkable except as noted in Subjective Physical Exam Physical Exam: Physical Exam: Vitals signs as noted above General Appearance:Moderately built and nourished, no apparent distress Head: normocephalic, Atraumatic Eyes: normal inspection, EOMI Neck: supple, Trachea midline Respiratory/Chest: Decreased breath sounds, CTA, No accessory muscle use Cardiovascular: S1, S2, No murmur, tachycardia Abdomen/GI:Soft, Non tender, Bowel sounds present Extremities/Musculoskeletal:normal inspection, no edema Neurologic/Psych:AAOX3, grossly no focal neurological deficits Skin: normal color, warm Results & Data Results & Data Vital Signs (Past 12 Hours) Vital Signs Temp Pulse Pulse Resp BP Pulse Ox O2 Del Method 04/24/24 11:28 36.3 C L 110 H 20 155/64 H 92 Room Air 04/24/24 08:50 Room Air 04/24/24 08:29 36.3 C L 87 20 149/66 H 93 Room Air 04/24/24 07:00 88 04/24/24 03:31 36.4 C L 102 H 20 149/56 H 92 Room Air Laboratory Results Short CBC 04/23/24 04/24/24 Range/Units 12:45 06:59 WBC 12.55 H 11.96 H (4.8-10.8) K/ul Hgb 12.4 L 10.5 L (14.0-18.0) g/dl Hct 36.4 L 30.2 L (42.0-52.0) % Plt Count 141 140 (130-400) K/uL [facility] 04/23/24 04/24/24 12:45 06:59 Sodium 134 L 137 Potassium 2.9 L 4.2 D Chloride 102 110 H Carbon Dioxide 19 L 20 L BUN 39 H 32 H Creatinine 2.67 H 1.81 H D Glucose 169 H 172 H Calcium 8.1 L 8.2 L Liver Function 04/23/24 Range/Units 12:45 Total Bilirubin 0.6 (0.2-1.0) mg/dl AST 17 (13-39) U/L ALT 16 (7-52) U/L Alkaline Phosphatase 85 (34-104) U/L Albumin 4.2 (3.4-5.0) gm/dl Urine 04/23/24 Range/Units 16:15 Urine Color Yellow Urine Appearance Clear (Clear) Urine pH 5.5 (4.5-7.5) Ur Specific [place] 1.022 (1.000-1.030) Urine Protein 1+ H (Negative) Urine Glucose (UA) 3+ H (Negative)
[2024-04-24] MEDS: guaiFENesin 600 MG TABCR PO SCH (13:25)
[2024-04-24] MEDS: DICLOFENAC SOD 1% GEL 100 GM TUBE EXT PRN (21:38)
[2024-04-24] MEDS: hydrOXYzine HCl 25 MG TAB PO PRN (21:39)
[2024-04-25] MEDS: HYDROCODONE/ACETAMOPHEN 5/325MG TAB PO STA (05:28)
[2024-04-25] MEDS: oxyCODONE HCL IR 5 MG TAB (IMMEDIATE RELEASE) PO STA (05:45)
[2024-04-25 07:47] LABS: Hematocrit (blood only) 28.5 % (42.0-52.0); Hemoglobin 9.8 g/dl (14.0-18.0); Mean Corpuscular Hemoglobin 28.7 pg (25.0-34.0); Mean Corpuscular Hgb Conc 34.4 g/dL (32.0-36.0); Mean Corpuscular Volume 83.6 fL (80.0-100.0); Mean Platelet Volume 9.6 fL (9.4-12.4); Platelet Count 185 K/uL (130-400); RDW Coefficient of Variation 15.4 % (11.5-14.5); RDW Standard Deviation 47.3 fL (36.4-46.3); Red Blood Count 3.41 M/uL (4.70-6.10); White Blood Count 17.39 K/ul (4.8-10.8)
[2024-04-25 08:11] LABS: BUN Creatinine Ratio 17.9 (10-20); Calcium 7.3 mg/dl (8.6-10.3); Creatinine Clr Calc Pharmacy 42.5 ml/min; Magnesium 1.5 mg/dl (1.7-2.4); Phosphorus 2.5 mg/dl (2.5-4.9); Potassium 4.2 mmol/L (3.5-5.1)
[2024-04-25] MEDS: MAGNESIUM SULFATE / D5W 1 GM/100 ML BAG IV ONE (09:14)
[2024-04-25 09:52] LABS: Estimated Average Glucose 137 mg/dl; Hemoglobin A1C 6.4 % (4.5-5.6)
--- NOTE | 2024-04-25 17:14 | Hospitalist Progress Note ---
Date of Service April 25, 2024 Assessment & Plan (1) Influenza A: Plan: Acute on chronic COPD exacerbation Secondary to Influenza A infection B/L Pneumonia--POA --Chest CT:Emphysema with patchy bibasilar right greater than left opacities suggestive of pneumonia versus aspiration pneumonitis. Mild mediastinal and hilar lymphadenopathy, likely reactive. Biapical pleural parenchymal scarring with upper lung zone predominant scattered solid pulmonary nodules measuring up to 1.2 cm. An infectious or inflammatory process is favored. 3 month follow-up chest CT recommended. No pleural effusion. -- BioFire positive for influenza A --Isolation precautions Continue IV Solu-Medrol, nebs, Rocephin/doxycycline Given onset of symptoms, Tamiflu would not be helpful Saturating low 90s on room air Pulmonary hygiene, aspiration precautions Continue home inhalers Clinically improving Likely discharge in 1 to [address] chest --CT Chest:Biapical pleural parenchymal scarring with upper lung zone predominant scattered solid pulmonary nodules measuring up to 1.2 cm. An infectious or inflammatory process is favored. 3 month follow-up chest CT recommended. Advised to get repeat CT chest in 3 months and follow-up with pulmonology as patient (2) Chronic obstructive pulmonary disease: Plan: Management as above (3) Acute kidney injury superimposed on chronic kidney disease: Plan: SINA on CKD II-III Cr: 2.6>1.8>1.5 Monitor renal function Avoid nephrotoxic agents as able Received IV fluids Bladder scan as needed Encouraged to increase oral fluid intake Electrolytes Abnormalities Hypokalemia and hypomagnesemia Hypophosphatemia Monitor and replete electrolytes as needed (4) PVD (peripheral vascular disease): Plan: Continue cilostazol (5) Chronic back pain: Plan: Reports chronic back pain radiating to legs Follow-up as outpatient (6) Diabetes mellitus, type II: Plan: Has been on Jardiance and metformin Hold p.o. medications HbA1c pending Continue insulin while hospitalized Monitor blood glucose levels (7) HLD (hyperlipidemia): Plan: Continue statin DVT Px: Heparin SQ CODE STATUS Full code Admission and Anticipated Discharge Date Admission Date: April 23, 2024 Subjective Patient is seen and examined at bedside States feeling better today Cough, dyspnea, chest current improving No other complaints Saturating low 90s on room air Review of Systems Review of Systems: All systems reviewed & are unremarkable except as noted in Subjective Physical Exam Physical Exam: Physical Exam: Vitals signs as noted above General Appearance:Moderately built and nourished, no apparent distress Head: normocephalic, Atraumatic Eyes: normal inspection, EOMI Neck: supple, Trachea midline Respiratory/Chest: Decreased breath sounds, CTA, No accessory muscle use Cardiovascular: S1, S2, No murmur, tachycardia Abdomen/GI:Soft, Non tender, Bowel sounds present Extremities/Musculoskeletal:normal inspection, no edema Neurologic/Psych:AAOX3, grossly no focal neurological deficits Skin: normal color, warm Results & Data Results & Data Vital Signs (Past 12 Hours) Vital Signs Temp Pulse Pulse Resp BP Pulse Ox O2 Del Method 04/25/24 16:12 36.3 C L 83 18 135/63 92 Room Air 04/25/24 14:30 88 04/25/24 11:29 36.3 C L 79 18 133/60 92 Room Air 04/25/24 08:00 Room Air 04/25/24 07:53 36.4 C L 84 18 148/52 H 91 Room Air 04/25/24 07:00 88 Laboratory Results Short CBC 04/25/24 Range/Units 07:24 WBC 17.39 H (4.8-10.8) K/ul Hgb 9.8 L (14.0-18.0) g/dl Hct 28.5 L (42.0-52.0) % Plt Count 185 (130-400) K/uL BMP 04/25/24 07:24 Sodium 140 Potassium 4.2 Chloride 113 H Carbon Dioxide 20 L BUN 28 H Creatinine 1.56 H Glucose 140 H Calcium 7.3 L
[2024-04-25] MEDS: MAGNESIUM CHLORIDE W/CALCIUM 64MG DELAYED REL TAB PO SCH (21:01)
[2024-04-26 07:50] VITALS: O2SAT 91
[2024-04-26 08:31] LABS: Hematocrit (blood only) 35.3 % (42.0-52.0); Hemoglobin 11.7 g/dl (14.0-18.0); Mean Corpuscular Hemoglobin 28.1 pg (25.0-34.0); Mean Corpuscular Hgb Conc 33.1 g/dL (32.0-36.0); Mean Corpuscular Volume 84.9 fL (80.0-100.0); Mean Platelet Volume 9.9 fL (9.4-12.4); Nucleated RBC # (auto) 0.03 K/uL (0.00-0.12); Nucleated RBC % (auto) 0.2 %; Platelet Count 243 K/uL (130-400); RDW Coefficient of Variation 15.7 % (11.5-14.5); Red Blood Count 4.16 M/uL (4.70-6.10)
[2024-04-26 08:32] LABS: Calcium 7.4 mg/dl (8.6-10.3); Magnesium 1.6 mg/dl (1.7-2.4); Potassium 4.2 mmol/L (3.5-5.1)
[2024-04-26 08:37] LABS: BUN Creatinine Ratio 14.8 (10-20); Creatinine Clr Calc Pharmacy 40.9 ml/min
[2024-04-26] MEDS ORDERED: methylPREDNISolone 40 MG in SYRINGE 0 ML IV SCH (09:00)
[2024-04-26] MEDS: MAGNESIUM SULFATE / D5W 1 GM/100 ML BAG IV ONE (09:22)
[2024-04-26] MEDS: predniSONE 20 MG TAB PO SCH (10:03)
[2024-04-26] MEDS: cefTRIAXone SODIUM 2,000 MG/50 ML BAG IV SCH (10:07)
[2024-04-26 11:43] VITALS: RESP 16; TEMP 97.3
--- NOTE | 2024-04-26 12:43 | Hospitalist Progress Note ---
Date of Service April 26, 2024 Assessment & Plan (1) Influenza A: Plan: Acute on chronic COPD exacerbation Secondary to Influenza A infection B/L Pneumonia--POA --Chest CT:Emphysema with patchy bibasilar right greater than left opacities suggestive of pneumonia versus aspiration pneumonitis. Mild mediastinal and hilar lymphadenopathy, likely reactive. Biapical pleural parenchymal scarring with upper lung zone predominant scattered solid pulmonary nodules measuring up to 1.2 cm. An infectious or inflammatory process is favored. 3 month follow-up chest CT recommended. No pleural effusion. -- BioFire positive for influenza A --Isolation precautions Continue IV Solu-Medrol, nebs, Rocephin/doxycycline Given onset of symptoms, Tamiflu would not be helpful Pulmonary hygiene, aspiration precautions Continue home inhalers Transition IV Solu-Medrol to prednisone to complete the tapering course Will transition to oral antibiotics on discharge Plan to discharge home today Abnormal CT chest --CT Chest:Biapical pleural parenchymal scarring with upper lung zone predominant scattered solid pulmonary nodules measuring up to 1.2 cm. An infectious or inflammatory process is favored. 3 month follow-up chest CT recommended. Advised to get repeat CT chest in 3 months and follow-up with pulmonology as patient. Patient agrees with the plan. (2) Chronic obstructive pulmonary disease: Plan: Management as above (3) Acute kidney injury superimposed on chronic kidney disease: Plan: SINA on CKD II-III Cr: 2.6>1.8>1.6 Monitor renal function Avoid nephrotoxic agents as able Received IV fluids Bladder scan as needed Encouraged to increase oral fluid intake Advised to follow-up with nephrology as outpatient Electrolytes Abnormalities Hypokalemia and hypomagnesemia Hypophosphatemia Monitor and replete electrolytes as needed (4) PVD (peripheral vascular disease): Plan: Continue cilostazol (5) Chronic back pain: Plan: Reports chronic back pain radiating to legs Follow-up as outpatient (6) Diabetes mellitus, type II: Plan: Has been on Jardiance and metformin Hold p.o. medications HbA1c 6.4 Continue insulin while hospitalized Monitor blood glucose levels (7) HLD (hyperlipidemia): Plan: Continue statin DVT Px: Heparin SQ CODE STATUS Full code Disposition Home Admission and Anticipated Discharge Date Admission Date: April 23, 2024 Subjective Patient is seen and examined at bedside Doing well No new complaints Dyspnea, chest tightness resolved Cough much improved as well Offers no new complaints Prefers to be discharged home today S Review of Systems Review of Systems: All systems reviewed & are unremarkable except as noted in Subjective Physical Exam Physical Exam: Physical Exam: Vitals signs as noted above General Appearance:Moderately built and nourished, no apparent distress Head: normocephalic, Atraumatic Eyes: normal inspection, EOMI Neck: supple, Trachea midline Respiratory/Chest: Decreased breath sounds, CTA, No accessory muscle use Cardiovascular: S1, S2, No murmur Abdomen/GI:Soft, Non tender, Bowel sounds present Extremities/Musculoskeletal:normal inspection, no edema Neurologic/Psych:AAOX3, grossly no focal neurological deficits Skin: normal color, warm Results & Data Results & Data Vital Signs (Past 12 Hours) Vital Signs Temp Pulse Pulse Pulse Resp BP BP 04/26/24 11:42 36.3 C L 73 16 143/63 H 04/26/24 11:39 04/26/24 07:50 36.6 C 75 18 164/59 H 04/26/24 07:31 85 04/26/24 03:32 36.5 C 75 19 151/67 H Pulse Ox O2 Del Method 04/26/24 11:42 91 Room Air 04/26/24 11:39 Room Air 04/26/24 07:50 91 Room Air 04/26/24 07:31 04/26/24 03:32 93 Room Air Laboratory Results Short CBC 04/26/24 Range/Units 07:40 WBC 18.00 H (4.8-10.8) K/ul Hgb 11.7 L (14.0-18.0) g/dl Hct 35.3 L (42.0-52.0) % Plt Count 243 (130-400) K/uL BMP 04/26/24 07:40 Sodium 140 Potassium 4.2 Chloride 111 H Carbon Dioxide 22 BUN 24 H Creatinine 1.62 H Glucose 114 H Calcium 7.4 L
--- NOTE | 2024-04-26 12:57 | Discharge Summary ---
Date of Service April 26, 2024 Admission HPI Per Admitting Provider He is a 79-year-old male with significant past medical history of peripheral vascular disease, hyperlipidemia, hypertension, BPH, lumbar spine stenosis with chronic back pain, COPD and type 2 diabetes apparently has been complaining of cough with progressive shortness of breath for the last 5 days. His cough is mostly nonproductive and he does not have any fever and/or chills associated with it he denies any chest pain or palpitation. Denies any abdominal pain, nausea and or vomiting and does not have any problem with urine and bowel habit. He does not have any history of leg swelling as well. He has noted to have flu positive in the emergency room and also chest x-ray shows possible reticulonodular findings suggestive of infection and/or metastatic disease and was reported. He will have a CT of the chest to evaluate it further and the patient was admitted to medical telemetry unit for continuation of care. Admission Exam Per Admitting Provider Physical Exam: Lying in bed with minimal distress due to cough and shortness of breath Constitutional: well developed, well nourished, + ill appearing and + obese Eyes: PERRL, conjunctivae normal, anicteric sclerae ENMT: external ear and nose normal, oropharynx normal Neck: trachea midline, no thyromegaly Respiratory: + respiratory distress (Minimal respirat ory distress at rest) Auscultation: + diminished lung sounds and + crackles (Occasional crackles at the bases) Cardiovascular: Rate/Rhythm: regular rate and regular rhythm; not tachycardic Heart Sounds: normal S1 and normal S2; no murmur Extremities: no edema Gastrointestinal (Abdomen): Inspection/Auscultation: normal bowel sounds; abdomen not distended Percussion/Palpation: abdomen soft; abdomen nontender Musculoskeletal: No acute arthritis involving any of the joint Neurologic: normal touch/pain/proprioception and moves all extremities; no focal motor deficits Psychiatric: A+Ox3, euthymic affect Lymphatic: no cervical or axillary lymphadenopathy Principal Diagnosis Acute on chronic COPD exacerbation Influenza A infection Pneumonia Acute kidney injury Electrolyte abnormalities Discharge Data Allergies Allergy/AdvReac Type Severity Reaction Status Date / Time gabapentin Allergy Unknown Unknown Verified 02/27/24 12:01 duloxetine AdvReac Intermediate Insomnia Verified 02/27/24 12:01 oxycodone AdvReac Intermediate Abdominal Verified 02/27/24 12:01 Discomfort, Vomiting, Headache Consultations 04/23/24 14:52 ED Decision to Admit Stat Procedures Performed Laboratory Results WBC 18.00 K/ul (4.8-10.8) H 04/26/24 07:40 RBC 4.16 M/uL (4.70-6.10) L 04/26/24 07:40 Hgb 11.7 g/dl (14.0-18.0) L 04/26/24 07:40 Hct 35.3 % (42.0-52.0) L 04/26/24 07:40 MCV 84.9 fL (80.0-100.0) 04/26/24 07:40 MCH 28.1 pg (25.0-34.0) 04/26/24 07:40 MCHC 33.1 g/dL (32.0-36.0) 04/26/24 07:40 RDW Std Deviation 49.0 fL (36.4-46.3) H 04/26/24 07:40 RDW Coeff of Chauncey 15.7 % (11.5-14.5) H 04/26/24 07:40 Plt Count 243 K/uL (130-400) 04/26/24 07:40 MPV 9.9 fL (9.4-12.4) 04/26/24 07:40 Immature Gran % (Auto) 1.9 % 04/24/24 06:59 Neut % (Auto) 88.4 % 04/24/24 06:59 Lymph % (Auto) 6.1 % 04/24/24 06:59 Curry % (Auto) 3.4 % 04/24/24 06:59 Eos % (Auto) 0.0 % 04/24/24 06:59 Baso % (Auto) 0.2 % 04/24/24 06:59 Neut # (Auto) 10.57 K/uL (1.40-6.50) H 04/24/24 06:59 Lymph # (Auto) 0.73 K/uL (1.20-3.40) L 04/24/24 06:59 Curry # (Auto) 0.41 K/uL (0.11-0.59) 04/24/24 06:59 Eos # (Auto) 0.00 K/uL (0.00-0.50) 04/24/24 06:59 Baso # (Auto) 0.02 K/uL (0.00-0.20) 04/24/24 06:59 Immature Gran # (Auto) 0.23 K/uL (0.01-0.20) H 04/24/24 06:59 Absolute Nucleated RBC 0.03 K/uL (0.00-0.12) 04/26/24 07:40 Nucleated RBC % (auto) 0.2 % 04/26/24 07:40 PT 10.9 Seconds (9.0-12.0) 04/23/24 12:45 INR 1.0 (0.9-1.1) 04/23/24 12:45 Sodium 140 mmol/L (136-145) 04/26/24 07:40 Potassium 4.2 mmol/L (3.5-5.1) 04/26/24 07:40 Chloride 111 mmol/L (98-107) H 04/26/24 07:40 Carbon Dioxide 22 mmol/L (21-32) 04/26/24 07:40 Anion Gap 7 (3-11) 04/26/24 07:40 BUN 24 mg/dl (6-23) H 04/26/24 07:40 Creatinine 1.62 mg/dl (0.6-1.4) H 04/26/24 07:40 Est Cr Clr Drug Dosing 40.9 ml/min 04/26/24 07:40 eGFR 43.18 04/26/24 07:40 BUN/Creatinine Ratio 14.8 (10-20) 04/26/24 07:40 Glucose 114 mg/dl (70-99(Fasting)) H 04/26/24 07:40 POC Glucose 140 mg/dl (70-99) H 04/26/24 12:20 Estimat Average Glucose 137 mg/dl 04/24/24 06:59 Hemoglobin A1c 6.4 % (4.5-5.6) H 04/24/24 06:59 Calcium 7.4 mg/dl (8.6-10.3) L 04/26/24 07:40 Phosphorus 3.0 mg/dl (2.5-4.9) 04/26/24 07:40 Magnesium 1.6 mg/dl (1.7-2.4) L 04/26/24 07:40 Total Bilirubin 0.6 mg/dl (0.2-1.0) 04/23/24 12:45 AST 17 U/L (13-39) 04/23/24 12:45 ALT 16 U/L (7-52) 04/23/24 12:45 Alkaline Phosphatase 85 U/L (34-104) 04/23/24 12:45 Troponin I High Sens 11.1 pg/ml (0-20) 04/23/24 12:45 B-Natriuretic Peptide 30 pg/ml (0-100) 04/23/24 12:45 Total Protein 7.4 gm/dl (6.0-8.3) 04/23/24 12:45 Albumin 4.2 gm/dl (3.4-5.0) 04/23/24 12:45 Globulin 3.2 gm/dl (2.5-4.0) 04/23/24 12:45 Albumin/Globulin Ratio 1.3 (0.9-2) 04/23/24 12:45 Procalcitonin 0.13 ng/ml (0-0.5) 04/23/24 12:45 Urine Color Yellow 04/23/24 16:15 Urine Appearance Clear (Clear) 04/23/24 16:15 Urine pH 5.5 (4.5-7.5) 04/23/24 16:15 Ur Specific [place] 1.022 (1.000-1.030) 04/23/24 16:15 Urine Protein 1+ (Negative) H 04/23/24 16:15 Urine Glucose (UA) 3+ (Negative) H 04/23/24 16:15 Urine Ketones Trace (Negative) H 04/23/24 16:15 Urine Blood Negative (Negative) 04/23/24 16:15 Urine Nitrite Negative (Negative) 04/23/24 16:15 Urine Bilirubin Negative (Negative) 04/23/24 16:15 Urine Urobilinogen Negative (Negative) 04/23/24 16:15 Ur Leukocyte Esterase Negative (Negative) 04/23/24 16:15 Urine WBC (Auto) 0-5 /hpf (0-5) 04/23/24 16:15 Urine RBC (Auto) 0-2 /hpf (0-2) 04/23/24 16:15 U Hyaline Cast (Auto) 3-5 /lpf (0-2) H 04/23/24 16:15 U Epithel Cells (Auto) 0-2 /hpf (0-2) 04/23/24 16:15 Urine Bacteria (Auto) None Seen (None Seen) 04/23/24 16:15 Adenovirus (PCR) Not Detected (NotDetected) 04/23/24 12:58 B. pertussis DNA (PCR) Not Detected (NotDetected) 04/23/24 12:58 B.parapertussis DNA PCR Not Detected (NotDetected) 04/23/24 12:58 C. pneumoniae DNA (PCR) Not Detected (NotDetected) 04/23/24 12:58 Coronavirus OC43 (PCR) Not Detected (NotDetected) 04/23/24 12:58 Coronavirus HKU1 (PCR) Not Detected (NotDetected) 04/23/24 12:58 Coronavirus 229E (PCR) Not Detected (NotDetected) 04/23/24 12:58 SARS-CoV-2 (PCR) Not Detected (NotDetected) 04/23/24 12:58 Coronavirus NL63 (PCR) Not Detected (NotDetected) 04/23/24 12:58 Human Metapneumovir PCR Not Detected (NotDetected) 04/23/24 12:58 Influenza A (H3) PCR DETECTED (NotDetected) A 04/23/24 12:58 Influenza Type B (PCR) Not Detected (NotDetected) 04/23/24 12:58 M. pneumoniae (PCR) Not Detected (NotDetected) 04/23/24 12:58 Parainfluenza 1 (PCR) Not Detected (NotDetected) 04/23/24 12:58 Parainfluenza 2 (PCR) Not Detected (NotDetected) 04/23/24 12:58 Parainfluenza 3 (PCR) Not Detected (NotDetected) 04/23/24 12:58 Parainfluenza 4 (PCR) Not Detected (NotDetected) 04/23/24 12:58 RSV (PCR) Not Detected (NotDetected) 04/23/24 12:58 Entero/Rhino (PCR) Not Detected (NotDetected) 04/23/24 12:58 Impressions Chest X-Ray 04/23/24 12:50 XR chest 1V portable CLINICAL HISTORY: Dyspnea COMPARISON STUDY: 05/04/2023 FINDINGS: Stable lower thoracic neurostimulator lead. Heart size and pulmonary vasculature are normal. There are diffuse reticular nodular opacities in the lungs, mildly progressive. No lobar consolidation or pleural effusion. No pneumothorax. IMPRESSION: Mildly progressive diffuse reticular nodular pulmonary opacities. Differential diagnosis includes infectious/inflammatory etiology and pulmonary metastatic disease. ACT 112: Positive. There are findings on this exam that require communication between the performing entity and the patient following Patient Test Result Information Act ([place] Act 112) guidelines. Electronically signed by: Francisco Javier Ryan M.D. 04/23/2024 1:[address] 04/23/24 15:02 CT chest diagnostic wo con CT DOSE: 533.27 mGy.cm CLINICAL HISTORY: 79 years-old Male with infection vs mets on CXR. Acute cough which was breath and wheezing TECHNIQUE: Multiaxial CT images of the chest were performed without contrast. A dose lowering technique was utilized adhering to the principles of ALARA. COMPARISON: Chest radiograph of same day FINDINGS: No thyroid nodule. Loculated pericardial fluid versus lymph node on image 80 series 4 measures 2.4 x 1.2 cm. 1.5 cm subcarinal lymph node. Borderline-enlarged hilar lymph nodes. Trace pericardial effusion. Heart is normal in size. Mild coronary artery calcifications. Atherosclerosis of the aorta without aneurysm. No pneumothorax, pleural effusion or overt pulmonary edema. Biapical pleural- parenchymal scarring. Moderate pulmonary emphysema. Mild patchy bibasilar groundglass and nodular consolidative foci, right greater than left. Scattered calcified pulmonary granulomata. Upper lung zone prominent distribution of noncalcified pulmonary nodules measure up to 12 mm in the right lung apex on image 51 series 4. The remainder of the nodules are mostly subcentimeter. Several are perifissural and partially calcified. Central airways are patent. Partially imaged exophytic cyst of the left kidney. Unremarkable soft tissues. No acute fracture. Partially imaged spinal stimulator lead within the mid thoracic spine central canal. IMPRESSION: 1. Emphysema with patchy bibasilar right greater than left opacities suggestive of pneumonia versus aspiration pneumonitis. 2. Mild mediastinal and hilar lymphadenopathy, likely reactive. 3. Biapical pleural parenchymal scarring with upper lung zone predominant scattered solid pulmonary nodules measuring up to 1.2 cm. An infectious or inflammatory process is favored. 3 month follow-up chest CT recommended. 4. No pleural effusion. ACT 112: Negative or not required by law. Electronically signed by: Pan Stratton M.D. 04/23/2024 3:50 PM Ordered Studies 04/23/24 15:02 CT chest without contrast [CT chest diagnostic wo con] Stat Hospital Course (1) Influenza A: Acute on chronic COPD exacerbation Secondary to Influenza A infection B/L Pneumonia--POA --Chest CT:Emphysema with patchy bibasilar right greater than left opacities suggestive of pneumonia versus aspiration pneumonitis. Mild mediastinal and hilar lymphadenopathy, likely reactive. Biapical pleural parenchymal scarring with upper lung zone predominant scattered solid pulmonary nodules measuring up to 1.2 cm. An infectious or inflammatory process is favored. 3 month follow-up chest CT recommended. No pleural effusion. -- BioFire positive for influenza A --Isolation precautions Continue IV Solu-Medrol, nebs, Rocephin/doxycycline Given onset of symptoms, Tamiflu would not be helpful Pulmonary hygiene, aspiration precautions Continue home inhalers Transition IV Solu-Medrol to prednisone to complete the tapering course Will transition to oral antibiotics on discharge Plan to discharge home today Abnormal CT chest --CT Chest:Biapical pleural parenchymal scarring with upper lung zone predominant scattered solid pulmonary nodules measuring up to 1.2 cm. An infectious or inflammatory process is favored. 3 month follow-up chest CT recommended. Advised to get repeat CT chest in 3 months and follow-up with pulmonology as patient. Patient agrees with the plan. 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 medications HbA1c 6.4 Continue insulin while hospitalized Monitor blood glucose levels (7) HLD (hyperlipidemia): Continue statin DVT Px: Heparin SQ CODE STATUS Full code Disposition Home Total Time Total Time Spent Total Time Spent (In Minutes): 55 minutes Discharge Plan Discharge Items Patient Disposition: Home - Self-Care Reason For Visit: FLU,COPD EXA,CAP Discharge Diagnosis: Acute on chronic COPD exacerbation Influenza A infection Pneumonia Acute kidney injury Electrolyte abnormalities Activity: Per Instructions section Exercise/Sports: Gradually increase as tolerated Non-emergency contact: Primary Care Provider Call non-emergency contact if: you have any medication questions, your symptoms worsen, your pain is concerning for you and you have a fever Follow-up/Referrals: Martin Juarez MD [Primary Care Provider] - (The office will call you with a follow up appointment.) Diet: Carb Consistent or DM2 Addtl Attending Provider Instructions: Follow-up with your primary care physician Dr.Selvestri Mccarthy in 1 week as advised Follow-up with your transportation design engineer in 1 to 2 weeks as advised --Get repeat chest CT scan to ensure resolution of Pneumonia and follow-up with your technical consultant for further evaluation of pulmonary nodules -- Complete the antibiotic course cefuroxime and doxycycline and prednisone tapering course as prescribed. Prednisone tapering course Start taking prednisone 30 mg daily for 2 days, then take 20 mg daily for 2 days, then take 10 mg daily for 2 days. Seek immediate medical attention if your symptoms reoccur or worsen Please take all medications as instructed on discharge list below. Please call if you have any questions or problems. You can reach a [facility] hospitalist on duty at [facility] 24 hours a day by calling [phone] Pending Studies at Discharge: No Stand-Alone Forms: My [facility], Smoking Cessation Medications and DC Order Prescriptions: New doxycycline hyclate 100 mg Capsule 100 mg PO BID Qty: 8 0RF magnesium chloride [Mag 64] 64 mg Tablet,Delayed Release (Dr/Ec) 64 mg PO BID Qty: 60 0RF cefuroxime axetil 500 mg tablet 500 mg PO BID Qty: 8 0RF prednisone 10 mg tablet 10 mg PO DIRECTED Qty: 12 0RF Rx Instructions: Start taking prednisone 30 mg daily for 2 days, then take 20 mg daily for 2 days, then take 10 mg daily for 2 days. Continued cholecalciferol (vitamin D3) 25 mcg (1,000 unit) tablet 10 mcg PO DAILY multivitamin Tablet 1 tab PO QAM buspirone 5 mg Tablet 5 mg PO BID cilostazol 100 mg Tablet 100 mg PO BID aspirin 81 mg Tablet,Delayed Release (Dr/Ec) 81 mg PO QAM pantoprazole 20 mg Tablet,Delayed Release (Dr/Ec) 40 mg PO BID tamsulosin 0.4 mg Capsule 0.4 mg PO HS mirtazapine 30 mg Tablet 30 mg PO HS albuterol sulfate 90 mcg/actuation Hfa Aerosol Inhaler 1 inh INHALATION QID PRN (Reason: Shortness Of Breath) rosuvastatin 40 mg Tablet 40 mg PO HS pregabalin 150 mg Capsule 150 mg PO UD Rx Instructions: 150mg po bid. per [facility] list diclofenac sodium 1 % Gel 2 g TOPICAL BID PRN (Reason: Pain) tiotropium bromide 2.5 mcg/actuation Mist 2 inh INHALATION QAM ascorbic acid (vitamin C) [Vitamin C] 1,000 mg Tablet 1 g PO UD Rx Instructions: 1g po qam. not on list from [place] cyanocobalamin (vitamin B-12) [Vitamin B-12] 1,000 mcg Tablet 1,000 mcg PO UD Rx Instructions: 1000 mcg po qam not on list from [place] lisinopril 5 mg Tablet 5 mg PO HS theophylline 400 mg Tablet Extended Release 24 Hr 400 mg PO DAILY potassium chloride 20 mEq/15 mL Liquid 20 meq PO DAILY lactase 3,000 unit Tablet 3,000 unit PO TID PRN (Reason: Lactose Intolerance) capsaicin 0.025 % Cream 1 applic TOPICAL BID PRN (Reason: Pain) Rx Instructions: do not wash area for at least 30 min after application calcium citrate-vitamin D3 [Calcium Citrate + D] 315 mg-5 mcg (200 unit) Tablet 2 tab PO BID denosumab 60 mg/mL Syringe 60 mg subcut .[id number] semaglutide 2 mg subcut WK Rx Instructions: 2mg/0.75ml loperamide 2 mg capsule 2 mg PO UD PRN (Reason: loose stool) Rx Instructions: 2 mg po bid prn. not on list from [place] benzonatate 100 mg capsule 100 mg PO UD PRN (Reason: cough) Rx Instructions: 100 mg po tid prn. not on list from [place] Phospha 250 Neutral 250 mg tablet 1 tab PO UD Rx Instructions: 1 tab po qid. not on list from [place] guaifenesin [Mucinex] 600 mg tablet extended release 12hr 1,200 mg PO UD Rx Instructions: 600 mg po q12. not on list from [place] Jardiance 10 mg tablet 12.5 mg PO DAILY metformin 500 mg Tablet 500 mg PO BID amlodipine 5 mg Tablet 5 mg PO DAILY hydroxyzine HCl 25 mg Tablet 25 mg PO HS PRN (Reason: Insomnia) Rx Instructions: MAY TAKE 2ND TABLET IF NEEDED fluticasone propionate 50 mcg/actuation [place],Suspension 1 spray INTRANASAL BID PRN (Reason: Nasal Congestion) Rx Instructions: administer into each nostril ezetimibe 10 mg Tablet 10 mg PO DAILY metoprolol succinate 25 mg Tablet Extended Release 24 Hr 25 mg PO BID Qty: 60 0RF Discharge Orders: Discharge Order (Routine); Ordered 04/26/24 Ordered By: Kuldip Cannon/Other Patient Handouts: Managing Type 2 Diabetes Admission Data Admit Date/Time: 04/23/24 16:25 Attending Provider: Kuldip Urbano Admit Provider: Pradeep Knight Primary Care Provider: Martin Juarez Other Providers: Pradeep Knight; [facility]
[2024-04-26 13:15] VITALS: BP 164/59; PULSE 75
== END 2024-04-26 13:44 | disposition home or self-care (01) | DRG 194 ==
LOC: ED 12:35 → SUATTDRO 16:25 → EDINP 16:25 → 2N 17:57
DX: E83.51 Hypocalcemia; J10.08 Influenza due to other identified influenza virus with other specified pneumonia; J44.9 Chronic obstructive pulmonary disease, unspecified; N17.9 Acute kidney failure, unspecified; E87.6 Hypokalemia; J43.9 Emphysema, unspecified; F32.A Depression, unspecified; Z79.84 Long term (current) use of oral hypoglycemic drugs; Z88.5 Allergy status to narcotic agent; E11.42 Type 2 diabetes mellitus with diabetic polyneuropathy; J69.0 Pneumonitis due to inhalation of food and vomit; N18.30 Chronic kidney disease, stage 3 unspecified; E11.22 Type 2 diabetes mellitus with diabetic chronic kidney disease; E78.5 Hyperlipidemia, unspecified; N40.0 Benign prostatic hyperplasia without lower urinary tract symptoms; I12.9 Hypertensive chronic kidney disease with stage 1 through stage 4 chronic kidney disease, or unspecified chronic kidney disease; Z87.891 Personal history of nicotine dependence; Z79.82 Long term (current) use of aspirin; E11.51 Type 2 diabetes mellitus with diabetic peripheral angiopathy without gangrene